=== PATIENT | male | born 1965 | race Hispanic/Latino ===

== ENCOUNTER 2018-01-26 09:55 | Observation (INO) | payer BC ==
[2018-01-26] MEDS ORDERED: NA CHLORIDE 0.9% 1,000 ML ONE ×3 (10:48→17:26)
[2018-01-26] MEDS ORDERED: ONDANSETRON 4 MG/2 ML VIAL ONE (10:48)
[2018-01-26] MEDS ORDERED: MORPHINE 4 MG/ML SYR ONE ×3 (10:48→16:27)
[2018-01-26 10:58] LABS: Absolute Lymphocytes (CBC) 1.3 K/uL (0.7-4.9); Absolute Neutrophil 11.4 K/uL (1.8-8.0); Basophils % 0.5 % (0-1.3); Eosinophils % 0.4 % (0-4.4); Lymphocytes % 9.4 % (15.3-44.8); MCH 29.9 pg (27.0-35.0); MPV 8.7 fL (7.6-11.3); Monocytes % 7.1 % (3.3-12.3); RBC Red Blood Cell Count 5.69 M/uL (4.33-5.43)
[2018-01-26 11:07] LABS: Bicarbonate 24 mEq/L (21-31); Glucose Level 218 mg/dL (65-120); Lipase 26 U/L (22-51); Sodium Level 134 mEq/L (135-145)
[2018-01-26 11:08] LABS: Glomerular Filtration Rate > 60 mL/min (>60)
[2018-01-26 11:13] LABS: ALT/SGPT 47 IU/L (10-60); AST/SGOT 25 IU/L (10-42); Albumin 4.3 g/dL (3.2-5.5); Alkaline Phosphatase 81 IU/L (42-121); Amylase Level 45 U/L (28-100); BUN Blood Urea Nitrogen 13 mg/dL (6-20); Bilirubin Direct 0.2 mg/dL (0-0.2); Bilirubin Total 1.4 mg/dL (0.3-1.2); Glomerular Filtration Rate > 90 mL/min (=/>90); Protein, Total 7.5 g/dL (6.0-8.3)
[2018-01-26 11:17] LABS: Urine Bilirubin NEGATIVE (NEG); Urine Blood 3+ (NEG); Urine Glucose 3+ (NEG); Urine Protein 3+ (NEG); Urine Specific Gravity >=1.030 (1.005-1.030); Urine Urobilinogen 0.2 mg/dL (0.2-1.0); Urine pH 6.5 (5.0-7.0)
[2018-01-26 11:31] LABS: Urine Appearance TURBID; Urine Color RED
[2018-01-26 11:34] LABS: Urine Bacteria NONE SEEN /HPF (NONE SEEN); Urine Culture Reflex Order NOT NEEDED; Urine RBC >50 /HPF (NONE SEEN)
--- NOTE | 2018-01-26 11:49 | RAD REPORT ---
EXAM DESCRIPTION: CTAbdomen Pelvis W Contrast - 01/26/2018 11:39 am CLINICAL HISTORY: Abdominal pain. Difficulty urinating. COMPARISON: 10/12/2012 TECHNIQUE: Biphasic CT imaging of the abdomen and pelvis was performed with 100 ml non-ionic IV cont rast. All CT scans are performed using dose optimization technique as appropriate and may include automated exposure control or mA/KV adjustment according to patient size. FINDINGS: Mild linear opacity is present in the lingula.No focal infiltrate is seen. Diffuse fatty liver is present. No focal mass or biliary dilatation. The spleen, pancreas, and kidney s show no acute or aggressive abnormality. No bowel obstruction, free air, free fluid or abscess. The appendix is normal. No evidence of signi ficant lymphadenopathy. Urinary bladder is decompressed with thickening of the wall. Asymmetric nodularity along the posterio r bladder wall, greater on the right measuring 6 mm noted. Prostate gland is mildly prominent. Fat co ntaining inguinal hernias are present bilaterally, greater on the right. No suspicious bony findings. IMPRESSION: Prominent thickening of the urinary bladder wall is noted with nodularity/mass along the right measuring 6 mm. Direct visualization with cystoscopy would be recommended.
[2018-01-26] MEDS ORDERED: LIDOCAINE VISCOUS 2% SOLN 15 ML UDC ONE (14:19)
[2018-01-26] MEDS ORDERED: NACL 0.9% IRR SOLN 0 ML IRR ONE (14:34)
--- NOTE | 2018-01-26 17:15 | ER ---
Nurse's Notes [facility] Name: Enmanuel Jones Age: 52 yrs Sex: Male : 1965 Arrival Date: 01/26/2018 Time: 10:01 Bed 20 Private MD: Diagnosis: Cystitis, unspecified with hematuria Presentation: 01/26 10:15 Presenting complaint: Patient states: c/o blood in urine. iw 10:15 Onset of symptoms was January 26, 2018. Care prior to arrival: None. iw 10:15 Acuity: BELLA 3 iw 10:41 Transition of care: patient was not received from another setting of care. iw 10:41 Method Of Arrival: Wheelchair iw Historical: - Allergies: 10:51 No Known Allergies; iw - Home Meds: 10:50 Amiodarone Oral [Active]; aspirin 81 mg Oral chew 1 tab once daily [Active]; iw atorvastatin 80 mg Oral tab 1 tab once daily [Active]; carvedilol 12.5 mg Oral tab 1 tab 2 times per day [Active]; Jardiance Oral [Active]; losartan 100 mg Oral tab 1 tab once daily [Active]; metformin 500 mg Oral Tb24 1 tab once daily [Active]; victoza [Active]; - PMHx: 10:50 Diabetes - NIDDM; Hyperlipidemia; Hypertension; Myocardial infarction; Pneumonia; iw - PSHx: 10:50 None; iw - Immunization history:: Adult Immunizations up to date. - Social history:: Smoking status: Patient/guardian denies using tobacco. Screenin:06 Abuse screen: Denies threats or abuse. Nutritional screening: No deficits noted. em Tuberculosis screening: No symptoms or risk factors identified. Fall Risk None identified. Assessment: 10:30 General: Appears in no apparent distress. uncomfortable, Behavior is calm, cooperative. em Pain: Complains of pain in abdomen Pain radiates to back Pain currently is 8 out of 10 on a pain scale. Pain began 0845. Neuro: Level of Consciousness is awake, alert, obeys commands, Oriented to person, place, time, situation. Cardiovascular: Capillary refill < 3 seconds Patient's skin is warm and dry. Respiratory: Airway is patent Respiratory effort is even, unlabored, Respiratory pattern is regular, symmetrical. GI: Abdomen is round non-distended, Bowel sounds present X 4 quads. Abd is soft X 4 quads Abdomen is tender to palpation in right lower quadrant and left lower quadrant Patient currently denies nausea, vomiting. : Urine is beatriz blood, Reports burning with urination, urinary frequency. EENT: No signs and/or symptoms were reported regarding the EENT system. Derm: Skin is intact, Skin is pink, warm \T\ dry. Musculoskeletal: Range of motion: intact in all extremities. 10:40 Reassessment: Patient appears in no apparent distress at this time. I agree with above iw assessment by Russ Mane LVN. 11:30 Reassessment: Patient appears in no apparent distress at this time. Patient and/or em family updated on plan of care and expected duration. Pain level reassessed. Patient is alert, oriented x 3, equal unlabored respirations, skin warm/dry/pink. gone for CT. 13:08 Reassessment: Patient appears in no apparent distress at this time. Patient and/or em family updated on plan of care and expected duration. Pain level reassessed. Patient is alert, oriented x 3, equal unlabored respirations, skin warm/dry/pink. has been using urinal to void, 300 mL beatriz flood urine, Brianna, FINANCIAL RECRUITER notified. 14:00 Reassessment: Patient appears in no apparent distress at this time. Patient and/or em family updated on plan of care and expected duration. Pain level reassessed. Patient is alert, oriented x 3, equal unlabored respirations, skin warm/dry/pink. 15:59 Reassessment: Patient appears in no apparent distress at this time. Patient and/or em family updated on plan of care and expected duration. Pain level reassessed. Patient is alert, oriented x 3, equal unlabored respirations, skin warm/dry/pink. 17:00 Reassessment: Patient appears in no apparent distress at this time. Patient and/or em family updated on plan of care and expected duration. Pain level reassessed. Patient is alert, oriented x 3, equal unlabored respirations, skin warm/dry/pink. Patient states symptoms have not improved. 17:40 Reassessment: Patient appears in no apparent distress at this time. No changes from em previously documented assessment. Patient and/or family updated on plan of care and expected duration. Pain level reassessed. Patient is alert, oriented x 3, equal unlabored respirations, skin warm/dry/pink. irrigated bladder with 1 L NS, clear tinged fluid, pt tolerated well. Vital Signs: 10:40 BP 136 / 88; Pulse 88; Resp 16 S; Temp 98.2; Pulse Ox 95% on R/A; iw 11:58 BP 119 / 76; Pulse 85; Resp 16; Pulse Ox 99% on R/A; Pain 2/10; em 14:04 BP 141 / 90; Pulse 89; Resp 18; Temp 98; Pulse Ox 99% on R/A; em 15:30 BP 133 / 86; Pulse 86; Resp 18; Pulse Ox 99% on R/A; Pain 4/10; em 16:30 BP 123 / 80; Pulse 94; Resp 16; Pulse Ox 99% on R/A; Pain 4/10; em 18:05 BP 126 / 85; Pulse 97; Resp 16; Pulse Ox 99% on R/A; Pain 5/10; em 19:14 BP 140 / 91; Pulse 95; Resp 17 S; Pulse Ox 97% on R/A; jd3 ED Course: 10:01 Patient arrived in ED. iw 10:12 Brianna Bloom NP is PHCP. rh1 10:12 Jung Moreland MD is Attending Physician. rh1 10:21 Russ Mane LVN is Primary Nurse. em 10:42 Triage completed. iw 10:45 No provider procedures requiring assistance completed. Inserted saline lock: 20 gauge em in right forearm, using aseptic technique. Blood collected. 10:45 Initial lab(s) drawn, by id, sent to lab. Urine collected: clean catch specimen, beatriz em blood. 11:06 Patient has correct armband on for positive identification. Placed in gown. Bed in low em position. Call light in reach. Side rails up X2. Adult w/ patient. 11:07 Arm band placed on. em 15:20 Coud inserted, using sterile technique, 18 Fr. Returned bloody urine. To gravity em drainage. Patient tolerated well. 15:43 Bladder irrigated via Weeks with 1 liter normal saline returned clear blood tinged em Patient tolerated well. 17:14 Shivani Muñoz MD is Hospitalizing Provider. rh1 17:40 Bladder irrigated via Weeks with 1 liter normal saline returned clear tinged fluid em Patient tolerated well. 20:26 Patient admitted, IV remains in place. jd3 Administered Medications: 10:35 Drug: NS 0.9% 1000 ml Route: IV; Rate: 1000 ml; Site: right forearm; iw 18:57 Follow up: IV Status: Completed infusion; IV Intake: 1000ml em 10:40 Drug: morphine 4 mg Route: IVP; Site: right forearm; iw 11:31 Follow up: Response: No adverse reaction; Pain is decreased em 10:40 Drug: Zofran 4 mg Route: IVP; Site: right forearm; iw 11:31 Follow up: Response: No adverse reaction em 15:00 Drug: morphine 4 mg Route: IVP; Site: right forearm; em 15:54 Follow up: Response: No adverse reaction; Pain is decreased em 15:15 Drug: Lidocaine Gel 2 % 1 application Route: Mucous Membrane; em 15:55 Follow up: Response: No adverse reaction em 16:15 Drug: morphine 4 mg Route: IVP; Site: right forearm; em 17:10 Follow up: Response: No adverse reaction; Pain is decreased em Intake: 18:57 IV: 1000ml; Total: 1000ml. em 13:07 beatriz blood urine em Output: 13:07 Urine: 300ml (Voided); Total: 300ml. em 13:07 beatriz blood urine em Outcome: 17:14 Decision to Hospitalize by Provider. [facility] 20:26 Admitted to Med/surg accompanied by alexandra, via stretcher, room 212, with chart, Report jd3 called to Lupe ASHER 20:26 Condition: stable 20:26 Instructed on the need for admit, Demonstrated understanding of instructions. 20:56 Patient left the ED. jd3 Signatures: Russ Mane LVN REFUELING RAMP ATTENDANT em Bethanie Carbajal, RN LB iw Brianna Bloom NP FINANCIAL RECRUITER 1 Juan Miguel Hinds RN RN jd3
--- NOTE | 2018-01-26 17:15 | EDPHYS ---
Physician Documentation [facility] Name: Enmanuel Jones Age: 52 yrs Sex: Male : 1965 Arrival Date: 01/26/2018 Time: 10:01 Bed 20 Private MD: ED Physician Jung Moreland HPI: 01/26 10:12 This 52 yrs old Male presents to ER via Unassigned with complaints of rh1 hematuria, flank/abdominal pain. 10:12 The patient presents with urinary symptoms, hesitancy to initiate urine stream. Onset: rh1 The symptoms/episode began/occurred today, at 08:45. Modifying factors: The symptoms are alleviated by nothing, the symptoms are aggravated by nothing. Associated signs and symptoms: Pertinent positives: abdominal pain, hematuria, Pertinent negatives: nausea, vomiting. Severity of symptoms: At their worst the symptoms were moderate, in the emergency department the symptoms are unchanged. The patient has not experienced similar symptoms in the past. The patient has not recently seen a physician. Pt. reports at 0845 this am began with beatriz hematuria, bilateral flank pain, intermittently radiating into abdomen, described as "muscle soreness.". Historical: - Allergies: 10:51 No Known Allergies; iw - Home Meds: 10:50 Amiodarone Oral [Active]; aspirin 81 mg Oral chew 1 tab once daily [Active]; iw atorvastatin 80 mg Oral tab 1 tab once daily [Active]; carvedilol 12.5 mg Oral tab 1 tab 2 times per day [Active]; Jardiance Oral [Active]; losartan 100 mg Oral tab 1 tab once daily [Active]; metformin 500 mg Oral Tb24 1 tab once daily [Active]; victoza [Active]; - PMHx: 10:50 Diabetes - NIDDM; Hyperlipidemia; Hypertension; Myocardial infarction; Pneumonia; iw - PSHx: 10:50 None; iw - Immunization history:: Adult Immunizations up to date. - Social history:: Smoking status: Patient/guardian denies using tobacco. ROS: 10:12 Constitutional: Negative for fever, chills rh1 10:12 Cardiovascular: Negative for chest pain. 10:12 Respiratory: Negative for cough, shortness of breath. 10:12 Abdomen/GI: Positive for abdominal pain, Negative for nausea and vomiting. 10:12 Back: Positive for flank pain, bilaterally. 10:12 : Positive for urinary frequency, hematuria, burning with urination. 10:12 Neuro: Negative for altered mental status, dizziness, numbness, tingling, weakness. 10:12 All other systems are negative. Exam: 10:12 Constitutional: This is a well developed, well nourished patient who is awake, alert, rh1 and in no acute distress. Head/Face: Normocephalic, atraumatic. Neck: Trachea midline, and no cervical lymphadenopathy. Supple, full range of motion without nuchal rigidity. No Meningismus. Chest/axilla: Normal chest wall appearance and motion. Nontender with no deformity. No lesions are appreciated. Cardiovascular: Regular rate and rhythm with a normal S1 and S2. No gallops, murmurs, or rubs. No JVD. No pulse deficits. Respiratory: Lungs have equal breath sounds bilaterally, clear to auscultation. No rales, rhonchi or wheezes noted. No increased work of breathing. 10:12 Skin: Warm, dry with normal turgor. Normal color with no rashes, no lesions, and no evidence of cellulitis. MS/ Extremity: Pulses equal, no cyanosis. Neurovascular intact. Full, normal range of motion. 10:12 Abdomen/GI: Inspection: abdomen appears normal, bruising, is not seen, distension, is not seen, Bowel sounds: normal, in all quadrants, active, all quadrants, Palpation: abdomen is soft and non-tender, in all quadrants, Liver: no appreciated palpable abnormalities. 10:12 Back: Exam negative for ecchymosis ROM is normal, painless, CVA tenderness, that is mild, is noted bilaterally. 10:12 Musculoskeletal/extremity: Pulses: noted to be 2+ in the right radial artery, right posterior tibial artery, right dorsalis pedis artery, left radial artery, left posterior tibial artery and left dorsalis pedis artery. 10:12 Neuro: Orientation: is normal, to person, place \\T\\ time. Mentation: is normal, lucid, able to follow commands, Motor: is normal, moves all fours, strength is 5/5 in all extremities, Sensation: is normal, no obvious gross deficits, numbness, is not appreciated, tingling, is not appreciated, Gait: is steady, at a normal pace, without difficulty. Vital Signs: 10:40 BP 136 / 88; Pulse 88; Resp 16 S; Temp 98.2; Pulse Ox 95% on R/A; iw 11:58 BP 119 / 76; Pulse 85; Resp 16; Pulse Ox 99% on R/A; Pain 2/10; em 14:04 BP 141 / 90; Pulse 89; Resp 18; Temp 98; Pulse Ox 99% on R/A; em 15:30 BP 133 / 86; Pulse 86; Resp 18; Pulse Ox 99% on R/A; Pain 4/10; em 16:30 BP 123 / 80; Pulse 94; Resp 16; Pulse Ox 99% on R/A; Pain 4/10; em 18:05 BP 126 / 85; Pulse 97; Resp 16; Pulse Ox 99% on R/A; Pain 5/10; em 19:14 BP 140 / 91; Pulse 95; Resp 17 S; Pulse Ox 97% on R/A; jd3 MDM: 10:12 Patient medically screened. rh1 11:50 Response to treatment: reports pain has improved, denies any pain at this time; reports rh1 5 - 6 episodes of blood with urination, moderate amount; he has a urinal at bedside, but has not been using it, discussed with pt. to use urinal from this point on while in ER. 11:59 Physician consultation: Pedro Maravilla MD was called at 11:59, was contacted at 11:59, [facility] regarding consult, patient's condition, left message. 16:34 Physician consultation: Pedro Maravilla MD was called at 16:35, was contacted at 16:35, [facility] regarding consult, patient's condition, and will see patient wants normal saline continuous bladder irrigation and titrate to clear, hold ASA, chem 7 and CBC in am, Pt/PTT, INR, NPO at 0000. 16:42 Physician consultation: Elias Aranda DO was called at 16:42, was contacted at 16:42, 1 regarding admission, and will see patient in ED, shortly. 17:10 Data reviewed: vital signs, nurses notes, lab test result(s), radiologic studies, CT rh1 scan, and as a result, I will admit patient. Data interpreted: Pulse oximetry: on room air is 99 %. Interpretation: normal. Counseling: I had a detailed discussion with the patient and/or guardian regarding: the historical points, exam findings, and any diagnostic results supporting the discharge/admit diagnosis, lab results, radiology results, the need for further work-up and treatment in the hospital. Physician consultation: Shivani Muñoz MD was called at 17:11, was contacted at 17:11, regarding admission, consult. 01/26 10:13 Order name: Amylase, Serum 01/26 10:13 Order name: Basic Metabolic Panel 01/26 10:13 Order name: CBC with Diff 01/26 10:13 Order name: Creatinine for Radiology 01/26 10:13 Order name: Hepatic Function 01/26 10:13 Order name: Lipase [facility] 01/26 10:13 Order name: Urine Microscopic Only 01/26 10:47 Order name: UA ok 01/26 11:07 Order name: Basic Metabolic Panel; Complete Time: 11:28 [facility]RI 01/26 11:07 Order name: Lipase; Complete Time: 11:28 [facility] 01/26 11:08 Order name: CBC with Automated Diff; Complete Time: 11:08 [facility] 01/26 11:08 Order name: Creatinine (Radiology Only); Complete Time: 11:08 [facility]RI 01/26 11:14 Order name: Liver (Hepatic) Function; Complete Time: 11:28 [facility]RI 01/26 11:14 Order name: Amylase Level; Complete Time: 11:28 [facility]RI 01/26 10:13 Order name: IV Saline Lock; Complete Time: 10:49 01/26 10:13 Order name: Labs collected and sent; Complete Time: 10:49 01/26 10:13 Order name: Urine Dipstick-Ancillary (obtain specimen); Complete Time: 10:49 01/26 10:13 Order name: CT Abd/Pelvis - W/Contrast 01/26 11:31 Order name: Urinalysis W/Microscopic; Complete Time: 11:35 [facility]RI 01/26 11:50 Order name: CT; Complete Time: 11:54 [facility]RI 01/26 16:33 Order name: PT-INR 01/26 16:33 Order name: Ptt, Activated 01/26 17:47 Order name: Protime (+INR); Complete Time: 18:10 [facility]RI 01/26 17:47 Order name: PTT, Activated Partial Thromb; Complete Time: 18:10 EDMS 01/26 11:58 Order name: Vital Signs; Complete Time: 12:00 rh1 01/26 13:57 Order name: Weeks-Three way: 1 L NS; Complete Time: 15:41 rh1 Administered Medications: 10:35 Drug: NS 0.9% 1000 ml Route: IV; Rate: 1000 ml; Site: right forearm; iw 18:57 Follow up: IV Status: Completed infusion; IV Intake: 1000ml em 10:40 Drug: morphine 4 mg Route: IVP; Site: right forearm; iw 11:31 Follow up: Response: No adverse reaction; Pain is decreased em 10:40 Drug: Zofran 4 mg Route: IVP; Site: right forearm; iw 11:31 Follow up: Response: No adverse reaction em 15:00 Drug: morphine 4 mg Route: IVP; Site: right forearm; em 15:54 Follow up: Response: No adverse reaction; Pain is decreased em 15:15 Drug: Lidocaine Gel 2 % 1 application Route: Mucous Membrane; em 15:55 Follow up: Response: No adverse reaction em 16:15 Drug: morphine 4 mg Route: IVP; Site: right forearm; em 17:10 Follow up: Response: No adverse reaction; Pain is decreased em Disposition: 20:46 Co-signature as Attending Physician, Jung Moreland MD I agree with the assessment and kdr plan of care. Disposition: 01/26/18 17:14 Hospitalization ordered by Shivani Muñoz for Observation. Preliminary diagnosis is Cystitis, unspecified with hematuria. - Bed requested for Telemetry/MedSurg (observation). - Status is Observation. jd3 - Condition is Stable. - Problem is new. - Symptoms are unchanged. UTI on Admission? Yes Signatures: Dispatcher [employer] EDRI Jung Moreland MD MD kdr Alhaji, Russ, RFID TECHNICIAN RFID TECHNICIAN em Bethanie Carbajal, LB RN iw Brianna Bloom, WEED SPRAYER WEED SPRAYER rh1 Cesia Kulkarni RN RN df Davies, Jonathon, RN RN jd3 Corrections: (The following items were deleted from the chart) 10:31 10:12 Pt. reports at 0845 this am began with beatriz hematuria, bilateral flank pain, rh1 radiating into abdomen. . rh1 17:13 16:34 Physician consultation: Pedro Maravilla MD was called at 16:35, was contacted at [facility] 16:35, regarding consult, patient's condition, and will see patient rh1
[2018-01-26 17:44] LABS: Protime INR 1.06
--- NOTE | 2018-01-26 18:05 | P.HP ---
Certification for Inpatient Patient admitted to: Inpatient With expected LOS: >2 Midnights Patient will require the following post-hospital care: None Practitioner: I am a practitioner with admitting privileges, knowledge of patient current condition, hospital course, and medical plan of care. Services: Services provided to patient in accordance with Admission requirements found in Title 42 Section 412.3 of the Code of Federal Regulations Patient History Date of Service: 01/26/18 Primary Care Provider: Dr Dowling Reason for admission: Hematuria History of Present Illness: This is a 52-year-old male with significant past medical history of hypertension , diabetes, CAD with [place] who presented to the ED having hematuria that was spontaneous and started about 845 this morning. Patient stated that he was at home went to the restroom and started having some pain with hematuria since this morning and has been going on for about 6-8 times today. Patient stated that he has never had anything like this happen to him before this is the 1st time he had the symptoms. Patient is not having increased frequency burning during urination or any other associated symptoms as well. In the ER patient was found to have hematuria for 3-4 times had over 300 mL of urine with initially as well. Abdominal CT was done which was consistent with prominent thickening of urinary bladder and right-sided possible lesion. Medicine team was consulted to admit the patient for possible surgical intervention with urology tomorrow morning. Allergies No Known Allergies Allergy (Unverified 08/12/12 16:57) Review of Systems 10-point ROS is otherwise unremarkable Physical Examination - Physical Exam General: Alert, In no apparent distress, Obese HEENT: Atraumatic Neck: Supple Respiratory: Clear to auscultation bilaterally, Normal air movement Cardiovascular: Regular rate/rhythm, Normal S1 S2 Gastrointestinal: Normal bowel sounds, No tenderness Musculoskeletal: No tenderness Integumentary: No rashes Neurological: Normal speech, Normal strength at 5/5 x4 extr, Normal tone Lymphatics: No axilla or inguinal lymphadenopathy Urinary: Weeks catheter (With Hematuria) - Studies Laboratory Data (last 24 hrs) 01/26/18 10:40: Creatinine 0.84 01/26/18 10:40: WBC 13.8 H, Hgb 17.0, Hct 50.0 H, Plt Count 183 01/26/18 10:40: Sodium 134 L, Potassium 4.0, BUN 13, Creatinine 0.86, Glucose 218 H, Total Bilirubin 1.4 H, AST 25, ALT 47, Alkaline Phosphatase 81, Amylase 45, Lipase 26 Assessment and Plan - Problems (Diagnosis) (1) Hematuria Current Visit: Yes Status: Acute Plan: Acute Hematuria -Weeks Catherter instered in the ER -H/H Stable -Continuous Bladder irrigation -Urology consulted. -OR vivi -Abd ct with Thickening and possible lesion -UA negative for UTI -IV fluids and abx. Qualifiers: Hematuria type: gross Qualified Code(s): R31.0 - Gross hematuria (2) HTN (hypertension) Current Visit: Yes Status: Chronic Plan: Will restart home medication Qualifiers: Hypertension type: essential hypertension Qualified Code(s): I10 - Essential (primary) hypertension (3) Diabetes Current Visit: Yes Status: Chronic Qualifiers: Diabetes mellitus type: type 2 Diabetes mellitus emt intermediate insulin use: without emt intermediate use Diabetes mellitus complication status: without complication Qualified Code(s): E11.9 - Type 2 diabetes mellitus without complications (4) CAD (coronary artery disease) Current Visit: Yes Status: Acute Plan: Stable now. -Hold ASA for now. Qualifiers: Coronary Disease-Associated Artery/Lesion type: [place] artery [place] vs. transplanted heart: [place] heart Associated angina: without angina Qualified Code(s): I25.10 - Atherosclerotic heart disease of [place] coronary artery without angina pectoris Discharge Plan: Home Plan to discharge in: 48 Hours - Advance Directives Does patient have a Living Will: No Does patient have a Durable POA for Healthcare: No
[2018-01-26] MEDS ORDERED: ACETAMINOPHEN 500 MG TAB PO PRN (20:01)
[2018-01-26] MEDS ORDERED: ONDANSETRON 4 MG (ODT) TAB PO PRN (20:01)
[2018-01-26] MEDS: TRAMADOL HCL 50 MG TAB PO PRN (21:39)
[2018-01-26] MEDS: NA CHLORIDE 0.9% 1,000 ML IV SCH (21:59)
[2018-01-26] MEDS: CEFTRIAXONE/SWI 1gm 1 GM/10 ML SYR IV SCH (22:03)
[2018-01-26] MEDS: INSULIN -REGULAR HUMAN 50 UNIT/0.5 ML ML SQ SCH (22:11)
[2018-01-26 23:19] VITALS: BMI 40.2
[2018-01-27] MEDS: TRAMADOL HCL 50 MG TAB PO PRN ×2 (04:55→11:12)
[2018-01-27] MEDS: NA CHLORIDE 0.9% 1,000 ML IV SCH ×3 (04:56→20:32)
[2018-01-27 05:26] LABS: Absolute Lymphocytes (CBC) 1.4 K/uL (0.7-4.9); Basophils % 0.5 % (0-1.3); Eosinophils % 0.5 % (0-4.4); Hematocrit 47.4 % (39.6-49.0); Lymphocytes % 11.4 % (15.3-44.8); MCH 29.8 pg (27.0-35.0); MCV 89.4 fL (80-100); MPV 8.7 fL (7.6-11.3); Monocytes % 7.9 % (3.3-12.3)
[2018-01-27 05:50] LABS: Albumin 3.4 g/dL (3.2-5.5); Bilirubin Total 1.1 mg/dL (0.3-1.2); Phosphorus 3.2 mg/dL (2.5-4.3); Potassium 4.1 mEq/L (3.6-5.0); Protein, Total 6.1 g/dL (6.0-8.3)
[2018-01-27] MEDS: INSULIN -REGULAR HUMAN 50 UNIT/0.5 ML ML SQ SCH ×4 (07:30→21:00)
[2018-01-27] MEDS ORDERED: MORPHINE 2 MG/ML SYR IV ONE (07:33)
[2018-01-27] MEDS: CEFTRIAXONE/SWI 1gm 1 GM/10 ML SYR IV SCH (08:48)
--- NOTE | 2018-01-27 12:36 | P.PN ---
Subjective Date of Service: 01/27/18 Primary Care Provider: Dr Dowling Chief Complaint: Hematuria Patient seen and examined at bedside with RN. Case discussed with family and patient at bedside. Appreciated recommendations from Dr. Maravilla at this time. Awaiting OR procedure. Review of Systems 10-point ROS is otherwise unremarkable Physical Examination - Vital Signs Temperature: 97.9 F Blood Pressure: 134/78 Pulse: 80 Respirations: 20 Pulse Ox (%): 96 - Physical Exam General: Alert, In no apparent distress, Oriented x3 HEENT: Atraumatic, PERRLA, EOMI Neck: Supple, JVD not distended Respiratory: Clear to auscultation bilaterally, Normal air movement Cardiovascular: Regular rate/rhythm, Normal S1 S2 Gastrointestinal: Normal bowel sounds, No tenderness Musculoskeletal: No tenderness Integumentary: No rashes Neurological: Normal speech, Normal tone, Normal affect Lymphatics: No axilla or inguinal lymphadenopathy - Studies Medications List Reviewed: Yes Assessment & Plan - Problems (Diagnosis) (1) Hematuria Current Visit: Yes Status: Acute Plan: Acute Hematuria -Weeks Catherter instered in the ER -H/H Stable -Continuous Bladder irrigation -Urology consulted. -OR today -Abd ct with Thickening and possible lesion -UA negative for UTI -IV fluids and abx. Qualifiers: Hematuria type: gross Qualified Code(s): R31.0 - Gross hematuria (2) HTN (hypertension) Current Visit: Yes Status: Chronic Plan: Will restart home medication Qualifiers: Hypertension type: essential hypertension Qualified Code(s): I10 - Essential (primary) hypertension (3) Diabetes Current Visit: Yes Status: Chronic Qualifiers: Diabetes mellitus type: type 2 Diabetes mellitus terminal system operator insulin use: without detention use Diabetes mellitus complication status: without complication Qualified Code(s): E11.9 - Type 2 diabetes mellitus without complications (4) CAD (coronary artery disease) Current Visit: Yes Status: Acute Plan: Stable now. -Hold ASA for now. Qualifiers: Coronary Disease-Associated Artery/Lesion type: [place] artery [place] vs. transplanted heart: [place] heart Associated angina: without angina Qualified Code(s): I25.10 - Atherosclerotic heart disease of [place] coronary artery without angina pectoris Discharge Plan: Home Plan to discharge in: 24 Hours - Code Status/Comfort Care Code Status Assessed: Yes Critical Care: No
--- NOTE | 2018-01-27 14:41 | CON ---
History: This is a 52-year-old gentleman who was in good state of health until yesterday, began expe riencing gross hematuria with slight dysuria. His urine study showed 3+ blood, negative nitrite and negative esterase. He was not able to be cleared in the ER with a normal catheter. We were unable t o put a 3 way Weeks catheter in. He has been using a normal catheter overnight and manual irrigation had been performed. It was still grossly bloody. His H and H are stable. We plan to do a cysto, c lot evacuation, possible TURBT. His CAT scan did show some thickening of the bladder on the right la teral side, possible clot, possible tumor. We will need to rule that out. He is going to need a cys toscopy and UA. He is already in the hospital, n.p.o. Since yesterday. Aspirin has been stopped. H e is ready to proceed. Consent was done. He is booked in the OR. We are going to do sometime this afternoon after 3 p.m. Allergies: NO KNOWN DRUG ALLERGIES. Review of Systems: A 10-point review of systems unremarkable. Home Medications: Amiodarone, aspirin, atorvastatin, carvedilol, losartan, metformin, Victoza. Past Medical History: Noh-weoybzz-ouvlqbuya diabetes mellitus, hyperlipidemia, hypertension, myocard ial fraction, pneumonia. Past Surgical History: None. Immunizations: Up to date. Social History: Smoking status; denies tobacco smoking. Physical Examination: VITAL SIGNS: Temperature 97.9, pulse 80, respiratory rate 20, blood pressure 174/78. OS 96% saturat ion on room air. His pain level is 8/10. HEENT: Atraumatic, normocephalic. Chest: Clear. Abdomen: Soft, nontender. exam: Both testicles descended. Phallus with 2-way catheter draining bloody urine. MICHAEL: Deferred for now. Extremities: Normal range of motion. Laboratory Data: UA as mentioned above. Hematology; white count 12.5, H and H 15.8 and 47, platelet count 162. Coags all normal. Chemistry; sodium 136, potassium 4.1, chloride 103, carbon dioxide 28 . BUN 11, creatinine 0.9, GFR 88, glucose 190. Assessment: Gross hematuria, filling defect in the bladder, possible clot, possible tumor. Plan: Plan is for cysto ,clot evacuation, possible TURBT, and Weeks placement. General information and alternative and risks were given. The patient wishes to proceed. JOSHUA/RAMIRO Voice ID: [id number] Report ID: [id number]
[2018-01-27] MEDS ORDERED: D50W 25 GM/50 ML SYRINGE IV PRN (16:21)
[2018-01-27] MEDS ORDERED: GLUCAGON 1 MG/VIAL IM PRN (16:21)
[2018-01-27] MEDS ORDERED: NA CHLORIDE 0.9% 1,000 ML ONE (16:27)
[2018-01-27] MEDS ORDERED: PROPOFOL 200 MG/20 ML VIAL IV ONE (17:25)
[2018-01-27] MEDS ORDERED: LIDOCAINE 2% MPF 5 ML VIAL ONE (17:26)
[2018-01-27] MEDS ORDERED: FENTANYL CITR 100 MCG/2 ML ONE ×2 (17:27→18:06)
[2018-01-27] MEDS ORDERED: GENTAMICIN 80 MG/100 ML BAG 80 MG/100 ML BAG IV ONE (17:50)
[2018-01-27] MEDS: MORPHINE 4 MG/ML SYR ONE ×5 (18:55→19:10)
[2018-01-27] MEDS ORDERED: NACL 0.9% IRR SOLN 2,000 ML IRR ONE (19:15)
[2018-01-27] MEDS ORDERED: NACL 0.9% IRR SOLN 4,000 ML IRR ONE (22:52)
[2018-01-27] MEDS ORDERED: SODIUM CHL 0.9% IRR SOLN 2000 ML IRR SCH (23:00)
[2018-01-28] MEDS: TRAMADOL HCL 50 MG TAB PO PRN ×2 (01:09→05:46)
--- NOTE | 2018-01-28 01:17 | OP ---
Date of Procedure: 01/27/2018 Surgeon: Pedro Maravilla MD Anesthesiologist: Dr. Fisher. Preoperative Diagnosis: Gross hematuria. Postoperative Diagnoses: Gross hematuria, bladder mucosal irritation, small vein bleeding from the b ladder neck area. Procedures Performed: 1.Cystoscopy, clot evacuation of tiny amount of clots. 2.Cysto biopsy of posterior bladder wall erythematous area and fulguration of those 3 areas and fulg uration of bladder neck bleeding vein area. Anesthesia: General. Estimated Blood Loss: Minimal. Replacement: See record. Path Specimen: Cold cup biopsy x3. Drains Placed: A 20-Israeli 3-way Weeks hematuria catheter. Complication: No complications. Indication: A pleasant 52-year-old gentleman admitted with gross hematuria overnight was not clearin g. It was difficult for him to get a 3-way catheter in so he was taken for OR for cystoscopy, clot e vacuation, and for evaluating the bladder because there was a mass seen in the bladder. There was po ssible clot, possible tumor. He was given all the general information, alternatives and risks, and w ishes to proceed. The patient was placed in the supine lithotomy position. After general anesthesia was administered, he was prepped and draped. We scoped the bladder first with a 21-Israeli scope. Penile and bulbar ur ethra were normal. The prostatic urethra was opened. No signs of any significant BPH. The bladder was little bit cloudy from the hematuria. Small clots were formed in the bladder. These were flushe d away. There was some erythema in the posterior bladder wall resembling a UTI versus irritation fro m a Weeks catheter versus CIS looks more like benign inflammation. Once the blood was irrigated israel red, we then did cold cup biopsy in the posterior bladder wall x3, fulgurated those areas and fulgura leigha the bleeding bladder neck area that was seen then a 20-Israeli 3-way Weeks catheter was placed and normal saline CBI was began. He went to recovery room in stable condition. PB/MODL Voice ID: [id number] Report ID: [id number]
[2018-01-28 05:31] LABS: Absolute Lymphocytes (CBC) 1.2 K/uL (0.7-4.9); Absolute Monocytes 0.7 K/uL (0.1-1.3); Absolute Neutrophil 5.8 K/uL (1.8-8.0); Basophils % 0.6 % (0-1.3); Eosinophils % 1.8 % (0-4.4); Lymphocytes % 15.1 % (15.3-44.8); MCH 29.8 pg (27.0-35.0); MCV 87.8 fL (80-100); MPV 8.3 fL (7.6-11.3); Monocytes % 8.6 % (3.3-12.3)
[2018-01-28 05:37] LABS: ALT/SGPT 27 IU/L (10-60); AST/SGOT 15 IU/L (10-42); Albumin 3.1 g/dL (3.2-5.5); Alkaline Phosphatase 66 IU/L (42-121); BUN Blood Urea Nitrogen 9 mg/dL (6-20); Bicarbonate 27 mEq/L (21-31); Bilirubin Total 0.8 mg/dL (0.3-1.2); Glomerular Filtration Rate > 90 mL/min (=/>90); Glucose Level 132 mg/dL (65-120); Phosphorus 3.1 mg/dL (2.5-4.3); Protein, Total 5.8 g/dL (6.0-8.3); Sodium Level 137 mEq/L (135-145)
[2018-01-28] MEDS: NA CHLORIDE 0.9% 1,000 ML IV SCH (05:48)
[2018-01-28] MEDS: INSULIN -REGULAR HUMAN 50 UNIT/0.5 ML ML SQ SCH ×2 (07:30→11:30)
--- NOTE | 2018-01-28 08:42 | PN ---
Subjective: The patient slept well last night. Objective: Urine is clear, very light pink. Laboratory Data: Labs are stable. No more gross hematuria. Assessment: Status post cysto bladder biopsy and 3-way catheter placement postop day 1. Plan: Discontinue Weeks catheter. The patient may void and go home. I have written him a script for Bactrim DS 1 p.o. b.i.d. #10, Ultram 50 mg 1 p.o. q.6 p.r.n. #15, Uri bel 1 p.o. q.6 p.r.n. dysuria #15. He is to follow up with me in about a week or so to go over the p athology results. JOSHUA/RAMIRO Voice ID: [id number] Report ID: [id number]
[2018-01-28] MEDS: CEFTRIAXONE/SWI 1gm 1 GM/10 ML SYR IV SCH (09:33)
[2018-01-28 10:18] VITALS: O2SAT 96
--- NOTE | 2018-01-28 11:01 | P.SSS ---
Patient History Date of Service: 01/28/18 Primary Care Provider: Dr Dowling Reason for admission: Hematuria History of Present Illness: This is a 52-year-old male with significant past medical history of hypertension , diabetes, CAD with RI who presented to the ED having hematuria that was spontaneous and started about 845 this morning. Patient stated that he was at home went to the restroom and started having some pain with hematuria since this morning and has been going on for about 6-8 times today. Patient stated that he has never had anything like this happen to him before this is the 1st time he had the symptoms. Patient is not having increased frequency burning during urination or any other associated symptoms as well. In the ER patient was found to have hematuria for 3-4 times had over 300 mL of urine with initially as well. Abdominal CT was done which was consistent with prominent thickening of urinary bladder and right-sided possible lesion. Medicine team was consulted to admit the patient for possible surgical intervention with urology tomorrow morning. Allergies No Known Allergies Allergy (Unverified 01/26/18 21:18) Home Medications: Aspirin Chewable [Aspirin Chewable*] 81 mg PO DAILY 01/26/18 Atorvastatin Calcium [Lipitor] 80 mg PO BEDTIME 01/26/18 Carvedilol [Carvedilol] 12.5 mg PO DAILY 01/26/18 Docosahexanoic AC/Epa [Fish Oil 1,000 MG*] 1,000 mg PO BID 01/26/18 Dulaglutide [Trulicity] 1.5 mg SQ EVERY 7TH DAY 01/26/18 Losartan Potassium [Cozaar] 100 mg PO DAILY 01/26/18 Multivitamin [Multivitamins] 1 tab PO DAILY 01/26/18 Smz./Tmp. [Bactrim Ds 800 MG/160 MG] 1 tab PO BID #10 tab 01/28/18 Uribel 1 tab PO Q6HP PRN #15 01/28/18 traMADol HCL [Ultram] 50 mg PO Q6H PRN #15 tab 01/28/18 - Past Medical/Surgical History Has patient received pneumonia vaccine in the past: Yes Diabetic: Yes -: DM -: hyperlipidemia -: HTN -: RI x2 -: pnuemonia -: kidney stones -: heart cath 5 yrs ago - Family History Mother -: Heart disease, Hypertension, Diabetes, Stroke Father History Unknown: Yes -: Heart disease, Hypertension - Social History Smoking Status: Never smoker Alcohol use: Yes CD- Drugs: No Caffeine use: Yes Place of Residence: Home Review of Systems 10-point ROS is otherwise unremarkable Physical Examination - Vital Signs Temperature: 98.0 F Blood Pressure: 127/74 Pulse: 79 Respirations: 16 Pulse Ox (%): 96 - Physical Exam General: Alert, In no apparent distress, Oriented x3 HEENT: Atraumatic, PERRLA, Mucous membr. moist/pink, EOMI, Sclerae nonicteric Neck: Supple, 2+ carotid pulse no bruit, No LAD, Without JVD or thyroid abnormality Respiratory: Clear to auscultation bilaterally, Normal air movement Cardiovascular: Regular rate/rhythm, Normal S1 S2 Gastrointestinal: Normal bowel sounds, No tenderness Musculoskeletal: No tenderness Integumentary: No rashes Neurological: Normal gait, Normal speech, Normal strength at 5/5 x4 extr, Normal tone, Normal affect Lymphatics: No axilla or inguinal lymphadenopathy - Diagnosis (Problem(s)) (1) Hematuria Onset Date: 01/27/18 Current Visit: Yes Status: Resolved Plan: Acute Hematuria that was spontaneous -Weeks Catherter instered in the ER with manual Bladder Irrigation -H/H Stable though out hospital stay -Status post cysto bladder biopsy and 3-way catheter placement postop day 1. -resolved after the Procedure -DC home on PO abx and f/u with Dr Maravilla Qualifiers: Hematuria type: gross Qualified Code(s): R31.0 - Gross hematuria (2) HTN (hypertension) Onset Date: 01/27/18 Current Visit: Yes Status: Chronic Qualifiers: Hypertension type: essential hypertension Qualified Code(s): I10 - Essential (primary) hypertension (3) Diabetes Onset Date: 01/27/18 Current Visit: Yes Status: Chronic Qualifiers: Diabetes mellitus type: type 2 Diabetes mellitus music agent insulin use: without mcfp use Diabetes mellitus complication status: without complication Qualified Code(s): E11.9 - Type 2 diabetes mellitus without complications (4) CAD (coronary artery disease) Onset Date: 01/27/18 Current Visit: Yes Status: Acute Plan: Qualifiers: Coronary Disease-Associated Artery/Lesion type: [place] artery [place] vs. transplanted heart: [place] heart Associated angina: without angina Qualified Code(s): I25.10 - Atherosclerotic heart disease of [place] coronary artery without angina pectoris - Disposition Disposition: ROUTINE DISCHARGE Condition: GOOD Diet: Regular Activity: Ad allie
[2018-01-28 14:40] VITALS: BP 124/75; TEMP 97.8
== END 2018-01-28 13:30 | disposition home or self-care (01) ==
LOC: ER 09:55 → ERHOLD 16:48 → OBSVTOIN 16:48 → INTOOBSV 16:48 → 2ND 19:36 → OBSVTOIN 01-28 10:35 → INTOOBSV 01-28 10:35
PROVIDERS: ADMIT Family Medicine; ATTEND Family Medicine
PROC: 0TBB8ZX Excision of Bladder, Via Natural or Artificial Opening Endoscopic, Diagnostic (ICD-10-PCS; 2018-01-27)
PROC: 0TCB8ZZ Extirpation of Matter from Bladder, Via Natural or Artificial Opening Endoscopic (ICD-10-PCS; principal; 2018-01-27 16:15)
DX: R31.0 Gross hematuria (principal); I10 Essential (primary) hypertension; E11.9 Type 2 diabetes mellitus without complications; I25.10 Atherosclerotic heart disease of native coronary artery without angina pectoris; I25.2 Old myocardial infarction; E78.5 Hyperlipidemia, unspecified
CPT/HCPCS: 36415; 51700; 74177; 80048; 80053; 80076; 81001; 82150; 82962; 83690; 83735; 84100; 85025; 85610; 85730; 86850; 86900; 86901; 88305; 94760; 96361; 96374; 96375; 99285; G0378; J0696; J1580; J2270; J2405; J3010; J7030; Q9967

== ENCOUNTER 2018-02-19 09:55 | Emergency (ER) | payer BC ==
[2018-02-19] MEDS ORDERED: MORPHINE 10 MG/ML VIAL ONE (11:36)
[2018-02-19 11:37] LABS: Absolute Monocytes 0.6 K/uL (0.1-1.3); Absolute Neutrophil 5.5 K/uL (1.8-8.0); Eosinophils % 1.3 % (0-4.4); Hematocrit 50.9 % (39.6-49.0); Lymphocytes % 24.4 % (15.3-44.8); MCH 28.7 pg (27.0-35.0); MPV 8.6 fL (7.6-11.3); Monocytes % 7.5 % (3.3-12.3); RBC Red Blood Cell Count 5.78 M/uL (4.33-5.43)
[2018-02-19] MEDS ORDERED: NA CHLORIDE 0.9% 1,000 ML ONE (11:37)
[2018-02-19] MEDS ORDERED: ONDANSETRON 4 MG/2 ML VIAL ONE (11:37)
[2018-02-19 11:55] LABS: Glomerular Filtration Rate > 60 mL/min (>60)
[2018-02-19 11:57] LABS: Potassium 4.1 mEq/L (3.6-5.0)
[2018-02-19 12:03] LABS: Albumin 4.1 g/dL (3.2-5.5); Bilirubin Direct 0.1 mg/dL (0-0.2); Bilirubin Total 0.6 mg/dL (0.3-1.2); Magnesium 1.9 mg/dL (1.8-2.5); Protein, Total 7.5 g/dL (6.0-8.3)
[2018-02-19 12:06] LABS: CKMB Creatine Kinase MB 1.3 ng/ml (0.3-4.0)
--- NOTE | 2018-02-19 12:16 | RAD REPORT ---
EXAM DESCRIPTION: CT - Stone Protocol - 02/19/2018 12:04 pm CLINICAL HISTORY: Abdominal pain radiating to the back COMPARISON: CT January 26 TECHNIQUE: Axial 5 mm thick images were obtained without oral or IV contrast. The [id number]-[id number] span s the entirety of the system partially obscuring uppermost abdomen and lung bases. All CT scans are performed using dose optimization technique as appropriate and may include automated exposure control or mA/KV adjustment according to patient size. FINDINGS: No hydronephrosis is present and no obstructing ureteral calculi. No suspicious renal mass es. Isodense masses and pyelonephritis are not excluded on a stone protocol CT scan. Trace amount of stranding or edema present along the course of each ureter. The bladder wall thickening seen on the p rior study is not appreciated on the current examination. Urinary bladder is tightly contracted which limits assessment. No prostate or seminal vesicle abnormality seen. Liver shows fatty infiltration pattern with no focal lesion on noncontrast imaging. Spleen and pancre as are unremarkable. No gallbladder or biliary tree abnormality identified. Gallstones can be occult. No adrenal abnormality. No suspicious bowel findings. No mass or bulky lymphadenopathy. Fat filled bilateral inguinal hernias are present. No free air, amado e fluid or inflammatory stranding. No significant bony abnormality. IMPRESSION: No hydronephrosis or obstructing calculus. Minimal stranding or edema along the course of each ureter. Ureteritis and pyelonephritis are not exc luded in the absence of contrast. Urinary bladder is tightly contracted. No bladder calculus. The bladder wall thickening seen January 26 is not appreciated on the current examination. Fatty infiltration of the liver.
[2018-02-19 13:29] LABS: Urine Blood 3+ (NEG); Urine Glucose 2+ (NEG); Urine Protein 2+ (NEG); Urine Specific Gravity 1.025 (1.005-1.030)
[2018-02-19 13:31] LABS: Urine Bacteria 20-50 /HPF (NONE SEEN); Urine Culture Reflex Order REFLEXED; Urine RBC >50 /HPF (NONE SEEN)
[2018-02-19] MEDS ORDERED: KETOROLAC 30 MG/ML INJ ONE (13:33)
--- NOTE | 2018-02-19 13:45 | EDPHYS ---
Physician Documentation [facility] Name: Enmanuel Jones Age: 52 yrs Sex: Male : 1965 Arrival Date: 02/19/2018 Time: 09:57 Bed 18 Private MD: ED Physician Jung Moreland HPI: 02/19 11:20 This 52 yrs old Male presents to ER via Ambulatory with complaints of cp Abdominal Pain. 11:20 The patient presents with abdominal pain in the lower abdomen, suprapubic area. cp 11:20 Onset: The symptoms/episode began/occurred 3 day(s) ago. cp 11:20 The symptoms radiate to both flanks. Associated signs and symptoms: Pertinent cp positives: nausea, vomiting, Pertinent negatives: anorexia, blood in stools, chest pain, constipation, diarrhea, fever, shortness of breath, testicular pain, active vomiting. 11:20 The symptoms are described as pressure. cp 11:20 Modifying factors: the symptoms are aggravated by movement, pressure. Severity of pain: cp in the emergency department the pain is actually worse moderately. Historical: - Allergies: 10:03 No Known Allergies; hj - Home Meds: 10:03 Amiodarone Oral [Active]; aspirin 81 mg Oral chew 1 tab once daily [Active]; hj atorvastatin 80 mg Oral tab 1 tab once daily [Active]; carvedilol 12.5 mg Oral tab 1 tab 2 times per day [Active]; Jardiance Oral [Active]; losartan 100 mg Oral tab 1 tab once daily [Active]; metformin 500 mg Oral Tb24 1 tab once daily [Active]; victoza [Active]; - PMHx: 10:03 Diabetes - NIDDM; Hyperlipidemia; Hypertension; Myocardial infarction; Pneumonia; hj - PSHx: 10:03 None; hj - Immunization history:: Adult Immunizations up to date. - Social history:: Smoking status: Patient/guardian denies using tobacco. ROS: 11:30 Eyes: Negative for injury, pain, redness, and discharge. cp 11:30 Constitutional: Positive for chills, Negative for fever, poor PO intake. cp 11:30 ENT: Negative for drainage from ear(s), ear pain, sore throat, difficulty swallowing, cp difficulty handling secretions. 11:30 Cardiovascular: Negative for chest pain, edema, palpitations. 11:30 Respiratory: Negative for cough, shortness of breath, wheezing. 11:30 Abdomen/GI: Positive for abdominal pain, nausea, vomiting, of the right lower quadrant and left lower quadrant, Negative for diarrhea, constipation. 11:30 Back: Positive for flank pain, bilaterally. 11:30 : Negative for difficulty urinating, bladder incontinence, testicular pain 11:30 Skin: Negative for cellulitis, rash. 11:30 Neuro: Negative for altered mental status, headache, weakness. 11:30 All other systems are negative. Exam: 11:33 Constitutional: The patient appears in no acute distress, alert, awake, cp non-diaphoretic, non-toxic, well developed, well nourished, obese, uncomfortable. 11:33 Head/Face: Normocephalic, atraumatic. Eyes: Pupils equal round and reactive to light, cp extra-ocular motions intact. Lids and lashes normal. Conjunctiva and sclera are non-icteric and not injected. Cornea within normal limits. Periorbital areas with no swelling, redness, or edema. ENT: Nares patent. No nasal discharge, no septal abnormalities noted. Tympanic membranes are normal and external auditory canals are clear. Oropharynx with no redness, swelling, or masses, exudates, or evidence of obstruction, uvula midline. Mucous membranes moist. Neck: Trachea midline, no thyromegaly or masses palpated, and no cervical lymphadenopathy. Supple, full range of motion without nuchal rigidity, or vertebral point tenderness. No Meningismus. Chest/axilla: Normal chest wall appearance and motion. Nontender with no deformity. No lesions are appreciated. 11:33 Cardiovascular: Rate: normal, Rhythm: regular, Pulses: Pulses are 2+ in right radial artery and left radial artery. Heart sounds: murmur, not appreciated, Edema: is not appreciated, JVD: is not appreciated. 11:33 Respiratory: the patient does not display signs of respiratory distress, Respirations: normal, no use of accessory muscles, no retractions, no splinting, no tachypnea, labored breathing, is not present, Breath sounds: are clear throughout, no decreased breath sounds, no stridor, no wheezing. 11:33 Abdomen/GI: Inspection: obese Bowel sounds: active, all quadrants, Palpation: soft, in all quadrants, moderate abdominal tenderness, in the right lower quadrant and left lower quadrant, rebound tenderness, is not appreciated. 11:33 Back: CVA tenderness, that is moderate, is noted bilaterally. 11:33 Skin: cellulitis, is not appreciated, no rash present. 11:33 Neuro: Orientation: to person, place \T\ time. Mentation: is normal, Cerebellar function: is grossly normal, Motor: moves all fours, strength is normal, Sensation: no obvious gross deficits. Vital Signs: 10:04 BP 145 / 95; Pulse 78; Resp 18; Temp 98.3(TE); Pulse Ox 100% on R/A; Weight 122.02 kg; hj Height 5 ft. 8 in. (172.72 cm); Pain 5/10; 12:20 BP 148 / 104; Pulse 86; Resp 18; Pulse Ox 99% on R/A; Pain 8/10; em 14:46 BP 126 / 74; Pulse 71; Resp 19; Temp 98.2; Pulse Ox 100% on R/A; la1 10:04 Body Mass Index 40.90 (122.02 kg, 172.72 cm) MDM: 11:09 Patient medically screened. cp 11:30 Differential diagnosis: cholecystitis, Cholelithiasis, diverticulitis, gastritis, cp pancreatitis, Prostatitis, Ureterolithiasis, urinary tract infection. 13:43 Data reviewed: vital signs, nurses notes, lab test result(s), radiologic studies, CT cp scan. Counseling: I had a detailed discussion with the patient and/or guardian regarding: the historical points, exam findings, and any diagnostic results supporting the discharge/admit diagnosis, lab results, radiology results, the need for outpatient follow up, a urologist. 13:44 Response to treatment: the patient's symptoms have markedly improved after treatment, cp and as a result, I will discharge patient. 02/19 11:15 Order name: Amylase, Serum; Complete Time: 12:29 cp 02/19 11:15 Order name: Basic Metabolic Panel; Complete Time: 12:29 cp 02/19 12:29 Interpretation: Normal except: GLUC 148; GFR 80. cp 02/19 11:15 Order name: CBC with Diff; Complete Time: 11:41 cp 02/19 11:42 Interpretation: Normal except: RBC 5.78; HCT 50.9. cp 02/19 11:15 Order name: Creatinine for Radiology; Complete Time: 12:29 cp 02/19 11:15 Order name: Hepatic Function; Complete Time: 12:29 cp 02/19 11:15 Order name: Lipase; Complete Time: 12:29 cp 02/19 11:15 Order name: Urine Microscopic Only; Complete Time: 13:37 cp 02/19 13:37 Interpretation: Normal except: UWBC >50; URBC >50; UBACT 20-50. cp 02/19 11:15 Order name: Ckmb; Complete Time: 12:29 cp 02/19 11:15 Order name: CK; Complete Time: 12:29 cp 02/19 11:15 Order name: Magnesium; Complete Time: 12:29 cp 02/19 11:46 Order name: CT Stone Protocol; Complete Time: 12:29 cp 02/19 12:59 Order name: Urine Dipstick--Ancillary (enter results) ag 02/19 12:59 Order name: Urine Dipstick-Ancillary; Complete Time: 13:37 EDMS 02/19 13:32 Order name: Urine Culture EDME 02/19 11:15 Order name: IV Saline Lock; Complete Time: 11:28 cp 02/19 11:15 Order name: Labs collected and sent; Complete Time: 11:28 cp 02/19 11:15 Order name: Urine Dipstick-Ancillary (obtain specimen); Complete Time: 11:28 cp Administered Medications: 11:41 Drug: morphine 4 mg Route: IVP; Site: right antecubital; la1 13:22 Follow up: Response: No adverse reaction em 11:41 Drug: Zofran 4 mg Route: IVP; Site: right antecubital; la1 13:22 Follow up: Response: No adverse reaction em 11:49 Drug: NS 0.9% 500 ml Route: IV; Rate: bolus; Site: right antecubital; em 13:23 Follow up: IV Status: Completed infusion; IV Intake: 500ml em 13:22 Drug: NS 0.9% 1000 ml Route: IV; Rate: 125 ml/hr; Site: right antecubital; em 14:47 Follow up: IV Status: Order to discontinue infusion la1 13:58 Drug: TORadol 30 mg Route: IVP; Site: right antecubital; ss 14:47 Follow up: Response: No adverse reaction; Pain is decreased la1 14:01 Drug: Rocephin - (cefTRIAXone) 2 grams Route: IVPB; Infused Over: 30 mins; Site: right ss antecubital; 14:47 Follow up: IV Status: Completed infusion la1 Disposition: 16:23 Co-signature as Attending Physician, Jung Moreland MD I agree with the assessment and kdr plan of care. Disposition: 02/19/18 13:44 Discharged to Home. Impression: Cystitis, unspecified. - Condition is Stable. - Discharge Instructions: Urinary Tract Infection. - Prescriptions for Tylenol- Codeine #3 300-30 mg Oral Tablet - take 2 tablet by ORAL route every 6 hours As needed; 30 tablet. Zofran 4 mg Oral Tablet - take 1 tablet by ORAL route every 12 hours As needed; 20 tablet. Cipro 500 mg Oral Tablet - take 1 tablet by ORAL route every 12 hours for 10 days; 20 tablet. - Medication Reconciliation Form, Thank You Letter, Antibiotic Education, Prescription Opioid Use form. - Follow up: Pedro Maravilla MD; When: 2 - 3 days; Reason: Recheck today's complaints. - Problem is new. - Symptoms have improved. Signatures: Dispatcher [employer] EDMS Jung Moreland MD MD kdr Russ Mane, TEST PULLER TEST PULLER em Renee Zarate RN RN ss Jeffery Kemp RN RN la1 Chris Mckeon RN RN Jamal Franco PA PA cp Corrections: (The following items were deleted from the chart) 22:26 11:30 Constitutional: Negative for body aches, fever, poor PO intake, cp cp 02/20 09:04 02/19 13:45 Response to treatment: the patient's symptoms have markedly improved after cp treatment, and as a result, I will discharge patient, cp
--- NOTE | 2018-02-19 13:45 | ER ---
Nurse's Notes [facility] Name: Enmanuel Jones Age: 52 yrs Sex: Male : 1965 Arrival Date: 02/19/2018 Time: 09:57 Bed 18 Private MD: Diagnosis: Cystitis, unspecified Presentation: 02/19 10:01 Presenting complaint: Patient states: "i have pain on my lower abdomen that moves all hj the way to the back that started 3 days ago; reports nausea and vomiting, reports chills; hx of kidney stones;. Transition of care: patient was not received from another setting of care. Onset of symptoms was February 19, 2018. Care prior to arrival: None. 10:01 Method Of Arrival: Ambulatory 10:01 Acuity: BELLA 3 hj Triage Assessment: 10:03 General: Appears in no apparent distress. uncomfortable, Behavior is calm, cooperative, hj appropriate for age. Pain: Complains of pain in suprapubic area Pain radiates to left low back and right low back. GI: Reports lower abdominal pain, nausea, vomiting. Historical: - Allergies: 10:03 No Known Allergies; hj - Home Meds: 10:03 Amiodarone Oral [Active]; aspirin 81 mg Oral chew 1 tab once daily [Active]; hj atorvastatin 80 mg Oral tab 1 tab once daily [Active]; carvedilol 12.5 mg Oral tab 1 tab 2 times per day [Active]; Jardiance Oral [Active]; losartan 100 mg Oral tab 1 tab once daily [Active]; metformin 500 mg Oral Tb24 1 tab once daily [Active]; victoza [Active]; - PMHx: 10:03 Diabetes - NIDDM; Hyperlipidemia; Hypertension; Myocardial infarction; Pneumonia; hj - PSHx: 10:03 None; hj - Immunization history:: Adult Immunizations up to date. - Social history:: Smoking status: Patient/guardian denies using tobacco. Screenin:53 Abuse screen: Denies threats or abuse. Nutritional screening: No deficits noted. em Tuberculosis screening: No symptoms or risk factors identified. Fall Risk None identified. Assessment: 10:04 GI: Bowel sounds present X 4 quads. Abd is soft Abdomen is tender to palpation. hj 11:33 General: Appears in no apparent distress. uncomfortable, Behavior is calm, cooperative. em Pain: Complains of pain in suprapubic area Pain currently is 8 out of 10 on a pain scale. Quality of pain is described as pressure. Neuro: Level of Consciousness is awake, alert, obeys commands, Oriented to person, place, time, situation. Cardiovascular: Capillary refill < 3 seconds Patient's skin is warm and dry. Respiratory: Airway is patent Respiratory effort is even, unlabored, Respiratory pattern is regular, symmetrical. GI: Abdomen is round non-distended, Bowel sounds present X 4 quads. Abd is soft X 4 quads Abdomen is tender to palpation X 4 quads. Reports nausea, vomiting. : Reports burning with urination, since 3 days. EENT: No signs and/or symptoms were reported regarding the EENT system. Derm: Skin is intact, Skin is pink, warm \\T\\ dry. Musculoskeletal: Range of motion: intact in all extremities. 11:40 General: The previous assessment is accurate, call light remains within reach. . ss 12:22 Reassessment: Patient appears in no apparent distress at this time. Patient and/or em family updated on plan of care and expected duration. Pain level reassessed. Patient is alert, oriented x 3, equal unlabored respirations, skin warm/dry/pink. Patient states feeling better. 13:48 Reassessment: Patient appears in no apparent distress at this time. Patient and/or em family updated on plan of care and expected duration. Pain level reassessed. Patient is alert, oriented x 3, equal unlabored respirations, skin warm/dry/pink. Patient states feeling better. Patient states symptoms have improved. Vital Signs: 10:04 BP 145 / 95; Pulse 78; Resp 18; Temp 98.3(TE); Pulse Ox 100% on R/A; Weight 122.02 kg; Height 5 ft. 8 in. (172.72 cm); Pain 5/10; 12:20 BP 148 / 104; Pulse 86; Resp 18; Pulse Ox 99% on R/A; Pain 8/10; em 14:46 BP 126 / 74; Pulse 71; Resp 19; Temp 98.2; Pulse Ox 100% on R/A; la1 10:04 Body Mass Index 40.90 (122.02 kg, 172.72 cm) ED Course: 09:57 Patient arrived in ED. tw3 10:02 Triage completed. hj 10:04 Arm band placed on right wrist. hj 11:00 Jamal Silver PA is PHCP. cp 11:00 Jung Moreland MD is Attending Physician. cp 11:24 Russ Mane LVN is Primary Nurse. em 11:27 Initial lab(s) drawn, by me, sent to lab. Urine collected: clean catch specimen, sriram ms colored. Inserted saline lock: 20 gauge in right antecubital area, using aseptic technique. Blood collected. 11:53 Patient has correct armband on for positive identification. Bed in low position. Call em light in reach. Side rails up X2. 11:53 No provider procedures requiring assistance completed. em 12:02 CT completed. Patient moved to CT via wheelchair. Patient moved back from CT. sw 12:03 CT Stone Protocol In Process Unspecified. EDMS 13:44 Pedro Maravilla MD is Referral Physician. cp 14:47 IV discontinued, intact, bleeding controlled, No redness/swelling at site. Pressure la1 dressing applied. Administered Medications: 11:41 Drug: morphine 4 mg Route: IVP; Site: right antecubital; la1 13:22 Follow up: Response: No adverse reaction em 11:41 Drug: Zofran 4 mg Route: IVP; Site: right antecubital; la1 13:22 Follow up: Response: No adverse reaction em 11:49 Drug: NS 0.9% 500 ml Route: IV; Rate: bolus; Site: right antecubital; em 13:23 Follow up: IV Status: Completed infusion; IV Intake: 500ml em 13:22 Drug: NS 0.9% 1000 ml Route: IV; Rate: 125 ml/hr; Site: right antecubital; em 14:47 Follow up: IV Status: Order to discontinue infusion la1 13:58 Drug: TORadol 30 mg Route: IVP; Site: right antecubital; ss 14:47 Follow up: Response: No adverse reaction; Pain is decreased la1 14:01 Drug: Rocephin - (cefTRIAXone) 2 grams Route: IVPB; Infused Over: 30 mins; Site: right ss antecubital; 14:47 Follow up: IV Status: Completed infusion la1 Intake: 13:23 IV: 500ml; Total: 500ml. em Outcome: 13:44 Discharge ordered by . cp 14:47 Discharged to home ambulatory. la1 14:47 Condition: stable 14:47 Discharge instructions given to patient, Instructed on discharge instructions, follow up and referral plans. medication usage, Demonstrated understanding of instructions, follow-up care, medications, Prescriptions given X 3. 14:48 Patient left the ED. la1 Addendum: 02/22/2018 08:16 Addendum: Culture Results: Positive urine culture. No further action required. Bacteria i w sensitive to prescribed antibiotic. Signatures: Dispatcher [employer] EDMS Russ Mane, FITNESS SPECIALIST FITNESS SPECIALIST em Bethanie Carbajal, RN RN Alvina Somers ms, Shelby, RN RN ss Attema, Lee, RN RN la1 Genny Cortes Henry RN RN Jamal Franco PA PA cp Wade, Krystal tw3 Corrections: (The following items were deleted from the chart) 02/19 10:05 10:04 Pulse 78bpm; Resp 18bpm; Pulse Ox 100% RA; Temp 98.3F Temporal; 122.02 kg; Height hj 5 ft. 8 in.; BMI: 40.9; Pain 5/10; hj
[2018-02-19] MEDS ORDERED: CEFTRIAXONE/SWI 1gm 1 GM/10 ML SYR ONE (13:58)
[2018-02-19 14:57] VITALS: O2SAT 100
[2018-02-19 14:58] VITALS: BP 126/74; TEMP 98.2
== END 2018-02-19 14:48 | disposition home or self-care (01) ==
LOC: ER 09:55
DX: N30.90 Cystitis, unspecified without hematuria (principal); I10 Essential (primary) hypertension; E11.9 Type 2 diabetes mellitus without complications; E78.5 Hyperlipidemia, unspecified; I25.2 Old myocardial infarction; Z79.82 Long term (current) use of aspirin
CPT/HCPCS: 36415; 74176; 76377; 80048; 80076; 81003; 81015; 82150; 82550; 82553; 83690; 83735; 85025; 87077; 87086; 87088; 87186; 96361; 96365; 96375; 99284; J0696; J2405; J7030

== ENCOUNTER 2018-10-19 17:07 | Emergency (ER) | payer BC ==
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
[2018-10-19] MEDS ORDERED: IBUPROFEN 400 MG TAB ONE (18:48)
[2018-10-19 18:58] VITALS: TEMP 98.2
[2018-10-19 19:00] VITALS: O2SAT 98
[2018-10-19 19:01] VITALS: BP 116/82
== END 2018-10-19 18:49 | disposition home or self-care (01) ==
LOC: ER 17:07
DX: R20.2 Paresthesia of skin (principal); V49.40XA Driver injured in collision with unspecified motor vehicles in traffic accident, initial encounter; Z79.82 Long term (current) use of aspirin; I10 Essential (primary) hypertension; I25.2 Old myocardial infarction; E11.9 Type 2 diabetes mellitus without complications; E78.5 Hyperlipidemia, unspecified
CPT/HCPCS: 72125; 99284

== ENCOUNTER 2020-10-06 22:09 | Emergency (ER) | payer BC ==
--- OUTSIDE RECORDS SUMMARY | 2020-10-06 22:11 | XMS REPORT | Continuity of Care Document ---
:1965 Author Organization [facility] t Address [address] [place] [address] Care Team Providers Name Role Phone Lab, [facility] Ju[place] I Attending Clinician Unavailable Jose Luis RODRÍGUEZ Attending Clinician Problems This patient has no known problems. Allergies, Adverse Reactions, Alerts This patient has no known allergies or adverse reactions. Medications This patient has no known medications. Procedures This patient has no known procedures. Encounters Start End Encounter Admission Attending Care Care Encounter Source Date/Time Date/Time Type Type Clinicians Facility Department ID 2020-07-21 2020-07-21 Laboratory Lab, [facility] [id number] 12:51:37 13:11:37 Only [facility] [place] I [facility] [id number] [place] [id number] Professio [phone] [address]al [address] One 2020-04-21 2020-04-21 Patient FRANCINE Amaya [id number] 00:00:00 00:00:00 Secure Msg Rebecca [place] [id number] [place] [id number] Professio [phone] [facility] 220 Building 2020-04-08 2020-04-08 Patient Jose Luis RUST [id number] 00:00:00 00:00:00 Secure Msg Rebecca Rivera [id number] [place] [id number] Professio [phone] [facility] 220 Building 2020-04-07 2020-04-07 Office FRANCINE Amaya [id number] 14:13:22 15:56:05 Visit Rebecca Rivera [id number] [place] [id number] Professannabelle [phone] nal 220 Building Results This patient has no known results.
--- OUTSIDE RECORDS SUMMARY | 2020-10-06 22:11 | XMS REPORT | Summary of Care ---
:1965 Author Organization [facility] Address [address] [place] [id number] Care Team Providers Name Role Phone Omar Puga Primary Care Provider Reason for Visit Reason Comments Exposure Encounter Details Date Type Department Care Team Description 07/21/2020 Laboratory Only [facility] Family RoseliabryannaRom, SHADOWGRAPH OPERATOR [address] [place] [id number] Suspected Covid-19 Medicine - [facility] Adc Fam Pob I Virus Infection [address] [place] [address] (Primary D x) [place] [address] Allergies No Known Allergiesdocumented as of this encounter (statuses as of 07/21/2020) Medications Medication Sig Dispensed Refills Start Date End Date Status losartan 100 mg tablet 0 08/29/2018 Active atorvastatin 80 mg 0 07/14/2018 Active tablet carvedilol 12.5 mg 0 07/14/2018 Active tablet SYNJARDY XR 12.5-1,000 0 07/13/2018 Active mg TBph liraglutide 0.6 mg/0.1 inject 1.8 mg 9 mL 5 04/07/2020 Active mL (18 mg/3 mL) under the skin injectionIndications: daily. Class 2 severe obesity with serious comorbidity and body mass index (BMI) of 39.0 to 39.9 in adult, unspecified obesity type Insulin [place], Use as directed 100 Each 3 04/07/2020 Active Disposable, (ADVOCATE PEN NEEDLE) 31 gauge x 5/16" NdleIndications: Type 2 diabetes mellitus with hyperglycemia, without long-term current use of insulin documented as of this encounter (statuses as of 07/21/2020) Active Problems Not on filedocumented as of this encounter (statuses as of 07/21/2020) Social History Tobacco Use Types Packs/Day Years Used Date Never Smoker Sex Assigned at Date Recorded Not on file COVID-19 Exposure Response Date Recorded In the last month, have you been in contact with Yes 07/21/2020 1:13 PM CDT someone who was confirmed or suspected to have Coronavirus / COVID-19? documented as of this encounter Last Filed Vital Signs Not on filedocumented in this encounter Nursing Notes Janene Dolan MA - 07/21/2020 1:00 PM CDTEnmanuel Jones is a 54 year old male here for COVID Screening with a Nasopharyngeal Swab All droplet and contact precautions taken with appropriate PPE worn while interacting with patient. ? Goggles ? N95 Mask ? Gloves ? Gown RR 14 Pulse 88 Ox 97% Patient educated on plan of care for visit, swabbing technique, risks and benefits of test and length of time to receive results. Verbal consent obtained to perform test. CDC Fact Sheet for Patients nCoV Diagnostic Panel dated 01/20/2020 and Factsheet What to Do if Sick with COVID 19 12/31/19 provided. Bilate nares swabbed during COVID19 nasopharyngeal swab. Patient swabbed per appropriate nasopharyngeal technique, and patient tolerated well. Patient was discharged from the testing clinic in stable condition. JANENE DOLAN MA 07/21/2020 1:13 PM documented in this encounter Plan of Treatment Date Type Specialty Care Team Description 08/11/2020 Office Visit Endocrinology Diabetes & [facility] Rebecca davis MD Metabolism [address] [place] [address] [phone] Name Type Priority Associated Diagnoses Order S chedule COVID-19 (PCR MOLECULAR LAB Routine Suspected Covid-1 9 Virus Expected: 07/21/2020, TESTING) Infection Expires: 2020 Health Maintenance Due Date Last Done Comments HEPATITIS C (HCV) SCREEN 1965 EYE EXAM 1974 URINE MICROALBUMIN 1974 Depression Screening 1976 DTaP,Tdap,and Td Vaccines (1 - 1983 Tdap) COLON CANCER SCREENING ANNUAL 2014 FIT/FOBT COLON CANCER SCREENING FIT DNA 2014 EVERY 3 YEARS COLON CANCER SCREENING 2014 SIGMOIDOSCOPY EVERY 5 YEARS COLONOSCOPY 2014 Colorectal Cancer Screening 2014 Zoster Recombinant Vaccine 2014 (SHINGRIX) (1 of 2) INFLUENZA VACCINE (#1) 2020 HgA1C 10/07/2020 04/07/2020 CREATININE (SERUM) 04/07/2021 04/07/2020 FOOT EXAM 04/07/2021 04/07/2020, 04/07/2020 LDL-C 04/07/2021 04/07/2020 PNEUMOCOCCAL 0-64 YEARS Aged Out No longe r eligible based COMBINED SERIES on patient's age to complete this to [facility] documented as of this encounter Results Not on filedocumented in this encounter Visit Diagnoses Diagnosis Suspected Covid-19 Virus Infection - [facility] documented in this encounter Additional Health Concerns Infection Onset Date Last Indicated Resolved Time COVID-19 Rule Out 07/21/2020 07/21/2020 documented as of this encounter Insurance Payer Benefit Plan Subscriber ID Effective Dates Phone Address Type / Group [facility] [id number] 2017-Madelyn [phone] PPO/POS [place] - OUT OF t [id number] [place] [address] documented as of this encounter
[2020-10-06] MEDS ORDERED: ACETAMINOPHEN 500 MG TAB ONE (22:56)
[2020-10-06] MEDS ORDERED: NA CHLORIDE 0.9% 1,000 ML ONE (22:56)
[2020-10-06 23:07] LABS: Absolute Lymphocytes (CBC) 0.8 K/uL (0.7-4.9); Basophils % 0.7 % (0-1.3); Lymphocytes % 12.6 % (15.3-44.8); MPV 8.8 fL (7.6-11.3); RBC Red Blood Cell Count 5.63 M/uL (4.33-5.43)
[2020-10-06 23:11] LABS: Protime INR 0.93
[2020-10-06 23:19] LABS: Urine Blood 1+ (NEG); Urine Glucose NEGATIVE (NEG); Urine Protein NEGATIVE (NEG)
[2020-10-06 23:27] LABS: ALT/SGPT 131 U/L (12-78); AST/SGOT 88 U/L (15-37); Albumin 3.6 g/dL (3.4-5.0); Alkaline Phosphatase 141 U/L (45-117); BUN Blood Urea Nitrogen 16 mg/dL (7-18); Bicarbonate 22 mmol/L (21-32); Bilirubin Direct 0.2 mg/dL (0-0.2); Bilirubin Total 0.7 mg/dL (0.2-1.0); CKMB Creatine Kinase MB < 1.0 ng/mL (0.3-3.6); Creatine Phosphokinase 118 U/L (39-308); Glucose Level 325 mg/dL (74-106); Potassium 4.1 mmol/L (3.5-5.1); Protein, Total 7.2 g/dL (6.4-8.2); Sodium Level 137 mmol/L (136-145); Troponin (Emerg Dept Use Only) < 0.02 ng/mL (0.0-0.045)
[2020-10-06 23:28] LABS: Amylase 45 U/L (25-115); Lipase 242 U/L (73-393)
[2020-10-06] MEDS ORDERED: IBUPROFEN 400 MG TAB ONE (23:29)
[2020-10-07] MEDS ORDERED: CEFTRIAXONE/SWI 1gm 1 GM/10 ML SYR ONE (00:09)
[2020-10-07] MEDS ORDERED: AZITHROMYCIN 500 MG INJ IVPB ONE (00:09)
[2020-10-07] MEDS ORDERED: dexAMETHasone 10 MG/ML VIAL ONE (00:09)
[2020-10-07] MEDS ORDERED: NA CHLORIDE 0.9% 250 ML ONE (00:09)
[2020-10-07 01:10] LABS: Urine Bacteria <20 /HPF (NONE SEEN); Urine RBC <5 /HPF (NONE SEEN)
--- NOTE | 2020-10-07 02:17 | ER ---
Nurse's Notes [facility] Name: Enmanuel Jones Age: 55 yrs Sex: Male : 1965 Arrival Date: 10/06/2020 Time: 22:13 Bed 8 Private MD: Diagnosis: Pneumonia due to other specified infectious organisms Presentation: 10/06 22:24 Chief complaint: Patient states: chills, bodyache, sore throat started today 7PM. rr5 Coronavirus screen: Client denies travel out of the [place] in the last 14 days. chills, shaking with chills, shortness of breath, sore throat, Client presents with at least one sign or symptom that may indicate coronavirus-19. Standard/surgical mask placed on the client. Provider contacted for isolation considerations. Ebola Screen: Patient negative for fever greater than or equal to 101.5 degrees Fahrenheit, and additional compatible Ebola Virus Disease symptoms Patient denies exposure to infectious person. Patient denies travel to an Ebola-affected area in the 21 days before illness onset. Initial Sepsis Screen: Does the patient meet any 2 criteria? RR > 20 per min. Temp <36.0*C (96.8*F)) or > 38.3*C (100.9*F). HR > 90 bpm. Does the patient have a suspected source of infection? Yes: Productive cough/pneumonia. Risk Assessment: Do you want to hurt yourself or someone else? Patient reports no desire to harm self or others. Onset of symptoms was October 06, 2020. 22:24 Method Of Arrival: Wheelchair rr5 22:24 Acuity: BELLA 2 rr5 Historical: - Allergies: 22:27 NKA; rr5 - PMHx: 22:27 Diabetes - NIDDM; Hyperlipidemia; Hypertension; Myocardial infarction; Pneumonia; rr5 ADD/ADHD; - Immunization history:: Adult Immunizations up to date. - Social history:: Smoking status: unknown Patient uses alcohol, occasionally. Patient/guardian denies using street drugs, Patient/guardian denies using alcohol, The patient lives with family. - Family history:: not pertinent. Screenin:27 Abuse screen: Denies threats or abuse. Denies injuries from another. Nutritional rr5 screening: No deficits noted. Tuberculosis screening: No symptoms or risk factors identified. Fall Risk IV access (20 points). Total Rosales Fall Scale indicates No Risk (0-24 pts). Assessment: 22:25 General: Appears in no apparent distress. uncomfortable, Behavior is calm, cooperative, rr5 appropriate for age, Reports chills for fever for feeling ill for fatigue for 0-12 hours. 22:25 Pain: Denies pain. Neuro: Level of Consciousness is awake, alert, obeys commands, rr5 Oriented to person, place, time, situation. Cardiovascular: Capillary refill < 3 seconds Patient's skin is warm and dry. Respiratory: Reports shortness of breath cough that is Airway is patent Respiratory effort is even, unlabored, Respiratory pattern is regular, symmetrical. GI: Abdomen is round non-distended. : No signs and/or symptoms were reported regarding the genitourinary system. EENT: No signs and/or symptoms were reported regarding the EENT system. Derm: Skin is intact, is healthy with good turgor, Skin temperature is warm. Musculoskeletal: Circulation, motion, and sensation intact. Capillary refill < 3 seconds. 23:30 Reassessment: Patient appears in no apparent distress at this time. Patient is alert, rr5 oriented x 3, equal unlabored respirations, skin warm/dry/pink. 10/07 00:20 Reassessment: Patient appears in no apparent distress at this time. snacks given with rr5 good appetite. 01:00 Reassessment: Patient appears in no apparent distress at this time. Patient is alert, rr5 oriented x 3, equal unlabored respirations, skin warm/dry/pink. Patient states feeling better. Patient states symptoms have improved. 02:30 Reassessment: Patient appears in no apparent distress at this time. Patient is alert, rr5 oriented x 3, equal unlabored respirations, skin warm/dry/pink. discharge instruction given and explained without complaints made Patient states feeling better. Patient states symptoms have improved. Vital Signs: 10/06 22:24 BP 106 / 89; Pulse 148; Resp 26; Temp 100.9; Pulse Ox 98% ; Weight 113.4 kg; Height 5 rr5 ft. 8 in. (172.72 cm); Pain 5/10; 23:30 BP 140 / 83; Pulse 110; Resp 24; Pulse Ox 98% ; rr5 10/07 00:35 BP 132 / 85; Pulse 106; Resp 20; Temp 99.8; Pulse Ox 100% ; rr5 01:30 BP 149 / 89; Pulse 95; Resp 18; Pulse Ox 98% ; rr5 02:30 BP 141 / 70; Pulse 89; Resp 16; Temp 98.9; Pulse Ox 99% ; rr5 10/06 22:24 Body Mass Index 38.01 (113.40 kg, 172.72 cm) rr5 ED Course: 10/06 22:13 Patient arrived in ED. bp1 22:19 Laura Hall MD is Attending Physician. ma2 22:23 Nhan Tomas, LB is Primary Nurse. rr5 22:25 Patient has correct armband on for positive identification. Placed in gown. Bed in low rr5 position. Call light in reach. cardiac monitor on. Pulse ox on. NIBP on. 22:26 Triage completed. rr5 22:27 Arm band placed on right wrist. rr5 22:49 Inserted saline lock: 20 gauge in right antecubital area, using aseptic technique. jb5 Blood collected. 22:50 Amylase, Serum Sent. jb5 22:50 Basic Metabolic Panel Sent. jb5 22:50 Blood Culture Adult (2) Sent. jb5 22:50 CBC with Diff Sent. jb5 22:50 Ckmb Sent. jb5 22:50 CPK Sent. jb5 22:50 Lactate Sent. jb5 22:50 LFT's Sent. jb5 22:51 Lipase Sent. jb5 22:51 Procalcitonin Sent. jb5 22:51 Protime (+inr) Sent. jb5 22:51 Ptt, Activated Sent. jb5 22:51 Troponin (emerg Dept Use Only) Sent. jb5 22:54 Chest Single View XRAY In Process Unspecified. EDMS 23:43 COVID swab sent to lab. Flu and/or RSV swab sent to lab. Strep swab sent to lab. rr5 10/07 00:59 Repeat lab(s) drawn. by ED staff, sent to lab. rr5 02:33 No provider procedures requiring assistance completed. IV discontinued, intact, rr5 bleeding controlled, No redness/swelling at site. Pressure dressing applied. Administered Medications: 10/06 22:49 Not Given (Physician Discretion): NS 0.9% (30 ml/kg) 30 ml/kg IV at bolus once; Sepsis wh Protocol 22:49 Drug: NS 0.9% 1000 ml Route: IV; Rate: 1 bolus; Site: right antecubital; 23:50 Follow up: Response: No adverse reaction; IV Status: Completed infusion; IV Intake: rr5 1000ml 23:23 Drug: Motrin 800 mg Route: PO; rr5 10/07 00:42 Follow up: Response: No adverse reaction; Temperature is decreased rr5 10/06 23:24 Not Given (Other Intervention Used): Tylenol 1000 mg PO once rr5 23:50 Drug: Decadron - Dexamethasone 10 mg Route: IVP; Site: right antecubital; rr5 10/07 00:43 Follow up: Response: No adverse reaction rr5 00:00 Drug: Rocephin 1 grams Route: IV; Rate: calculated rate; Site: right antecubital; rr5 00:30 Follow up: Response: No adverse reaction; IV Status: Completed infusion; IV Intake: 99rrxn2 00:30 Dru mg of (AZITHromycin 500 mg, NS 0.9% 250 ml) Route: IVPB; Infused Over: 1 hrs; rr5 Site: right antecubital; 01:30 Follow up: Response: No adverse reaction; IV Status: Completed infusion; IV Intake: rr5 250ml Intake: 10/06 23:50 IV: 1000ml; Total: 1000ml. rr5 12 00:30 IV: 10ml; Total: 1010ml. rr5 01:30 IV: 250ml; Total: 1260ml. rr5 Outcome: 02:16 Discharge ordered by . ma2 02:30 Discharged to home ambulatory, with family. rr5 02:30 Condition: stable 02:30 Discharge instructions given to patient, family, Instructed on discharge instructions, follow up and referral plans. medication usage, Demonstrated understanding of instructions, follow-up care, medications, Prescriptions given X 3. 02:32 Patient left the ED. rr5 Signatures: Dispatcher [employer] EDMS Aleida Padilla Winsy Laura Hall MD MD ma2 Nhan Tomas, RN RN rr5 Reshma [facility] Corrections: (The following items were deleted from the chart) 01:04 00:35 BP 132 / 85; Pulse 76bpm; Resp 20bpm; Pulse Ox 100%; Temp 99.8F; rr5 rr5
--- NOTE | 2020-10-07 02:17 | EDPHYS ---
Physician Documentation [facility] Name: Enmanuel Jones Age: 55 yrs Sex: Male : 1965 Arrival Date: 10/06/2020 Time: 22:13 Bed 8 Private MD: ED Physician Laura Hall HPI: 10/07 00:36 This 55 yrs old Male presents to ER via Wheelchair with complaints of Chills, ma2 Muscle Spasms. 00:36 Onset: The symptoms/episode began/occurred gradually, 1 day(s) ago. Severity of ma2 symptoms: At their worst the symptoms were moderate in the emergency department the symptoms are unchanged. The patient has not experienced similar symptoms in the past. Historical: - Allergies: 10/06 22:27 NKA; rr5 - PMHx: 22:27 Diabetes - NIDDM; Hyperlipidemia; Hypertension; Myocardial infarction; Pneumonia; rr5 ADD/ADHD; - Immunization history:: Adult Immunizations up to date. - Social history:: Smoking status: unknown Patient uses alcohol, occasionally. Patient/guardian denies using street drugs, Patient/guardian denies using alcohol, The patient lives with family. - Family history:: not pertinent. ROS: 10/07 00:36 Constitutional: Negative for fever, chills, and weight loss. ma2 All other systems are negative. Exam: 00:36 Constitutional: This is a well developed, well nourished patient who is awake, alert, ma2 and in no acute distress. Head/Face: Normocephalic, atraumatic. Eyes: Pupils equal round and reactive to light, extra-ocular motions intact. Lids and lashes normal. Conjunctiva and sclera are non-icteric and not injected. Cornea within normal limits. Periorbital areas with no swelling, redness, or edema. ENT: Nares patent. No nasal discharge, no septal abnormalities noted. Tympanic membranes are normal and external auditory canals are clear. Oropharynx with no redness, swelling, or masses, exudates, or evidence of obstruction, uvula midline. Mucous membranes moist. Neck: Trachea midline, no thyromegaly or masses palpated, and no cervical lymphadenopathy. Supple, full range of motion without nuchal rigidity, or vertebral point tenderness. No Meningismus. Chest/axilla: Normal chest wall appearance and motion. Nontender with no deformity. No lesions are appreciated. Cardiovascular: Regular rate and rhythm with a normal S1 and S2. No gallops, murmurs, or rubs. Normal PMI, no JVD. No pulse deficits. Respiratory: Lungs have equal breath sounds bilaterally, clear to auscultation and percussion. No rales, rhonchi or wheezes noted. No increased work of breathing, no retractions or nasal flaring. Abdomen/GI: Soft, non-tender, with normal bowel sounds. No distension or tympany. No guarding or rebound. No evidence of tenderness throughout. Back: No spinal tenderness. No costovertebral tenderness. Full range of motion. MS/ Extremity: Pulses equal, no cyanosis. Neurovascular intact. Full, normal range of motion. Neuro: Awake and alert, GCS 15, oriented to person, place, time, and situation. Cranial nerves II-XII grossly intact. Motor strength 5/5 in all extremities. Sensory grossly intact. Cerebellar exam normal. Normal gait. Psych: Awake, alert, with orientation to person, place and time. Behavior, mood, and affect are within normal limits. Vital Signs: 10/06 22:24 BP 106 / 89; Pulse 148; Resp 26; Temp 100.9; Pulse Ox 98% ; Weight 113.4 kg; Height 5 rr5 ft. 8 in. (172.72 cm); Pain 5/10; 23:30 BP 140 / 83; Pulse 110; Resp 24; Pulse Ox 98% ; rr5 10/07 00:35 BP 132 / 85; Pulse 106; Resp 20; Temp 99.8; Pulse Ox 100% ; rr5 01:30 BP 149 / 89; Pulse 95; Resp 18; Pulse Ox 98% ; rr5 02:30 BP 141 / 70; Pulse 89; Resp 16; Temp 98.9; Pulse Ox 99% ; rr5 10/06 22:24 Body Mass Index 38.01 (113.40 kg, 172.72 cm) rr5 MDM: 10/06 22:19 Patient medically screened. [facility] 10/07 00:36 Differential Diagnosis sepsis, flu, covid. [facility] 02:11 Data reviewed: vital signs, nurses notes. Counseling: I had a detailed discussion with [facility] the patient and/or guardian regarding: the historical points, exam findings, and any diagnostic results supporting the discharge/admit diagnosis, the presence of at least one elevated blood pressure reading (>120/80) during this emergency department visit, the need for outpatient follow up. Response to treatment: the patient's symptoms have markedly improved after treatment. ED course: lab unremarkable, patient had mild elevated in lactate, however it was repeated and trended down to normal level, wbc wnl, it is likely that he had an inflammatory/infectious condition, hoever all workup is wnl in er including covid, flu, strep, ruine and blood work, except mild elevation in transaminases, he does not have abd pain, chest showing possible pneumonia however it is not read by radiologist yet as it is over night, patient does not have any cough or sob, he does not have any sympotms at this time and his generalize spasm all resolved, his vs are wnl now including hr and temp.. i explained to him that this could be an early pneumonia vs other early infectious condition, he will watch out for new symptoms and see his pcp and i gave return precaution to er.. will treat pneumonia with z-pack . 10/06 22:24 Order name: Amylase, Serum; Complete Time: 23:42 rr 10/06 22:24 Order name: Basic Metabolic Panel; Complete Time: 23:42 [facility] 10/06 22:24 Order name: Blood Culture Adult (2) [facility] 10/06 22:24 Order name: CBC with Diff; Complete Time: 23:42 [facility] 10/06 22:24 Order name: Ckmb; Complete Time: 23:42 [facility] 10/06 22:24 Order name: CPK; Complete Time: 23:42 [facility] 10/06 22:24 Order name: Lactate; Complete Time: 23:42 [facility] 10/06 22:24 Order name: LFT's; Complete Time: 23:42 [facility] 10/06 22:24 Order name: Lipase; Complete Time: 23:42 [facility] 10/06 22:24 Order name: Procalcitonin; Complete Time: 00:19 [facility] 10/06 22:24 Order name: Protime (+inr); Complete Time: 23:42 [facility] 10/06 22:24 Order name: Ptt, Activated; Complete Time: 23:42 [facility] 10/06 22:24 Order name: Troponin (emerg Dept Use Only); Complete Time: 23:42 rr5 10/06 22:24 Order name: Urine Microscopic Only; Complete Time: 01:17 rr5 10/06 22:24 Order name: Chest Single View XRAY rr5 10/06 22:34 Order name: Urine Dipstick--Ancillary (enter results); Complete Time: 23:42 mw2 10/06 22:50 Order name: Glucose, Ancillary Testing; Complete Time: 23:42 EDMS 10/06 23:25 Order name: Flu; Complete Time: 01:17 rr5 10/06 23:25 Order name: Strep; Complete Time: 01:17 rr5 10/07 00:41 Order name: Throat Culture EDMS 10/07 01:28 Order name: Lactate Sepsis 2 HR Follow-up; Complete Time: 01:55 EDMS 10/07 01:44 Order name: SARS-COV-2 RT PCR; Complete Time: 01:55 EDMS 10/06 22:24 Order name: Accucheck; Complete Time: 22:38 rr5 10/06 22:24 Order name: Cardiac monitoring; Complete Time: 22:38 rr5 10/06 22:24 Order name: EKG - Nurse/Tech; Complete Time: 22:38 rr5 10/06 22:24 Order name: IV Saline Lock - Large Bore; Complete Time: 22:38 rr5 10/06 22:24 Order name: Labs collected and sent; Complete Time: 22:39 rr5 10/06 22:24 Order name: O2 Per Protocol; Complete Time: 22:39 rr5 10/06 22:24 Order name: O2 Sat Monitoring; Complete Time: 22:39 rr5 10/06 22:24 Order name: Urine Dipstick-Ancillary (obtain specimen); Complete Time: 23:24 rr5 Administered Medications: 10/06 22:49 Not Given (Physician Discretion): NS 0.9% (30 ml/kg) 30 ml/kg IV at bolus once; Sepsis Protocol 22:49 Drug: NS 0.9% 1000 ml Route: IV; Rate: 1 bolus; Site: right antecubital; 23:50 Follow up: Response: No adverse reaction; IV Status: Completed infusion; IV Intake: rr5 1000ml 23:23 Drug: Motrin 800 mg Route: PO; rr5 10/07 00:42 Follow up: Response: No adverse reaction; Temperature is decreased rr5 10/06 23:24 Not Given (Other Intervention Used): Tylenol 1000 mg PO once rr5 23:50 Drug: Decadron - Dexamethasone 10 mg Route: IVP; Site: right antecubital; rr5 10/07 00:43 Follow up: Response: No adverse reaction rr5 00:00 Drug: Rocephin 1 grams Route: IV; Rate: calculated rate; Site: right antecubital; rr5 00:30 Follow up: Response: No adverse reaction; IV Status: Completed infusion; IV Intake: 18crfr7 00:30 Dru mg of (AZITHromycin 500 mg, NS 0.9% 250 ml) Route: IVPB; Infused Over: 1 hrs; rr5 Site: right antecubital; 01:30 Follow up: Response: No adverse reaction; IV Status: Completed infusion; IV Intake: rr5 250ml Disposition: 10/07/20 02:16 Discharged to Home. Impression: Pneumonia due to other specified infectious organisms. - Condition is Stable. - Discharge Instructions: Community-Acquired Pneumonia, Adult. - Prescriptions for Zithromax Z- Sidney 250 mg Oral Tablet - take 1 tablet by ORAL route as directed for 5 days Day 1 - take two (2) tablets one time. Day 2, 3, 4 , 5 take one (1) tablet once daily.; 6 tablet. Medrol (Sidney) 4 mg Oral Tablets, Dose Pack - take 1 tablet by ORAL route as directed - follow package instructions; 1 packet. Diclofenac Sodium 75 mg Oral Tablet Sustained Release - take 1 tablet by ORAL route 2 times per day; 30 tablet. - Medication Reconciliation Form, Thank You Letter, Antibiotic Education, Prescription Opioid Use, Family Work Release form. - Follow up: Private Physician; When: Tomorrow; Reason: Continuance of care. Signatures: Dispatcher [employer] [facility] Ayden Dumont Mohammad, MD MD ma2 Nhan Tomas RN RN rr5 Corrections: (The following items were deleted from the chart) 00:34 10/06 23:26 CORONAVIRUS+[email or web address].BRZ ordered. [facility] 10/07 02:32 02:16 10/07/2020 02:16 Discharged to Home. Impression: Pneumonia due to other specified rr5 infectious organisms. Condition is Stable. Prescriptions for Zithromax Z-Sidney 250 mg Oral Tablet - take 1 tablet by ORAL route as directed for 5 days Day 1 - take two (2) tablets one time. Day 2, 3, 4 , 5 take one (1) tablet once daily.; 6 tablet, Medrol (Sidney) 4 mg Oral Tablets, Dose Pack - take 1 tablet by ORAL route as directed - follow package instructions; 1 packet, Diclofenac Sodium 75 mg Oral Tablet Sustained Release - take 1 tablet by ORAL route 2 times per day; 30 tablet. and Forms are Medication Reconciliation Form, Thank You Letter, Antibiotic Education, Prescription Opioid Use. Follow up: Private Physician; When: Tomorrow; Reason: Continuance of care. ma2
[2020-10-07 02:47] VITALS: BP 132/85; TEMP 99.8; O2SAT 100
--- NOTE | 2020-10-07 07:21 | RAD REPORT ---
EXAM DESCRIPTION: [place] Single View10/06/2020 10:54 pm CLINICAL HISTORY: Fever COMPARISON: 2015 FINDINGS: The lungs appear clear of acute infiltrate. The heart is normal size IMPRESSION: No acute abnormalities displayed
--- NOTE | 2020-10-08 06:10 | EKG ---
Test Date: 2020-10-06 Test Time: 22:32:58 [employer] Sales Exec: MEASUREMENT RESULTS: Intervals: Rate: 134 MD: 150 QRSD: 88 QT: 294 QTc: 439 [place]: P: 50 MD: 150 QRS: 235 T: 30 INTERPRETIVE STATEMENTS: Sinus tachycardia Right ventricular hypertrophy Possible Lateral infarct, age undetermined Abnormal ECG Compared to ECG 05/15/2016 09:36:40 Right ventricular hypertrophy now present Myocardial infarct finding now present Sinus rhythm no longer present Left-axis deviation no longer present Electronically Signed On 10-08-20 06:09:02 READING TUTOR by Orlin Gardner
== END 2020-10-07 02:32 | disposition home or self-care (01) ==
LOC: ER 22:09
DX: J16.8 Pneumonia due to other specified infectious organisms (principal); Z20.828 Contact with and (suspected) exposure to other viral communicable diseases; I10 Essential (primary) hypertension
CPT/HCPCS: 93005; 87040 ×2; 87070; 85025; 80048; 36415 ×2; 82150; 82550; 85610; 82947; 80076; 87081; 83605 ×2; 85730; 84484; 82553; 83690; 84145; 87804 ×2; 71045; U0003; J7030; 81003; 81015; 96361; 96365; 96367; 96375; 99284

== ENCOUNTER 2020-12-31 04:53 | Emergency (ER) | payer BC ==
--- OUTSIDE RECORDS SUMMARY | 2020-12-31 04:56 | XMS REPORT | Continuity of Care Document ---
:1965 Author Organization [facility] t Address [address] [place] [address] Care Team Providers Name Role Phone Lab, [facility] [place] I Attending Clinician Unavailable [...] Facility Department ID 2020-07-21 2020-07-21 Laboratory Lab, [facility] [id number] 12:51:37 13:11:37 Only [facility] Ju[place]ino I [facility] [id number] [place] [id number] Professio [phone] [address] 2020-04-21 2020-04-21 Patient FRANCINE Amaya [id number] 00:00:00 00:00:00 Secure Msg Rebecca [place] [id number] [place] [id number] Professio [phone] [facility] [address] 2020-04-08 2020-04-08 Patient Jose Luis [facility] [id number] 00:00:00 00:00:00 Secure Msg Rebecca Rivera [id number] [place] [id number] Professio [phone] [facility] [address] 2020-04-07 2020-04-07 Office FRANCINE Amaya [id number] 14:13:22 15:56:05 Visit Rebecca Rivera [id number] [place] [id number] Professio [phone] [address] Building Results This patient has no known results.
[2020-12-31 06:39] LABS: Absolute Lymphocytes (CBC) 1.6 K/uL (0.7-4.9); Basophils % 1.1 % (0-1.3); Hematocrit 51.1 % (39.6-49.0); Lymphocytes % 27.9 % (15.3-44.8); MPV 8.8 fL (7.6-11.3); RBC Red Blood Cell Count 5.65 M/uL (4.33-5.43)
[2020-12-31 06:53] LABS: Albumin 3.7 g/dL (3.4-5.0); Bilirubin Direct 0.2 mg/dL (0-0.2); Bilirubin Total 0.6 mg/dL (0.2-1.0); Potassium 4.2 mmol/L (3.5-5.1); Protein, Total 7.2 g/dL (6.4-8.2)
--- NOTE | 2020-12-31 07:56 | RAD REPORT ---
EXAM DESCRIPTION: CT - Abdomen Pelvis W Contrast - 12/31/2020 7:20 am CLINICAL HISTORY: Abdominal pain COMPARISON: 2018 TECHNIQUE: Computed axial tomography of the abdomen pelvis was obtained. 100 cc Isovue-300 was admin istered intravenously. Oral contrast was not requested which limits evaluation of bowel. All CT scans are performed using dose optimization technique as appropriate and may include automated exposure control or mA/KV adjustment according to patient size. FINDINGS: Fatty liver Spleen, pancreas, adrenal and kidneys appear unremarkable. There is no evidence of diverticulitis. Normal appendix. Small bilateral inguinal hernias IMPRESSION: No acute abnormality is displayed.
--- NOTE | 2020-12-31 07:58 | ER ---
Nurse's Notes [facility] Name: Enmanuel Jones Age: 55 yrs Sex: Male : 1965 Arrival Date: 12/31/2020 Time: 04:58 Bed 6 Private MD: Diagnosis: Unspecified abdominal pain Presentation: 12/31 05:06 Chief complaint: Patient states: abdominal pain that started yesterday that radiates em into back, had nausea yesterday, denies fever. Coronavirus screen: Client denies travel out of the [place] in the last 14 days. Ebola Screen: Patient negative for fever greater than or equal to 101.5 degrees Fahrenheit, and additional compatible Ebola Virus Disease symptoms Patient denies exposure to infectious person. Patient denies travel to an Ebola-affected area in the 21 days before illness onset. No symptoms or risks identified at this time. Initial Sepsis Screen: Does the patient meet any 2 criteria? No. Patient's initial sepsis screen is negative. Does the patient have a suspected source of infection? No. Patient's initial sepsis screen is negative. Risk Assessment: Do you want to hurt yourself or someone else? Patient reports no desire to harm self or others. Onset of symptoms was December 31, 2020. 05:06 Method Of Arrival: Ambulatory em 05:06 Acuity: BELLA 3 em Historical: - Allergies: 05:09 NKA; em - Home Meds: 05:09 atorvastatin 80 mg Oral tab 1 tab once daily [Active]; carvedilol 12.5 mg Oral tab 1 em tab 2 times per day [Active]; losartan 100 mg Oral tab 1 tab once daily [Active]; Synjardy 12.5-500 mg oral tab 1 tab daily [Active]; - PMHx: 05:09 Diabetes - NIDDM; Hyperlipidemia; Hypertension; ADD/ADHD; Myocardial infarction; em Pneumonia; - PSHx: 05:09 None; em - Immunization history:: Adult Immunizations up to date. - Social history:: Smoking status: Patient denies any tobacco usage or history of. Screenin:09 Abuse screen: Denies threats or abuse. Nutritional screening: No deficits noted. em Tuberculosis screening: No symptoms or risk factors identified. Fall Risk None identified. Assessment: 05:10 General: Appears in no apparent distress. comfortable, Behavior is calm, cooperative, em appropriate for age, Denies fever. Pain: Complains of pain in abdomen Pain currently is 4 out of 10 on a pain scale. Pain began 1 day ago. Neuro: Level of Consciousness is awake, alert, obeys commands, Oriented to person, place, time, situation. Cardiovascular: Capillary refill < 3 seconds Patient's skin is warm and dry. Respiratory: Airway is patent Respiratory effort is even, unlabored, Respiratory pattern is regular, symmetrical. GI: Abdomen is round non-distended, Abd is soft and non tender X 4 quads. Reports nausea, Patient currently denies diarrhea, vomiting. : Denies burning with urination. Derm: Skin is intact, is healthy with good turgor, Skin is pink, warm \T\ dry. Musculoskeletal: Capillary refill < 3 seconds. 06:27 Reassessment: Patient appears in no apparent distress at this time. Patient and/or em family updated on plan of care and expected duration. Pain level reassessed. Patient is alert, oriented x 3, equal unlabored respirations, skin warm/dry/pink. Vital Signs: 05:06 BP 132 / 90; Pulse 64; Resp 18; Temp 97.8; Pulse Ox 99% on R/A; Weight 117.93 kg; em Height 5 ft. 8 in. (172.72 cm); Pain 4/10; 05:06 Body Mass Index 39.53 (117.93 kg, 172.72 cm) em ED Course: 04:58 Patient arrived in ED. am2 05:00 Russ Mane, LB is Primary Nurse. em 05:03 Stiven Cerrato MD is Attending Physician. tw4 05:08 Triage completed. em 05:09 Arm band placed on. em 05:09 Patient has correct armband on for positive identification. Bed in low position. Call em light in reach. Pulse ox on. NIBP on. 06:27 Initial lab(s) drawn, by me, sent to lab. Inserted saline lock: 22 gauge in right em antecubital area, using aseptic technique. Blood collected. 07:17 Attending Physician role handed off by Stiven Cerrato MD rn 07:17 Beto Wing MD is Attending Physician. rn 07:19 CT Abd/Pelvis - IV Contrast Only In Process Unspecified. EDMS 08:30 No provider procedures requiring assistance completed. IV discontinued, intact, iw bleeding controlled, No redness/swelling at site. Pressure dressing applied. Administered Medications: No medications were administered Outcome: 07:58 Discharge ordered by . rn 08:30 Discharged to home ambulatory. iw 08:30 Condition: good 08:30 Discharge instructions given to patient, Instructed on discharge instructions, follow up and referral plans. Demonstrated understanding of instructions, follow-up care. 08:30 Patient left the ED. iw Signatures: Dispatcher [employer] EDRuss Carmona RN RN em Williams, Irene, RN RN iw Beto Wing MD MD rn Moreno, Amanda am2 Stiven Cerrato MD MD tw4
--- NOTE | 2020-12-31 07:58 | EDPHYS ---
Physician Documentation [facility] Name: Enmanuel Jones Age: 55 yrs Sex: Male : 1965 Arrival Date: 12/31/2020 Time: 04:58 Bed 6 Private MD: ED Physician Beto Wing HPI: 12/31 06:59 This 55 yrs old Male presents to ER via Ambulatory with complaints of tw4 Abdominal Pain. 06:59 The patient presents with abdominal pain. Onset: The symptoms/episode began/occurred tw4 today. The symptoms do not radiate. Associated signs and symptoms: none. The symptoms are described as dull. Modifying factors: The symptoms are alleviated by nothing, the symptoms are aggravated by alcohol. The patient has not experienced similar symptoms in the past. Historical: - Allergies: 05:09 NKA; em - Home Meds: 05:09 atorvastatin 80 mg Oral tab 1 tab once daily [Active]; carvedilol 12.5 mg Oral tab 1 em tab 2 times per day [Active]; losartan 100 mg Oral tab 1 tab once daily [Active]; Synjardy 12.5-500 mg oral tab 1 tab daily [Active]; - PMHx: 05:09 Diabetes - NIDDM; Hyperlipidemia; Hypertension; ADD/ADHD; Myocardial infarction; em Pneumonia; - PSHx: 05:09 None; em - Immunization history:: Adult Immunizations up to date. - Social history:: Smoking status: Patient denies any tobacco usage or history of. ROS: 06:59 Constitutional: Negative for fever, chills, and weight loss, Eyes: Negative for injury, tw4 pain, redness, and discharge, Cardiovascular: Negative for chest pain, palpitations, and edema, Respiratory: Negative for shortness of breath, cough, wheezing, and pleuritic chest pain. 06:59 Back: Negative for injury and pain, MS/Extremity: Negative for injury and deformity, Skin: Negative for injury, rash, and discoloration, Neuro: Negative for headache, weakness, numbness, tingling, and seizure. 06:59 Abdomen/GI: Positive for abdominal pain, nausea, Negative for diarrhea, constipation, abdominal cramps, abdominal distension, anorexia, dysphagia, hematemesis, black/tarry stool, rectal pain. Exam: 06:59 Constitutional: This is a well developed, well nourished patient who is awake, alert, tw4 and in no acute distress. Head/Face: Normocephalic, atraumatic. Chest/axilla: Normal chest wall appearance and motion. Nontender with no deformity. No lesions are appreciated. Cardiovascular: Regular rate and rhythm with a normal S1 and S2. No gallops, murmurs, or rubs. Normal PMI, no JVD. No pulse deficits. Respiratory: Lungs have equal breath sounds bilaterally, clear to auscultation and percussion. No rales, rhonchi or wheezes noted. No increased work of breathing, no retractions or nasal flaring. 06:59 Back: No spinal tenderness. No costovertebral tenderness. Full range of motion. Skin: Warm, dry with normal turgor. Normal color with no rashes, no lesions, and no evidence of cellulitis. MS/ Extremity: Pulses equal, no cyanosis. Neurovascular intact. Full, normal range of motion. Neuro: Awake and alert, GCS 15, oriented to person, place, time, and situation. Cranial nerves II-XII grossly intact. Motor strength 5/5 in all extremities. Sensory grossly intact. Cerebellar exam normal. Normal gait. 06:59 Abdomen/GI: Inspection: abdomen appears normal, Bowel sounds: diminished, in all quadrants, Palpation: moderate abdominal tenderness, in the epigastric area. Vital Signs: 05:06 BP 132 / 90; Pulse 64; Resp 18; Temp 97.8; Pulse Ox 99% on R/A; Weight 117.93 kg; em Height 5 ft. 8 in. (172.72 cm); Pain 4/10; 05:06 Body Mass Index 39.53 (117.93 kg, 172.72 cm) em MDM: 05:03 Patient medically screened. tw4 07:57 Differential diagnosis: appendicitis, cholecystitis, Cholelithiasis, diverticulitis, rn gastritis, gastroesophageal reflux disease, non-specific abd pain, pancreatitis, Peptic Ulcer Disease, Ureterolithiasis. Data reviewed: vital signs, nurses notes, lab test result(s), radiologic studies, CT scan, and as a result, I will discharge patient. Counseling: I had a detailed discussion with the patient and/or guardian regarding: the historical points, exam findings, and any diagnostic results supporting the discharge/admit diagnosis, lab results, radiology results, the need for outpatient follow up, to return to the emergency department if symptoms worsen or persist or if there are any questions or concerns that arise at home. Special discussion: Based on the patient's Hx, exam, and Dx evaluation, there is no indication for emergent surgery or inpatient Tx. It is understood by the patient/guardian that if the Sx's persist or worsen they need to return immediately for re-evaluation. I discussed with the patient/guardian in detail that at this point there is no indication for admission to the hospital. It is understood, however, that if the symptoms persist or worsen the patient needs to return immediately for re-evaluation. ED course: No acute findings on CT or bloodwork, stable vitals, nothing specific on exam or story, will dc home with return precautions.. 12/31 06:00 Order name: Basic Metabolic Panel; Complete Time: 07:11 4 12/31 06:00 Order name: CBC with Diff; Complete Time: 07:11 4 12/31 06:00 Order name: Hepatic Function; Complete Time: 07:11 4 12/31 06:00 Order name: Lipase; Complete Time: 07:11 4 12/31 06:00 Order name: IV Saline Lock; Complete Time: 06:30 tw4 12/31 06:49 Order name: CT Abd/Pelvis - IV Contrast Only; Complete Time: 07:57 4 12/31 06:00 Order name: Labs collected and sent; Complete Time: 06:30 tw4 Administered Medications: No medications were administered Disposition: 12/31/20 07:58 Discharged to Home. Impression: Unspecified abdominal pain. - Condition is Stable. - Discharge Instructions: Abdominal Pain, Adult, Pain Without a Known Cause. - Medication Reconciliation Form, Thank You Letter, Antibiotic Education, Prescription Opioid Use form. - Follow up: Private Physician; When: As needed; Reason: Recheck today's complaints, Re-evaluation by your physician. - Problem is new. - Symptoms have improved. Signatures: Dispatcher [employer] Russ Bach, Bethanie Smith RN, RN RN iw Nieto, Roman, MD MD rn Wadley, Terrence, MD MD tw4 Corrections: (The following items were deleted from the chart) 08:30 07:58 12/31/2020 07:58 Discharged to Home. Impression: Unspecified abdominal pain. iw Condition is Stable. Forms are Medication Reconciliation Form, Thank You Letter, Antibiotic Education, Prescription Opioid Use. Follow up: Private Physician; When: As needed; Reason: Recheck today's complaints, Re-evaluation by your physician. Problem is new. Symptoms have improved. rn
[2020-12-31 08:38] VITALS: BP 132/90; TEMP 97.8; O2SAT 99
== END 2020-12-31 08:30 | disposition home or self-care (01) ==
LOC: ER 04:53
DX: R10.9 Unspecified abdominal pain (principal); E11.9 Type 2 diabetes mellitus without complications; E78.5 Hyperlipidemia, unspecified; I10 Essential (primary) hypertension; F90.9 Attention-deficit hyperactivity disorder, unspecified type; I25.2 Old myocardial infarction
CPT/HCPCS: 85025; 80048; 36415; 80076; 83690; 74177; 99284; Q9967

== ENCOUNTER 2021-01-26 16:57 | Emergency (ER) | payer BC ==
--- OUTSIDE RECORDS SUMMARY | 2021-01-26 17:00 | XMS REPORT | Continuity of Care Document ---
:1965 Author Organization [facility] t Address [address] [place] [address] Care Team Providers Name Role Phone Guevara Mandujano DO Attending Clinician Lab, Eric Pob I Attending Clinician Unavailable Jose Luis RODRÍGUEZ Attending Clinician Problems This patient has no known problems. Allergies, Adverse Reactions, Alerts This patient has no known allergies or adverse reactions. Medications This patient has no known medications. Procedures This patient has no known procedures. Encounters Start End Encounter Admission Attending Care Care Encounter Source Date/Time Date/Time Type Type Clinicians Facility Department ID 2021-01-17 2021-01-17 Patient Delbert [facility] [id number] 00:00:00 00:00:00 Outreach Guevara PAREDES [id number] Anthony [facility] [id number] PAVILLION [id number] 2020-07-21 2020-07-21 Laboratory Lab, Adc [facility] [id number] 12:51:37 13:11:37 Only Fam Pob I Health [id number] [place] [id number] Professio [phone] [address] 2020-04-21 2020-04-21 Patient Jose Luis [facility] [id number] 00:00:00 00:00:00 Secure Msg Rebecca Rivera [id number] [place] [id number] Professio [phone] [address] 2020-04-08 2020-04-08 Patient Jose Luis [facility] [id number] 00:00:00 00:00:00 Secure Msg Rebecca [place] [id number] [place] [id number] [place] [phone] [facility] [address] [facility] 2020-04-07 2020-04-07 Office Jose Luis [facility]CM[facility] [id number] 14:13:22 15:56:05 Visit Rebecca Rivera [id number] [place] [id number] Professio [phone] [address] Results This patient has no known results.
--- NOTE | 2021-01-26 20:18 | ER ---
Nurse's Notes [facility] Name: Enmanuel Jones Age: 55 yrs Sex: Male : 1965 Arrival Date: 01/26/2021 Time: 17:03 Bed 7 Private MD: Diagnosis: Hemorrhoid Presentation: 01/26 17:06 Chief complaint: Patient states: L sided rectal pain for 1 hour. No trauma or falls. BM ll1 this morning was normal. Coronavirus screen: Client denies travel out of the [place] in the last 14 days. At this time, the client does not indicate any symptoms associated with coronavirus-19. Ebola Screen: Patient denies travel to an Ebola-affected area in the 21 days before illness onset. Initial Sepsis Screen: Does the patient meet any 2 criteria? No. Patient's initial sepsis screen is negative. Does the patient have a suspected source of infection? Yes: Other: rectal pain. Risk Assessment: Do you want to hurt yourself or someone else? Patient reports no desire to harm self or others. Onset of symptoms was January 26, 2021. 17:06 Method Of Arrival: Ambulatory ll1 17:06 Acuity: BELLA 3 ll1 Historical: - Allergies: 17:09 NKA; ll1 - PMHx: 17:09 ADD/ADHD; Myocardial infarction; Hypertension; Hyperlipidemia; Diabetes - NIDDM; ll1 Pneumonia; - Immunization history:: Flu vaccine is up to date. - Social history:: Smoking status: Patient denies any tobacco usage or history of. Screenin:13 Abuse screen: Denies threats or abuse. Denies injuries from another. Nutritional mg2 screening: No deficits noted. Tuberculosis screening: No symptoms or risk factors identified. Fall Risk None identified. Assessment: 20:07 General: Appears in no apparent distress. comfortable, Behavior is calm, cooperative. mg2 Pain: Complains of pain in rectum. Neuro: Level of Consciousness is awake, alert, obeys commands, Oriented to person, place, time, situation. Cardiovascular: Capillary refill < 3 seconds Patient's skin is warm and dry. Respiratory: Airway is patent Respiratory effort is even, unlabored, Respiratory pattern is regular, symmetrical. GI: Reports rectal pain. GI: Rectal exam: Hemorrhoids noted. : No signs and/or symptoms were reported regarding the genitourinary system. EENT: No signs and/or symptoms were reported regarding the EENT system. Derm: Skin is intact, Skin is pink, warm \T\ dry. normal. Musculoskeletal: Circulation, motion, and sensation intact. Capillary refill < 3 seconds. Vital Signs: 17:06 BP 140 / 92; Pulse 77; Resp 17; Temp 98.0; Pulse Ox 95% ; Weight 117.93 kg; Height 5 ll1 ft. 8 in. (172.72 cm); Pain 9/10; 20:00 BP 135 / 88; Pulse 78; Resp 18; Pulse Ox 99% on R/A; wh 17:06 Body Mass Index 39.53 (117.93 kg, 172.72 cm) 1 ED Course: 17:03 Patient arrived in ED. ds1 17:08 Triage completed. 1 17:08 Arm band placed on. 1 19:52 Yassine Mackenzie NP is PHCP. pm1 19:52 Laura Hall MD is Attending Physician. pm1 20:07 César Toscano, LB is Primary Nurse. [facility] 20:13 Patient has correct armband on for positive identification. Pulse ox on. NIBP on. Door mg2 closed. Warm blanket given. 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 Patient did not have IV access during this [facility] emergency room visit. Administered Medications: 20:19 Drug: [place] 10 mg-325 mg 1 tabs Route: PO; 20:20 Follow up: Response: No adverse reaction; RASS: Alert and Calm (0) Outcome: 20:17 Discharge ordered by . pm1 20:21 Discharged to home ambulatory. 20:21 Condition: stable 20:21 Discharge instructions given to patient, Instructed on discharge instructions, follow up and referral plans. no drinking with medication, no driving heavy equipment, medication usage, POC Demonstrated understanding of instructions, follow-up care, medications, POC Prescriptions given X 3. 20:21 Patient left the ED. Signatures: Radha Gaspar 1 Yassine Mackenzie NP CONSULTING SYSTEMS ENGINEER pm1 Ayden Dumont RN RN César Toscano RN RN [facility] Kip Miller RN RN [facility]
--- NOTE | 2021-01-26 20:18 | EDPHYS ---
Physician Documentation [facility] Name: Enmanuel Jones Age: 55 yrs Sex: Male : 1965 Arrival Date: 01/26/2021 Time: 17:03 Bed 7 Private MD: ED Physician Laura Hall HPI: 01/26 20:16 This 55 yrs old Male presents to ER via Ambulatory with complaints of Rectal pm1 Pain. 20:16 The patient presents to the emergency department with pain in the rectal area. Onset: pm1 The symptoms/episode began/occurred today, at 16:00. Context: the patient has a known history of hemorrhoids. Modifying factors: The symptoms are alleviated by nothing, The symptoms are aggravated by sitting position. Associate signs and symptoms: Pertinent negatives: abdominal pain, constipation, fever, bleeding. The patient has experienced a previous episode, many years ago. The patient has not recently seen a physician. Historical: - Allergies: 17:09 NKA; ll1 - PMHx: 17:09 ADD/ADHD; Myocardial infarction; Hypertension; Hyperlipidemia; Diabetes - NIDDM; ll1 Pneumonia; - Immunization history:: Flu vaccine is up to date. - Social history:: Smoking status: Patient denies any tobacco usage or history of. ROS: 20:16 Constitutional: Negative for fever, chills, and weight loss, Cardiovascular: Negative pm1 for chest pain, palpitations, and edema, Respiratory: Negative for shortness of breath, cough, wheezing, and pleuritic chest pain. 20:16 Back: Negative for injury and pain, MS/Extremity: Negative for injury and deformity, Skin: Negative for injury, rash, and discoloration, Neuro: Negative for headache, weakness, numbness, tingling, and seizure. 20:16 Abdomen/GI: Positive for rectal pain, Negative for abdominal pain, nausea, vomiting, and diarrhea, rectal bleeding. Exam: 20:16 Constitutional: This is a well developed, well nourished patient who is awake, alert, pm1 and in no acute distress. Head/Face: Normocephalic, atraumatic. 20:16 Cardiovascular: Exam negative for acute changes, Rate: normal, Rhythm: regular, Pulses: no pulse deficits are appreciated. 20:16 Respiratory: Exam negative for acute changes, respiratory distress, shortness of breath. 20:16 Abdomen/GI: Inspection: obese Palpation: abdomen is soft and non-tender, in all quadrants, Rectal exam: is unremarkable, hemorrhoid(s), external, with inflammation, with pain, without bleeding, without thrombosis, small 0.5 cm at 12 o'clock. 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 Vital Signs: 17:06 BP 140 / 92; Pulse 77; Resp 17; Temp 98.0; Pulse Ox 95% ; Weight 117.93 kg; Height 5 ll1 ft. 8 in. (172.72 cm); Pain 9/10; 20:00 BP 135 / 88; Pulse 78; Resp 18; Pulse Ox 99% on R/A; wh 17:06 Body Mass Index 39.53 (117.93 kg, 172.72 cm) ll1 MDM: 19:52 Patient medically screened. pm1 20:16 Data reviewed: vital signs. Data interpreted: Pulse oximetry: on room air is 95 %. pm1 Interpretation: normal. Counseling: I had a detailed discussion with the patient and/or guardian regarding: the historical points, exam findings, and any diagnostic results supporting the discharge/admit diagnosis, the need for outpatient follow up, general surgery or colorectal surgery, to return to the emergency department if symptoms worsen or persist or if there are any questions or concerns that arise at home. 20:21 ED course: [place] reviewed. pm1 Administered Medications: 20:19 Drug: [place] 10 mg-325 mg 1 tabs Route: PO; wh 20:20 Follow up: Response: No adverse reaction; RASS: Alert and Calm (0) Disposition: 01/26/21 20:17 Discharged to Home. Impression: Hemorrhoid. - Condition is Stable. - Discharge Instructions: Hemorrhoids. - Prescriptions for Anusol- HC 2.5 % Rectal Cream - Apply to affected area 1 application by TOPICAL route every 8 hours As needed; 30 gram. Colace 100 mg Oral Tablet - take 1 tablet by ORAL route every 12 hours; 14 tablet. Tylenol- Codeine #3 300-30 mg Oral Tablet - take 2 tablets by ORAL route every 4-6 hours As needed; 20 tablet. - Medication Reconciliation Form, Thank You Letter, Antibiotic Education, Prescription Opioid Use form. - Follow up: Emergency Department; When: As needed; Reason: Worsening of condition. Follow up: Private Physician; When: 2 - 3 days; Reason: Recheck today's complaints, Continuance of care, Re-evaluation by your physician. - Problem is new. - Symptoms have improved. Addendum: 01/29/2021 19:31 Co-signature as Attending Physician, Laura Hall MD. m a2 Signatures: Yassine Mackenzie, SUPERVISOR PAINTING SUPERVISOR PAINTING pm1 Ayden Dumont, RN RN Laura Hall MD MD ma2 Kip Miller RN RN ll1 Corrections: (The following items were deleted from the chart) 01/26 20:21 20:17 01/26/2021 20:17 Discharged to Home. Impression: Hemorrhoid. Condition is Stable. wh Forms are Medication Reconciliation Form, Thank You Letter, Antibiotic Education, Prescription Opioid Use. Follow up: Emergency Department; When: As needed; Reason: Worsening of condition. Follow up: Private Physician; When: 2 - 3 days; Reason: Recheck today's complaints, Continuance of care, Re-evaluation by your physician. Problem is new. Symptoms have improved. pm1
[2021-01-26] MEDS ORDERED: HYDROCODONE/APAP 10/325 TAB ONE (20:35)
== END 2021-01-26 20:21 | disposition home or self-care (01) ==
LOC: ER 16:57
DX: K64.4 Residual hemorrhoidal skin tags (principal)
CPT/HCPCS: 99284

== ENCOUNTER 2022-04-10 19:27 | Emergency (ER) | payer BC, SELFPAY ==
--- OUTSIDE RECORDS SUMMARY | 2022-04-10 19:31 | XMS REPORT | Continuity of Care Document ---
:1965 Author Organization [facility] t Address [address] [place] [address] Care Team Providers Name Role Phone Ronan RODRÍGUEZ, Brittney Gilmore Primary Care Physician [phone] Carmen METZGER Attending Clinician Unavailable DUSTY Attending Clinician Unavailable Only, Db Test Attending Clinician Unavailable Dusty RODRÍGUEZ Attending Clinician Doctor Unassigned, Name Attending Clinician Unavailable LAB90 Attending Clinician Unavailable Ro Ferraro MD Attending Clinician Hao Thomson DO Attending Clinician Carmen CELAYA Attending Clinician Unavailable NISA Attending Clinician Unavailable RO FERRARO Attending Clinician Unavailable Carmen WRIGHT Attending Clinician Unavailable Jose FRENCH Attending Clinician Unavailable Anthony Mandujano DO Attending Clinician LEIGH ANN Attending Clinician Unavailable Lab, Fam Pob I Attending Clinician Unavailable Leigh Ann RODRÍGUEZ Attending Clinician Payers Payer Name Policy Type Policy Number Effective Date Expiration Date S [facility] BCBS 2 [id number] 2020 00:00:00 [employer] [place] - [id number] 2017 00:00:00 OUT OF STATE Problems Condition Condition Condition Status Onset Resolution Last Treating Co mments Source Name Details Category Date Date Treatment Clinician Date Essential Essential Disease Active Cj sey hypertensi hypertensi 9-03 Se ybold on on 00:00: 00 Uncontroll Uncontroll Disease Active K elsey ed type 2 ed type 2 5-04 Seyb old diabetes diabetes 00:00: mellitus mellitus 00 with with hyperglyce hyperglyce aaron aaron DM type 2 DM type 2 Disease Active Cj sey with with -04 Seybold diabetic diabetic 00:00: dyslipidem dyslipidem 00 ia ia Allergies, Adverse Reactions, Alerts Allergy Allergy Status Severity Reaction(s) Onset Inactive Treating Comm ents Source Name Type Date Date Clinician NO KNOWN Drug Active Univers ALLERGIE Class ity of S [facility] Social History Social Habit Start Date Stop Date Quantity Comments Source Exposure to Yes [facility]-CoV-2 [facility] (event) [place] Tobacco use and 2021-02-27 2021-02-27 Smokeless tobacco Ke lsey Seybold exposure 00:00:00 00:00:00 non-user Sex Ass[birth year] At [birth year] Universit y of 00:00:00 00:00:00 [facility] Smoking Status Start Date Stop Date Source Never smoked tobacco Baylee Seyb old Medications Ordered Filled Start Stop Current Ordering Indication Dosage Frequency Signature Comments Components Source Medication Medication Date Date Medication? Clinician (SIG) Name Name Losartan 2020-11 Yes 100mg Take 100 Amanda ey Potassium 1-24 mg by Seybold 100 MG oral 10:04: mouth Tablet 30 daily Amoxicillin 2020-11 Yes [id number] 1{tbl} Take 1 Baylee -Pot 1-24 tablet by Seybold Clavulanate 00:00: mouth 2 875-125 MG 00 times oral Tablet daily Ofloxacin 2020-11- No [id number] 5[drp] Place 5 Baylee 0.3 % otic -10-08 61899 drops into S eybold Solution 00:00: 05:59 the right 00 :00 ear 2 times daily for 7 days Empaglifloz 2020-11 Yes [id number] 1 tablet Baylee in 0-25 po Q daily Seybold (Jardiance) 00:00: 10 MG oral 00 Tablet Losartan Yes 100mg Take 100 Amanda ey Potassium 9-23 mg by Seybold 100 MG oral 11:36: mouth Tablet 40 daily GlipiZIDE Yes [id number] 20mg Take 2 K elsey 10 MG oral 9-03 tablets Seybol d TABLET SR 00:00: (20 mg 24 HR 00 total) by mouth daily (with breakfast) Carvedilol Yes [id number] 12.5mg Take 1 Baylee 12.5 MG 9-03 tablet Seybold oral Tablet 00:00: (12.5 mg 00 total) by mouth 2 times daily (with meals) Atorvastati Yes [id number] 80mg Take 1 Baylee n Calcium 9-03 tablet (80 Seyb old 80 MG oral 00:00: mg total) Tablet 00 by mouth daily Injection Yes [id number] Uses 10 Baylee Device for 9-03 units SQ Seybo ld Insulin 00:00: before (CeQur 00 lunch and Simplicity supper 2U) does meal not apply Device Insulin Yes [id number] 10 units K elsey Aspart 9-03 SQ before Seybold (NovoLOG) 00:00: lunch and 100 UNIT/ML 00 supper subcutaneou meals s Solution GlipiZIDE Yes [id number] 20mg Take 2 K elsey 10 MG oral 9-03 tablets Seybol d TABLET SR 00:00: (20 mg 24 HR 00 total) by mouth daily (with breakfast) Carvedilol Yes [id number] 12.5mg Take 1 Baylee 12.5 MG 9-03 tablet Seybold oral Tablet 00:00: (12.5 mg 00 total) by mouth 2 times daily (with meals) Atorvastati Yes [id number] 80mg Take 1 Baylee n Calcium 9-03 tablet (80 Seyb old 80 MG oral 00:00: mg total) Tablet 00 by mouth daily Injection Yes [id number] Uses 10 Baylee Device for 9-03 units SQ Seybo ld Insulin 00:00: before (CeQur 00 lunch and Simplicity supper 2U) does meal not apply Device Insulin Yes [id number] 10 units K elsey Aspart 9-03 SQ before Seybold (NovoLOG) 00:00: lunch and 100 UNIT/ML 00 supper subcutaneou meals s Solution NovoLOG Yes INJECT 10 Kelse y FlexPen 100 9-03 UNITS Seybold UNIT/ML 00:00: SUBCUTANEO subcutaneou 00 USLY s Solution BEFORE Pen-injecto LUNCH AND r SUPPER MEALS Insulin Yes [id number] Takes up K elsey Glargine 6-02 to 70 Seybold (Basaglar 00:00: units SQ KwikPen) 00 once 100 UNIT/ML nightly subcutaneou -at s Solution bedtime Pen-injecto r Insulin Yes [id number] Takes up K elsey Glargine 6-02 to 70 Seybold (Basaglar 00:00: units SQ KwikPen) 00 once 100 UNIT/ML nightly subcutaneou -at s Solution bedtime Pen-injecto r Insulin Pen Yes [id number] Takes Baylee Needle (B-D 5-04 insulin Seybo ld UF III MINI 00:00: once daily PEN 00 NEEDLES) 31G X 5 MM does not apply Misc Insulin Pen Yes [id number] Takes Baylee Needle (B-D 5-04 insulin Seybo ld UF III MINI 00:00: once daily PEN 00 NEEDLES) 31G X 5 MM does not apply Misc Docusate Yes 1{capsu Take 1 Amanda ey Sodium 100 3-23 le} capsule by Sey bold MG oral 00:00: mouth Capsule 00 every 12 hours Docusate Yes 1{capsu Take 1 Amanda ey Sodium 100 3-23 le} capsule by Sey bold MG oral 00:00: mouth Capsule 00 every 12 hours liraglutide 2019-0 Yes [id number] 1.8mg inject 1.8 Univers 0.6 mg/0.1 6-01 104 mg under ity o f mL (18 mg/3 00:00: [place] mL) 00 daily. Medical injection Branch Insulin 2019-0 Yes [id number] Use as Univ ers [place], 04-07 directed ity of Disposable, 00:00: [place] (ADVOCATE 00 Medical PEN NEEDLE) Branch 31 gauge x 5/16" Ndle liraglutide 2019-0 Yes [id number] 1.8mg inject 1.8 Univers 0.6 mg/0.1 6-01 104 mg under ity o f mL (18 mg/3 00:00: the skin [place] mL) 00 daily. Medical injection Branch Insulin 2019-0 Yes [id number] Use as Univ ers [place], 04-07 directed ity of Disposable, 00:00: [place] (ADVOCATE 00 Medical PEN NEEDLE) Branch 31 gauge x 5/16" Ndle losartan 2017- Yes Univers 100 mg 0-23 ity of tablet 00:00: [place] 00 [facility] losartan 2017-1 Yes Univers 100 mg 0-23 ity of tablet 00:00: [place] [facility] Branch atorvastati 0 Yes Univer s n 80 mg 9-07 ity of tablet 00:00: [facility] Branch carvedilol 0 Yes Univers 12.5 mg 9-07 ity of tablet 00:00: [facility] Branch atorvastati 0 Yes Univer s n 80 mg 9-07 ity of tablet 00:00: [facility] carvedilol 0 Yes Univers 12.5 mg 9-07 ity of tablet 00:00: [place] [facility] SYNJARDY XR 0 Yes Univer s 12.5-1,000 9-06 ity of mg TBph 00:00: [place] [facility] SYNJARDY XR 2017-0 Yes Univer s 12.5-1,000 9-06 ity of mg TBph 00:00: [address] Immunizations Ordered Immunization Filled Immunization Date Status Commen ts Source Name Name Influenza Virus 2021-09-09 Completed Baylee lu Vaccine, Unspecified 00:00:00 Formulation SARS-COV-2 COVID-19 2021-03-28 Completed Unive rsity of PFIZER VACCINE 00:00:00 [facility] SARS-COV-2 COVID-19 2021-03-28 Completed Unive rsity of PFIZER VACCINE 00:00:00 [facility] Covid-19 Vaccine 2021-03-28 Completed Baylee mendoza ([employer]), Mrna-lnp, 00:00:00 Herbert Protein, Pf, 30mcg/0.3ml,IM SARS-COV-2 COVID-19 2021-02-28 Completed Unive rsity of PFIZER VACCINE 00:00:00 [facility] SARS-COV-2 COVID-19 2021-02-28 Completed Unive rsity of PFIZER VACCINE 00:00:00 [facility] Covid-19 Vaccine 2021-02-28 Completed Baylee mendoza ([employer]), Mrna-lnp, 00:00:00 Herbert Protein, Pf, 30mcg/0.3ml,IM Tdap- (Boostrix, 2017-01-27 Completed Baylee fengbojazlyn Adacel) 00:00:00 Pneumococcal Vaccine, 2017-01-27 Completed Cj sey Seybold Polysaccharide 00:00:00 Tdap- (Boostrix, 2017-01-27 Completed Baylee santizold Adacel) 00:00:00 Pneumococcal Vaccine, 2017-01-27 Completed Cj sey Seybold Polysaccharide 00:00:00 Shingles SQ 2015-06-25 Completed Baylee Seybol d (Zostavax) 00:00:00 Shingles SQ 2015-06-25 Completed Baylee Seybol d (Zostavax) 00:00:00 Vital Signs Vital Name Observation Time Observation Value Comments Source Systolic blood pressure 2021-09-30 16:00:00 126 mm[Hg] Balyee Seybold Diastolic blood 2021-09-30 16:00:00 82 mm[Hg] Cjse y Seybold pressure Heart rate 2021-09-30 16:00:00 76 /min Baylee Belén reji Body temperature 2021-09-30 16:00:00 36.56 Ariane Amanda jung Seybold Respiratory rate 2021-09-30 16:00:00 14 /min Amanda Mejia Body height 2021-09-30 16:00:00 172.7 cm Baylee Belén fengjose Body weight 2021-09-30 16:00:00 126.1 kg Baylee Belén reji BMI 2021-09-30 16:00:00 42.27 kg/m2 Baylee mendoza Procedures Procedure Date / Time Performed Performing Clinician [facility] e ASSIGNMENT OF BENEFITS 2021-11-09 19:04:36 Doctor Unassigned, No [facility] Encounters Start End Encounter Admission Attending Care Care Encounter Source Date/Time Date/Time Type Type Clinicians Facility Department ID 2022-01-04 2022-01-04 Outpatient ANGELICA METZGER [id number] Baylee 00:00:00 00:00:00 Seybol d 2021-11-27 2021-11-27 Outpatient ANGELICA METZGER [id number] Baylee 12:15:00 12:15:00 Seybol d 2021-11-09 2021-11-09 Outpatient R DUSTY [facility] [id number] Univers 13:00:00 13:29:01 MAIRA [facility] 2021-11-09 2021-11-09 Laboratory Only, Ang Db Test [facility] 1.2.8 40.114 [id number] Univers 13:00:00 13:15:00 Only DustyMaira [facility] [id number] ity [facility] [id number] Yuval as MEG?BLEA [id number] Ma dical [address] MEDICAL OFFICE BUILDING 2021-11-09 2021-11-09 Outpatient R [facility] [id number] Univers 13:00:00 13:00:00 [id number] [facility] 2021-11-09 2021-11-09 Orders Doctor GARO 1.2.840.114 [id number] Univers 00:00:00 00:00:00 Only Unassigned, CECE [id number] [facility] [id number] Yuval as [id number] [address] 2021-09-30 2021-09-30 Outpatient LAB90 BAYLEE DOW [id number] Baylee 10:45:00 10:45:00 Seybol d 2021-09-30 2021-09-30 Office Manish Ferraro 1.2.840.114 [id number] Baylee 10:00:00 10:30:00 Visit Brittney Mcdaniels [id number] Se aly Gilmore 1.2.7.2.686 [id number] 2021-08-31 2021-08-31 Outpatient ANGELICA METZGER [id number] Baylee 00:00:00 00:00:00 Seybol d 2021-08-31 2021-08-31 Outpatient ANGELICA METZGER [id number] Baylee 00:00:00 00:00:00 Seybol d 2021-08-20 2021-08-20 Outpatient ANGELICA METZGER [id number] Baylee 00:00:00 00:00:00 Seybol d 2021-07-30 2021-07-30 Office YASMANY Thomson 1.2.840.114 [id number] Baylee 11:02:52 11:32:52 Visit Mark Hao [id number] Seybold [id number] [id number] 2021-07-28 2021-07-28 Outpatient YASSINEANGELICA BAYLEE DOW [id number] Baylee 00:00:00 00:00:00 Seybol d 2021-07-20 2021-07-20 Outpatient STU CELAYA [id number] [facility]lee 14:00:00 14:00:00 Seybol d 2021-07-15 2021-07-15 Outpatient YASSINEANGELICA BAYLEE DOW [id number] [place]lee 00:00:00 00:00:00 Seybol d 2021-07-10 2021-07-10 Outpatient YASSINE ANGELICA DOW [id number] [facility]lee 16:00:00 16:00:00 Seybol d 2021-06-30 2021-06-30 Outpatient LAB90 BAYLEE DOW [id number] [place]lee 08:00:00 08:00:00 Seybol d 2021-06-29 2021-06-29 Outpatient JUSTINE DOW [id number] [facility]lee 00:00:00 00:00:00 MD ROB Seybol d 2021-06-23 2021-06-23 Outpatient BAYLEE DOW [id number] [facility]lee 07:30:00 07:30:00 Seybol d 2021-06-18 2021-06-18 Outpatient STU CELAYA [id number] [facility]lee 15:30:00 15:30:00 Seybol d 2021-06-16 2021-06-16 Outpatient BAYLEE FERRARO [id number] [facility]lee 00:00:00 00:00:00 BRITTNEY Seybol d 2021-06-15 2021-06-15 Outpatient JUSTINE DOW [id number] Baylee 00:00:00 00:00:00 MD ROB Seybol d 2021-06-10 2021-06-10 Outpatient BAYLEE FERRARO [id number] Baylee 08:30:00 08:30:00 BRITTNEY greenwood 2021-06-10 2021-06-10 Outpatient RONANBAYLEE [id number] [place]lee 00:00:00 00:00:00 BRITTNEY greenwood 2021-03-28 2021-03-28 Outpatient [facility] [id number] Univers 08:45:00 08:45:00 [id number] y [facility] 2021-03-28 2021-03-28 Outpatient R [facility] [id number] Univers 08:45:00 08:45:00 y [facility] 2021-03-21 2021-03-21 Outpatient [facility] [id number] Univers 08:45:00 08:45:00 [id number] [facility] 2021-02-28 2021-02-28 [facility] [id number] Univers 08:45:00 08:45:00 LUIS E [id number] [facility] 2021-02-28 2021-02-28 [facility] [id number] Univers 08:45:00 08:45:00 LUIS E [facility] 2021-01-28 2021-01-28 Outpatient R [facility] [id number] Univers 10:20:00 10:20:00 [id number] [facility] 2021-01-28 2021-01-28 [facility] [id number] Univers 10:20:00 10:20:00 CHELLY [facility] 2021-01-17 2021-01-[address] [facility] 1.2.840.114 [id number] 00:00:00 00:00:00 Outreach [facility] [id number] [facility] [id number] JEMAL [id number] 2020-08-11 2020-08-11 [facility] [id number] Univers 15:30:00 15:30:00 ASHLEE [id number] [facility] 2020-08-11 2020-08-11 [facility] [id number] Univers 15:30:00 15:30:00 ASHLEE [facility] 2020-07-21 2020-07-21 Laboratory Lab, [facility] 1.2.840.114 [id number] 12:51:37 13:11:37 Only Fam Pob I Health [id number] [place] [id number] Professio [id number] nal [address] 2020-07-21 2020-07-21 Outpatient R [facility] [id number] [facility] 13:00:00 13:00:00 [id number] [facility] 2020-07-21 2020-07-21 Outpatient R [facility] [id number] Univers 13:00:00 13:00:00 [facility] 2020-04-21 2020-04-21 Patient Leigh Ann [facility] 1.2.840.114 [id number] 00:00:00 00:00:00 Secure Msg Ashlee Cisne [id number] [place] [id number] Professio [id number] [facility] 220 [facility] 2020-04-08 2020-04-08 Patient Leigh nAn [facility] 1.2.840.114 [id number] 00:00:00 00:00:00 Secure Msg Ashlee Cis[place] [id number] [place] [id number] Professio [id number] [address] 2020-04-07 2020-04-07 Office Leigh Ann [facility] 1.2.840.114 [id number] 14:13:22 15:56:05 Visit Ashlee Cisne [id number] [place] [id number] Professio [id number] [address] 2020-04-07 2020-04-07 [facility] [id number] Univers 15:30:00 15:30:00 ASHLEE [facility] 2020-04-07 2020-04-07 [facility] [id number] Univers 15:30:00 15:30:00 [facility] 2020-02-04 2020-02-04 Outpatient Hao BELTRÁN [facility] [id number] [facility] 14:30:00 14:30:00 [facility] Results This patient has no known results.
--- NOTE | 2022-04-10 19:57 | ER ---
Nurse's Notes [facility] Name: Enmanuel Jones Age: 56 yrs Sex: Male : 1965 Arrival Date: 04/10/2022 Time: 19:29 Bed Waiting Private MD: Diagnosis: Allergic contact dermatitis due to plants, except food Presentation: 04/10 19:50 Chief complaint: Patient states: I don't know if I got into some poison oak or poison kd3 raya but I've had a rash for about 3 weeks on my left lower belly and my forehead that I cant get rid of. it hurts and keeps me awake at night. Coronavirus screen: Vaccine status: Patient reports receiving the 2nd dose of the covid vaccine. Ebola Screen: No symptoms or risks identified at this time. Initial Sepsis Screen: Does the patient meet any 2 criteria? No. Patient's initial sepsis screen is negative. Does the patient have a suspected source of infection? No. Patient's initial sepsis screen is negative. Risk Assessment: Do you want to hurt yourself or someone else? Patient reports no desire to harm self or others. Onset of symptoms was March 27, 2022. 19:50 Method Of Arrival: Ambulatory kd3 19:50 Acuity: BELLA 3 kd3 Triage Assessment: 19:53 General: Appears in no apparent distress. Behavior is calm, cooperative. Pain: kd3 Complains of pain in left lower abdomen. Neuro: Level of Consciousness is awake, alert, obeys commands, Oriented to person, place, time, situation. Cardiovascular: Patient's skin is warm and dry. Respiratory: Airway is patent Trachea midline Respiratory effort is even, unlabored, Respiratory pattern is regular. Historical: - Allergies: 19:53 NKA; kd3 - Home Meds: 19:53 Amiodarone Oral [Active]; aspirin 81 mg Oral chew 1 tab once daily [Active]; kd3 atorvastatin 80 mg Oral tab 1 tab once daily [Active]; carvedilol 12.5 mg Oral tab 1 tab 2 times per day [Active]; Fish Oil Oral [Active]; Jardiance Oral [Active]; losartan 100 mg Oral tab 1 tab once daily [Active]; metformin 500 mg Oral Tb24 1 tab once daily [Active]; multivitamin Oral tab daily [Active]; Synjardy 12.5-500 mg Oral tab 1 tab daily [Active]; Trulicity 1.5 mg/0.5 mL subcutaneous pnij 0.5 mL once wkly [Active]; Trulicity 1.5 mg BID [Active]; victoza [Active]; - PMHx: 19:53 ADD/ADHD; Diabetes - NIDDM; Hyperlipidemia; Myocardial infarction; Hypertension; kd3 Pneumonia; - Immunization history:: Adult Immunizations up to date, Client reports receiving the 2nd dose of the Covid vaccine. - Social history:: Smoking status: unknown. Screenin:56 Abuse screen: Denies threats or abuse. Denies injuries from another. Nutritional kd3 screening: No deficits noted. Tuberculosis screening: No symptoms or risk factors identified. Fall Risk None identified. Assessment: 20:20 Reassessment: pt seen in triage and discharged from [facility]. kd3 Vital Signs: 19:50 BP 152 / 99; Pulse 81; Resp 17; Temp 99.0; Pulse Ox 99% on R/A; Weight 120.2 kg; Height kd3 5 ft. 8 in. (172.72 cm); Pain 4/10; 19:50 Body Mass Index 40.29 (120.20 kg, 172.72 cm) kd3 ED Course: 19:29 Patient arrived in ED. jj6 19:41 Enoc Beltre DO is Attending Physician. ms3 19:53 Triage completed. kd3 19:53 Arm band placed on right wrist. kd3 19:56 Rigo Muñoz DO is Referral Physician. ms3 19:56 Patient has correct armband on for positive identification. kd3 19:56 No provider procedures requiring assistance completed. Patient did not have IV access kd3 during this emergency room visit. 19:57 Sunshine Jett, RN is Primary Nurse. kd3 Administered Medications: 20:20 Drug: predniSONE 60 mg Route: PO; kd3 20:21 Follow up: Response: No adverse reaction kd3 Medication: 19:56 VIS not applicable for this client. kd3 Outcome: 19:56 Discharged to home ambulatory. kd3 19:56 Condition: stable 19:56 Discharge ordered by . ms3 20:20 Discharge instructions given to patient, Instructed on discharge instructions, follow kd3 up and referral plans. medication usage, Demonstrated understanding of instructions, follow-up care, medications, Prescriptions given X 1. 20:21 Patient left the ED. kd3 Signatures: Enoc Beltre DO DO ms3 Aleida Wolff jj6 Sunshine Jett, RN RN kd3
--- NOTE | 2022-04-10 19:57 | EDPHYS ---
Physician Documentation [facility] Name: Enmanuel Jones Age: 56 yrs Sex: Male : 1965 Arrival Date: 04/10/2022 Time: 19:29 Bed Waiting Private MD: ED Physician Enoc Beltre HPI: 04/10 19:56 This 56 yrs old Male presents to ER via Ambulatory with complaints of Rash, ms3 Eye Swelling. 19:56 The patient's rash thought to be caused by Dermatitis. The rash is located on the face ms3 and abdomen. The rash can be described as vesicular. Onset: The symptoms/episode began/occurred acutely, 3 week(s) ago. Associated signs and symptoms: Pertinent positives: itching, Pertinent negatives: Pain swelling of lips, swelling of throat, swelling of tongue, wheezing. Severity of symptoms: At their worst the symptoms were moderate in the emergency department the symptoms are unchanged Pain is currently a 4 / 10. Historical: - Allergies: 19:53 NKA; kd3 - Home Meds: 19:53 Amiodarone Oral [Active]; aspirin 81 mg Oral chew 1 tab once daily [Active]; kd3 atorvastatin 80 mg Oral tab 1 tab once daily [Active]; carvedilol 12.5 mg Oral tab 1 tab 2 times per day [Active]; Fish Oil Oral [Active]; Jardiance Oral [Active]; losartan 100 mg Oral tab 1 tab once daily [Active]; metformin 500 mg Oral Tb24 1 tab once daily [Active]; multivitamin Oral tab daily [Active]; Synjardy 12.5-500 mg Oral tab 1 tab daily [Active]; Trulicity 1.5 mg/0.5 mL subcutaneous pnij 0.5 mL once wkly [Active]; Trulicity 1.5 mg BID [Active]; victoza [Active]; - PMHx: 19:53 ADD/ADHD; Diabetes - NIDDM; Hyperlipidemia; Myocardial infarction; Hypertension; kd3 Pneumonia; - Immunization history:: Adult Immunizations up to date, Client reports receiving the 2nd dose of the Covid vaccine. - Social history:: Smoking status: unknown. ROS: 19:56 Constitutional: Negative for fever, and chills. Eyes: Negative for injury, pain, ms3 redness, and discharge, Neck: Negative for injury, pain, and swelling, Cardiovascular: Negative for chest pain, and palpitations. Respiratory: Negative for shortness of breath, cough, wheezing, and pleuritic chest pain, Abdomen/GI: Negative for abdominal pain, nausea, vomiting, diarrhea, and constipation, MS/Extremity: Negative for injury and deformity. 19:56 Skin: Positive for rash. 19:56 All other systems are negative. Exam: 19:56 Constitutional: This is a well developed, well nourished patient who is awake, alert, ms3 and in no acute distress. Head/Face: Normocephalic, atraumatic. Neck: Trachea midline, no cervical lymphadenopathy. Supple, full range of motion without nuchal rigidity, or vertebral point tenderness. No Meningismus. Chest/axilla: Normal chest wall appearance and motion. Nontender with no deformity. Cardiovascular: Regular rate and rhythm with a normal S1 and S2. No gallops, murmurs, or rubs. Normal PMI, no JVD. No pulse deficits. Respiratory: Lungs have equal breath sounds bilaterally, clear to auscultation and percussion. No rales, rhonchi or wheezes noted. No increased work of breathing, no retractions or nasal flaring. Abdomen/GI: Soft, non-tender, with normal bowel sounds. No distension or tympany. No guarding or rebound. No evidence of tenderness throughout. 19:56 Skin: rash can be described as erythematous, raised, urticarial, vesicular, on the abdomen and face. Vital Signs: 19:50 BP 152 / 99; Pulse 81; Resp 17; Temp 99.0; Pulse Ox 99% on R/A; Weight 120.2 kg; Height kd3 5 ft. 8 in. (172.72 cm); Pain 4/10; 19:50 Body Mass Index 40.29 (120.20 kg, 172.72 cm) kd3 MDM: 19:56 Patient medically screened. ms3 19:56 Differential diagnosis: Contact Dermatitis. Data reviewed: vital signs, nurses notes. ms3 Data interpreted: Pulse oximetry: on room air is 99 %. Interpretation: normal. Counseling: I had a detailed discussion with the patient and/or guardian regarding: the historical points, exam findings, and any diagnostic results supporting the discharge/admit diagnosis, the need for outpatient follow up, to return to the emergency department if symptoms worsen or persist or if there are any questions or concerns that arise at home. ED course: Discussed physical exam findings with patient. Patient to follow-up with primary care physician in 2 to 3 days. Patient understands and agrees with plan. All questions were answered. Return precautions discussed include worsening symptoms, or any other concerns.. Administered Medications: 20:20 Drug: predniSONE 60 mg Route: PO; kd3 20:21 Follow up: Response: No adverse reaction kd3 Disposition Summary: 04/10/22 19:56 Discharge Ordered Location: Home ms3 Condition: Stable ms3 Diagnosis - Allergic contact dermatitis due to plants, except food ms3 Followup: ms3 - With: Rigo Muñoz, - When: 2 - 3 days - Reason: Recheck today's complaints Discharge Instructions: - Discharge Summary Sheet ms3 - Poison Jeanne Dermatitis ms3 - Poison [place] Dermatitis ms3 - Rash, Adult ms3 Forms: - Medication Reconciliation Form ms3 - Thank You Letter ms3 - Antibiotic Education ms3 - Prescription Opioid Use ms3 Prescriptions: - Prednisone 20 mg Oral Tablet - take 3 tablets by ORAL route once daily for 5 days; 15 tablet; Refills: 0, ms3 Product Selection Permitted Signatures: Enoc Beltre DO DO ms3 Sunshine Jett, RN RN kd3
[2022-04-10] MEDS ORDERED: predniSONE 20 MG TAB ONE (20:22)
[2022-04-10 20:45] VITALS: BP 152/99; TEMP 99; O2SAT 99
== END 2022-04-10 20:21 | disposition home or self-care (01) ==
LOC: ER 19:27
DX: L23.7 Allergic contact dermatitis due to plants, except food (principal); E11.9 Type 2 diabetes mellitus without complications; I10 Essential (primary) hypertension; I25.2 Old myocardial infarction; Z79.82 Long term (current) use of aspirin; Z79.4 Long term (current) use of insulin
CPT/HCPCS: 99283; J7512

== ENCOUNTER 2023-01-20 10:23 | Emergency (ER) | payer SELFPAY ==
--- OUTSIDE RECORDS SUMMARY | 2023-01-20 10:34 | XMS REPORT | Continuity of Care Document ---
:1965 Author Organization [facility] t Address [address] [place] [address] [place] [id number] Care Team Providers Name Role Phone Zaid RODRÍGUEZ, Brittney Gilmore Primary Care Physician [phone] Rigo Muñoz Attending Clinician Unavailable ANGELICA METZGER Attending Clinician Unavailable MAIRA MONTANO Attending Clinician Unavailable Only, Ang Db Test Attending Clinician Unavailable Maira Montano MD Attending Clinician Doctor Unassigned, [address] Attending Clinician Unavailable LAB90 Attending Clinician Unavailable Brittney Ferraro MD Attending Clinician [phone] Mark Thomson DO Attending Clinician STU CELAYA Attending Clinician Unavailable MD NISA Attending Clinician Unavailable BRITTNEY FERRARO Attending Clinician Unavailable LUIS E WRIGHT Attending Clinician Unavailable CHELLY FRENCH Attending Clinician Unavailable Guevara Mandujano DO Attending Clinician ASHLEE BELTRÁN Attending Clinician Unavailable Lab, Adc Fam Pob I Attending Clinician Unavailable Ashlee Beltrán MD Attending Clinician Payers Payer Name Policy Type Policy Number Effective Date Expiration Date Belén aleman [facility] 2 [id number] 2020 00:00:00 BCBS [facility] - [id number] 2017 00:00:00 OUT OF STATE Problems Condition [...] 2 Disease Active Cj sey with with 5-04 Seybold diabetic diabetic 00:00: dyslipidem dyslipidem 00 ia ia Allergies, Adverse Reactions, Alerts Allergy Allergy Status Severity Reaction(s) Onset Inactive Treating Comm ents Source Name Type Date Date Clinician NO KNOWN Drug Active Univers ALLERGIE Class ity of S [facility] Social History Social Habit Start Date Stop Date Quantity Comments Source Exposure to Yes [facility]-CoV-2 [facility] (event) [place] Tobacco use and 2021-02-27 2021-02-27 Smokeless tobacco Ke lsey Seybold exposure 00:00:00 00:00:00 non-user Sex Ass[birth year] At [birth year] Universit y of 00:00:00 00:00:00 [facility] Smoking Status Start Date Stop Date Source Never smoked tobacco Baylee Seyb old Medications Ordered Filled Start Stop Current Ordering Indication Dosage Frequency Signature Comments Components Source Medication Medication Date Date Medication? Clinician (SIG) Name Name Losartan 2020-11 Yes 100mg Take 100 Amanda ey Potassium 1-24 mg by Seybold 100 MG oral 10:04: mouth Tablet 30 daily Amoxicillin 2020-11 Yes [id number] 1{tbl} Take 1 Baylee -Pot 1-24 tablet by Seybold Clavulanate 00:00: mouth 2 875-125 MG 00 times oral Tablet daily Ofloxacin 2020-11- No [id number] 5[drp] Place 5 Baylee 0.3 % otic 1-24 10-08 89969 drops into S eybold Solution 00:00: 05:59 the right 00 :00 ear 2 times daily for 7 days Empaglifloz 2020-11 Yes [id number] 1 tablet Baylee in 0-25 po Q daily Seybold (Jardiance) 00:00: 10 MG oral 00 Tablet Losartan Yes 100mg Take 100 Amanda ey Potassium 9-23 mg by Seybold 100 MG oral 11:36: mouth Tablet 40 daily GlipiZIDE Yes [id number] 20mg Take 2 K elsey 10 MG oral 9-03 tablets Seybol d TABLET SR 00:00: (20 mg 24 HR 00 total) by mouth daily (with breakfast) Carvedilol Yes [id number] 12.5mg Take 1 Baylee 12.5 MG 9-03 tablet Seybold oral Tablet 00:00: (12.5 mg 00 total) by mouth 2 times daily (with meals) Atorvastati Yes [id number] 80mg Take 1 Baylee n Calcium 9-03 tablet (80 Seyb old 80 MG oral 00:00: mg total) Tablet 00 by mouth daily Injection Yes [id number] Uses 10 Baylee Device for 9-03 units SQ Seybo ld Insulin 00:00: before (CeQur 00 lunch and Simplicity supper 2U) does meal not apply Device Insulin Yes [id number] 10 units K elsey Aspart 9-03 SQ before Seybold (NovoLOG) 00:00: lunch and 100 UNIT/ML 00 supper subcutaneou meals s Solution GlipiZIDE Yes [id number] 20mg Take 2 K elsey 10 MG oral 9-03 tablets Seybol d TABLET SR 00:00: (20 mg 24 HR 00 total) by mouth daily (with breakfast) Carvedilol Yes [id number] 12.5mg Take 1 Baylee 12.5 MG 9-03 tablet Seybold oral Tablet 00:00: (12.5 mg 00 total) by mouth 2 times daily (with meals) Atorvastati Yes [id number] 80mg Take 1 Baylee n Calcium 9-03 tablet (80 Seyb old 80 MG oral 00:00: mg total) Tablet 00 by mouth daily Injection Yes [id number] Uses 10 Baylee Device for 9-03 units SQ Seybo ld Insulin 00:00: before (CeQur 00 lunch and Simplicity supper 2U) does meal not apply Device Insulin Yes [id number] 10 units K elsey Aspart 9-03 SQ before Seybold (NovoLOG) 00:00: lunch and 100 UNIT/ML 00 supper subcutaneou meals s Solution NovoLOG Yes INJECT 10 Kelse y FlexPen 100 9-03 UNITS Seybold UNIT/ML 00:00: SUBCUTANEO subcutaneou 00 USLY s Solution BEFORE Pen-injecto LUNCH AND r SUPPER MEALS Insulin Yes [id number] Takes up K elsey Glargine 6-02 to 70 Seybold (Basaglar 00:00: units SQ KwikPen) 00 once 100 UNIT/ML nightly subcutaneou -at s Solution bedtime Pen-injecto r Insulin Yes [id number] Takes up K elsey Glargine 6-02 to 70 Seybold (Basaglar 00:00: units SQ KwikPen) 00 once 100 UNIT/ML nightly subcutaneou -at s Solution bedtime Pen-injecto r Insulin Pen Yes [id number] Takes Baylee Needle (B-D 5-04 insulin Seybo ld UF III MINI 00:00: once daily PEN 00 NEEDLES) 31G X 5 MM does not apply Misc Insulin Pen Yes [id number] Takes Baylee Needle (B-D 5-04 insulin Seybo [...] mouth Capsule 00 every 12 hours liraglutide Yes [id number] 1.8mg inject 1.8 Univers 0.6 mg/0.1 6-01 104 mg under ity o f mL (18 mg/3 00:00: [place] mL) 00 daily. Medical injection Branch Insulin Yes [id number] Use as Univ ers Procious, 04-07 directed ity of Disposable, 00:00: [place] (ADVOCATE 00 Medical PEN NEEDLE) Branch 31 gauge x 5/16" Ndle liraglutide Yes [id number] 1.8mg inject 1.8 Univers 0.6 mg/0.1 6-01 104 mg under ity o f mL (18 mg/3 00:00: [place] mL) 00 daily. Medical injection Branch Insulin Yes [id number] Use as Univ ers Procious, 6 directed ity of Disposable, 00:00: [place] ([place] [address] Medical PEN NEEDLE) Branch 31 gauge x 5/16" Ndle losartan 2017-11 Yes Univers 100 mg 0-23 ity of tablet 00:00: [place] 00 Medical Branch losartan 2017-11 Yes Univers 100 mg 0-23 ity of tablet 00:00: [place] [address] Medical Branch atorvastati Yes Univer s n 80 mg 9-07 ity of tablet 00:00: [place] Medical Branch carvedilol Yes Univers 12.5 mg 9-07 ity of tablet 00:00: [place] [address] Medical Branch atorvastati Yes Univer s n 80 mg 9-07 ity of tablet 00:00: [place] [address] Medical Branch carvedilol Yes Univers 12.5 mg 9-07 ity of tablet 00:00: [address] Branch SYNJARDY XR Yes Univer s 12.5-1,000 9-06 ity of mg TBph 00:00: [address] Branch SYNJARDY XR Yes Univer s 12.5-1,000 9-06 ity of mg TBph 00:00: [address] Branch Immunizations Ordered Immunization Filled Immunization Date Status Commen ts Source Name Name Influenza Virus 2021-09-09 Completed Baylee lu Vaccine, Unspecified 00:00:00 Formulation Covid-19 Vaccine 2021-03-28 Completed Baylee mendoza (Phytel), Mrna-lnp, 00:00:00 Herbert Protein, Pf, 30mcg/0.3ml,IM SARS-COV-2 COVID-19 2021-03-28 Completed Unive rsity of PFIZER VACCINE 00:00:00 [facility] SARS-COV-2 COVID-19 2021-03-28 Completed Unive rsity of PFIZER VACCINE 00:00:00 [facility] Covid-19 Vaccine 2021-02-28 Completed Baylee mendoza (Phytel), Mrna-lnp, 00:00:00 Herbert Protein, Pf, 30mcg/0.3ml,IM SARS-COV-2 COVID-19 2021-02-28 Completed Unive rsity of PFIZER VACCINE 00:00:00 [facility] SARS-COV-2 COVID-19 2021-02-28 Completed Unive rsity of PFIZER VACCINE 00:00:00 [facility] Tdap- (Boostrix, 2017-01-27 Completed Baylee S eybold Adacel) 00:00:00 Pneumococcal Vaccine, 2017-01-27 Completed Cj sey Seybold Polysaccharide 00:00:00 Tdap- (Boostrix, 2017-01-27 Completed Baylee S eybold Adacel) 00:00:00 Pneumococcal Vaccine, 2017-01-27 Completed Cj sey Seybold Polysaccharide 00:00:00 Shingles SQ 2015-06-25 Completed Baylee Seybol d (Zostavax) 00:00:00 Shingles SQ 2015-06-25 Completed Baylee Seybol d (Zostavax) 00:00:00 Vital Signs Vital Name Observation Time Observation Value Comments Source Systolic blood pressure 2021-09-30 16:00:00 126 mm[Hg] Baylee Seybold Diastolic blood 2021-09-30 16:00:00 82 mm[Hg] Kelse y Seybold pressure Heart rate 2021-09-30 16:00:00 76 /min Baylee fengbojazlyn Body temperature 2021-09-30 16:00:00 36.56 Ariane Amanda jung Weinbergybold Respiratory rate 2021-09-30 16:00:00 14 /min Amanda feng Seybold Body height 2021-09-30 16:00:00 172.7 cm Baylee fengbojazlyn Body weight 2021-09-30 16:00:00 126.1 kg Baylee fengbojazlyn BMI 2021-09-30 16:00:00 42.27 kg/m2 Baylee fengbojazlyn Procedures Procedure Date / Time Performed Performing Clinician [facility] e ASSIGNMENT OF BENEFITS 2021-11-09 19:04:36 Doctor Unassigned, No [facility] Branch Encounters Start End Encounter Admission Attending Care Care Encounter Source Date/Time Date/Time Type Type Clinicians Facility Department ID 2022-10-27 Outpatient Muñoz, [facility] [id number] Common 07:59:00 Formerly [facility] [id number] [place] [address] 2022-09-22 Outpatient MuñozGIANNI eddy [facility] [id number] Common 09:46:00 Rigo [id number] [facility] 2022-08-17 Outpatient [facility]ANNI eddy [facility] [id number] Common 09:03:00 Rigo [id number] [facility] 2022-07-13 Outpatient STTASH [facility] [id number] Common 09:01:00 [id number] [facility] 2022-01-04 2022-01-04 Outpatient ANGELICA METZGER [id number] Baylee 00:00:00 00:00:00 Seybol d 2021-11-27 2021-11-27 Outpatient ANGELICA METZGER [id number] Baylee 12:15:00 12:15:00 Seybol d 2021-11-09 2021-11-09 Outpatient Hao MONTANO [facility] [id number] Univers 13:00:00 13:29:01 MAIRA [facility] 2021-11-09 2021-11-09 Laboratory Only, Ang Db Test [facility] 1.2.8 40.114 [id number] Univers 13:00:00 13:15:00 Only Dusty [facility] [id number] ity of [place] [id number] Yuval as MEG?BLEA [phone] [address] MEDICAL OFFICE BUILDING 2021-11-09 2021-11-09 Orders Doctor WYMAN [id number] Univers 00:00:00 00:00:00 Only JadynssCECE zaragoza [id number] ity [facility] [facility] [id number] Yuavl as [phone] [address] 2021-09-30 2021-09-30 Outpatient LAB90 BAYLEE DOW [id number] Baylee 10:45:00 10:45:00 Seybol d 2021-09-30 2021-09-30 Office Manish Ferraro [id number] Baylee 10:00:00 10:30:00 Visit Brittney Mcdaniels [id number] Se aly Gilmore [id number] 2021-08-31 2021-08-31 Outpatient ANGELICA METZGER BAYLEE BAYLEE [id number] Baylee 00:00:00 00:00:00 Seybol d 2021-08-31 2021-08-31 Outpatient ANGELICA METZGER BAYLEE DOW [id number] Baylee 00:00:00 00:00:00 Seybol d 2021-08-20 2021-08-20 Outpatient ANGELICA METZGER BAYLEE BAYLEE [id number] Baylee 00:00:00 00:00:00 Seybol d 2021-07-30 2021-07-30 Office YASMANY Thomson [id number] Baylee 11:02:52 11:32:52 Visit Mark Sullivan.[id number] Seybold [id number] 2021-07-28 2021-07-28 Outpatient ANGELICA METZGER BAYLEE DOW [id number] Baylee 00:00:00 00:00:00 Seybol d 2021-07-20 2021-07-20 Outpatient STU CELAYA BAYLEE DOW [id number] Baylee 14:00:00 14:00:00 Seybol d 2021-07-15 2021-07-15 Outpatient ANGELICA METZGER BAYLEE DOW [id number] Baylee 00:00:00 00:00:00 Seybol d 2021-07-10 2021-07-10 Outpatient ANGELICA METZGER BAYLEE DOW [id number] Baylee 16:00:00 16:00:00 Seybol d 2021-06-30 2021-06-30 Outpatient LAB90 BAYLEE DOW [id number] Baylee 08:00:00 08:00:00 Seybol d 2021-06-29 2021-06-29 Outpatient JUSTINE DOW [id number] [place]lee 00:00:00 00:00:00 MD ROB Seybol d 2021-06-23 2021-06-23 Outpatient BAYLEE DOW [id number] Baylee 07:30:00 07:30:00 Seybol d 2021-06-18 2021-06-18 Outpatient STU CELAYA BAYLEE DOW [id number] Baylee 15:30:00 15:30:00 Seybol d 2021-06-16 2021-06-16 Outpatient BAYLEE FERRARO [id number] Baylee 00:00:00 00:00:00 BRITTNEY Seybol d 2021-06-15 2021-06-15 Outpatient JUSTINE BAYLEE DOW [id number] Baylee 00:00:00 00:00:00 MD ROB Seybol d 2021-06-10 2021-06-10 Outpatient BAYLEE FERRARO [id number] Baylee 08:30:00 08:30:00 BRITTNEY Seybol d 2021-06-10 2021-06-10 Outpatient BAYLEE FERRARO [id number] [place]lee 00:00:00 00:00:00 BRITTNEY Seybol d 2021-03-28 2021-03-28 Outpatient R [facility] [id number] Univers 08:45:00 08:45:00 [facility] 2021-02-28 2021-02-28 Outpatient R ADRIANA, [facility] [id number] Univers 08:45:00 08:45:00 LUIS E [facility] 2021-01-28 2021-01-28 Outpatient R GILLIAN, [facility] [id number] Univers 10:20:00 10:20:00 CHELLY [facility] 2021-01-17 2021-01-17 Patient Delbert [facility] [id number] 00:00:00 00:00:00 [facility] [id number] [facility] [id number] PAVFELISA [id number] 2020-08-11 2020-08-11 Outpatient R LEIGH ANN [facility] [id number] Univers 15:30:00 15:30:00 ASHLEE [facility] 2020-07-21 2020-07-21 Laboratory Lab, [facility] [id number] 12:51:37 13:11:37 Only Fam [facility] [id number] [place] [id number] Professio [id number] [facility] [address] 2020-07-21 2020-07-21 Outpatient R [facility] [id number] Univers 13:00:00 13:00:00 [facility] 2020-04-21 2020-04-21 Patient Leigh Ann [facility] [id number] 00:00:00 00:00:00 Secure Msg Ashlee [place] [id number] [place] [id number] Professio [id number] [facility] 220 [facility] 2020-04-08 2020-04-08 Patient Leigh Ann [facility] [id number] 00:00:00 00:00:00 Secure Msg Ashlee [place] [id number] [place] [id number] Professio [id number] [address] 2020-04-07 2020-04-07 [facility] [id number] 14:13:22 15:56:05 Visit Ashlee [place] [id number] [place] [id number] Professio [id number] [address] 2020-04-07 2020-04-07 [id number] Univers 15:30:00 15:30:00 [facility] 2020-02-04 2020-02-04 Outpatient R [facility] [id number] Univers 14:30:00 14:30:00 [facility] Results This patient has no known results.
[2023-01-20] MEDS ORDERED: KETOROLAC 30 MG/ML INJ ONE (10:54)
[2023-01-20 10:59] LABS: Absolute Lymphocytes (CBC) 1.3 K/uL (0.7-4.9); Hematocrit 48.6 % (39.6-49.0); Lymphocytes % 22.7 % (15.3-44.8); MCV 89.2 fL (80-100); MPV 7.8 fL (7.6-11.3); RBC Red Blood Cell Count 5.45 M/uL (4.33-5.43)
[2023-01-20 11:10] LABS: Potassium 4.3 mmol/L (3.5-5.1)
[2023-01-20] MEDS ORDERED: NA CHLORIDE 0.9% 1,000 ML ONE (11:32)
--- NOTE | 2023-01-20 11:43 | RAD REPORT ---
EXAM DESCRIPTION: US - UPPER EXTREMITY VENOUS UNILATE - 01/20/2023 11:29 am CLINICAL HISTORY: left arm pain and numbness COMPARISON: None. FINDINGS: Left internal jugular vein, left subclavian vein, left axillary vein, left brachial vein, left cephalic, left basilic, left ulnar and left radial veins demonstrate phasic signal. The veins are compressible. Doppler demonstrates good flow. IMPRESSION: No sonographic evidence of thrombus involving the left upper extremity veins.
--- NOTE | 2023-01-20 12:00 | EDPHYS ---
Physician Documentation [facility] Name: Enmanuel Jones Age: 57 yrs Sex: Male : 1965 Arrival Date: 01/20/2023 Time: 10:27 Bed 4 Private MD: ED Physician Jung Moreland Historical: - Allergies: 01/20 10:30 NKA; aa5 - PMHx: 10:30 ADD/ADHD; Diabetes - NIDDM; Hyperlipidemia; Hypertension; Myocardial infarction; aa5 Pneumonia; - Immunization history:: Adult Immunizations unknown. - Social history:: Smoking status: Patient denies any tobacco usage or history of. Vital Signs: 10:30 BP 145 / 89; Pulse 78; Resp 16 S; Temp 98.4(O); Pulse Ox 96% on R/A; Weight 113.4 kg aa5 (R); Height 5 ft. 8 in. (R); 11:00 BP 134 / 92 RA Sitting (auto/lg); Pulse 72; Resp 16; Pulse Ox 99% on R/A; ko1 10:30 Body Mass Index 38.01 (113.40 kg, 172.72 cm) aa5 MDM: 10:29 Patient medically screened. 01/20 10:37 Order name: IV Start; Complete Time: 10:48 kb 01/20 10:37 Order name: CBC with Diff; Complete Time: 11:06 kb 01/20 10:37 Order name: Basic Metabolic Panel; Complete Time: 11:19 kb 01/20 10:43 Order name: UPPER EXTREMITY VENOUS UNILATE; Complete Time: 11:55 EDMS Administered Medications: 10:51 Drug: Ketorolac IVP 15 mg Route: IVP; Site: right forearm; ko1 11:28 Drug: NS 0.9% IV 1000 ml Route: IV; Rate: 1000 ml; Site: right forearm; ko1 Disposition Summary: 01/20/23 11:59 Discharge Ordered Location: Home kb Condition: Stable kb Diagnosis - Hyperglycemia, unspecified kb - Left hand swelling kb Followup: kb - With: Emergency Department - When: As needed - Reason: Worsening of condition Followup: kb - With: Private Physician - When: 2 - 3 days - Reason: Recheck today's complaints, Continuance of care, Re-evaluation by your physician Forms: - Medication Reconciliation Form kb - Thank You Letter kb - Antibiotic Education kb - Prescription Opioid Use kb Signatures: Dispatcher [employer] EDMS Sunita Mcdaniels, ISAURA-C SHAKER REPAIRER-Guadalupe Dorsey, RN RN aa5 Yeni Murphy, RN RN ko1 Corrections: (The following items were deleted from the chart) 10:43 10:38 Extremity Venous [employer]+[id number].RAD.[email or web address] ordered. EDMS EDMS
--- NOTE | 2023-01-20 12:00 | ER ---
Nurse's Notes [facility] Name: Enmanuel Jones Age: 57 yrs Sex: Male : 1965 Arrival Date: 01/20/2023 Time: 10:27 Bed 4 Private MD: Diagnosis: Hyperglycemia, unspecified;Left hand swelling Presentation: 01/20 10:30 Chief complaint: Patient states: "today my left hand felt tight but I didn't think aa5 anything of it and at work I noticed my left hand is swollen and then just now I noticed my right hand is swollen too". Coronavirus screen: At this time, the client does not indicate any symptoms associated with coronavirus-19. Ebola Screen: Patient denies travel to an Ebola-affected area in the 21 days before illness onset. Initial Sepsis Screen: Does the patient meet any 2 criteria? No. Patient's initial sepsis screen is negative. Does the patient have a suspected source of infection? No. Patient's initial sepsis screen is negative. Risk Assessment: Do you want to hurt yourself or someone else? Patient reports no desire to harm self or others. Onset of symptoms was January 20, 2023. 10:30 Method Of Arrival: Ambulatory aa5 10:30 Acuity: BELLA 3 aa5 Historical: - Allergies: 10:30 NKA; aa5 - PMHx: 10:30 ADD/ADHD; Diabetes - NIDDM; Hyperlipidemia; Hypertension; Myocardial infarction; aa5 Pneumonia; - Immunization history:: Adult Immunizations unknown. - Social history:: Smoking status: Patient denies any tobacco usage or history of. Screenin:30 [facility] ED Fall Risk Assessment (Adult) History of falling in the last 3 months, ko1 including since admission No falls in past 3 months (0 pts) Confusion or Disorientation No (0 pts) Intoxicated or Sedated No (0 pts) Impaired Gait No (0 pts) Mobility Assist Device Used No (0 pt) Altered Elimination No (0 pt) Score/Fall Risk Level 0 - 2 = Low Risk Oriented to surroundings, Maintained a safe environment, Educated pt \\T\\ family on fall prevention, incl call for assistance when getting out of bed, Assessed \\T\\ reinforced patient's understanding of fall precautions, Provided non-skid footwear, Hourly rounding (assess needs \\T\\ fall precautionary measures) done, Used ambulatory aids as needed (educated on \\T\\ assisted with), Used gait belt as appropriate. Abuse screen: Denies threats or abuse. Denies injuries from another. Nutritional screening: No deficits noted. Tuberculosis screening: No symptoms or risk factors identified. Assessment: 10:30 General: Appears in no apparent distress. comfortable, Behavior is calm, cooperative, ko1 appropriate for age. Pain: Complains of pain in right hand and left hand. Neuro: No deficits noted. Cardiovascular: No deficits noted. Respiratory: No deficits noted. GI: No deficits noted. : No deficits noted. EENT: No deficits noted. Derm: Skin is pink, warm \\T\\ dry. Musculoskeletal: Swelling present in right hand and left hand. Vital Signs: 10:30 BP 145 / 89; Pulse 78; Resp 16 S; Temp 98.4(O); Pulse Ox 96% on R/A; Weight 113.4 kg aa5 (R); Height 5 ft. 8 in. (R); 11:00 BP 134 / 92 RA Sitting (auto/lg); Pulse 72; Resp 16; Pulse Ox 99% on R/A; ko1 10:30 Body Mass Index 38.01 (113.40 kg, 172.72 cm) aa5 ED Course: 10:27 Patient arrived in ED. rg4 10:29 [facility]cd[facility]C [facility] kb 10:29 Jung Moreland MD is Attending Physician. kb 10:30 Arm band placed on. aa5 10:30 Patient has correct armband on for positive identification. Bed in low position. Call ko1 light in reach. Pulse ox on. NIBP on. Door closed. Lights dimmed. 10:30 Inserted saline lock: 20 gauge in right forearm, using aseptic technique. Blood ko1 collected. 10:31 Triage completed. aa5 10:34 Yeni Murphy, LB is Primary Nurse. ko1 10:48 Basic Metabolic Panel Sent. ko1 10:48 CBC with Diff Sent. ko1 11:31 UPPER EXTREMITY VENOUS UNILATE In Process Unspecified. EDMS Administered Medications: 10:51 Drug: Ketorolac IVP 15 mg Route: IVP; Site: right forearm; ko1 11:28 Drug: NS 0.9% IV 1000 ml Route: IV; Rate: 1000 ml; Site: right forearm; ko1 Outcome: 11:59 Discharge ordered by MD. baker Signatures: Dispatcher [employer] Sunita Guan, JOSAFAT GOLF INSTRUCTOR-Guadalupe Dorsey RN RN aa5 Mona Francis rg4 Yeni Murphy RN RN ko1 Corrections: (The following items were deleted from the chart) 10:32 10:30 Acuity: BELLA 4 aa5 aa5
[2023-01-20 16:06] VITALS: TEMP 98.4
[2023-01-20 16:07] VITALS: BP 134/92; O2SAT 99
== END 2023-01-20 12:27 | disposition home or self-care (01) ==
LOC: ER 10:23
DX: E11.65 Type 2 diabetes mellitus with hyperglycemia (principal); M79.89 Other specified soft tissue disorders
CPT/HCPCS: 36415; 80048; 85025; 93971; 96361; 96374; 99284; J7030

== ENCOUNTER 2023-01-21 04:28 | Emergency (ER) | payer OTHER, SELFPAY ==
--- OUTSIDE RECORDS SUMMARY | 2023-01-21 04:31 | XMS REPORT | Continuity of Care Document ---
:1965 Author Organization [facility] t Address [address] [place] [address] Care Team Providers Name Role Phone Zaid RODRÍGUEZ, Brittney Gilmore Primary Care Physician [phone] Rigo Muñoz Attending Clinician Unavailable ANGELICA METZGER Attending Clinician Unavailable MAIRA MONTNAO Attending Clinician Unavailable Only, Ang Db Test Attending Clinician Unavailable Maira Montano MD Attending Clinician Doctor Unassigned, [place] Attending Clinician Unavailable LAB90 Attending Clinician Unavailable Brittney Ferraro MD Attending Clinician [phone] Mark Thomson DO Attending Clinician STU CELAYA [...] Number Effective Date Expiration Date Belén aleman [facility] 2 [id number] 2020 00:00:00 [employer] [facility] - [id number] 2017 00:00:00 OUT OF STATE Problems Condition [...] ALLERGIE Class ity of S [facility] Social History Social Habit Start Date Stop Date Quantity Comments Source Exposure to Yes [facility]-CoV-2 [facility] (event) [place] Tobacco use and 2021-02-27 2021-02-27 Smokeless tobacco Ke lsey Seybold exposure 00:00:00 00:00:00 non-user Sex Assigned At [birth year] [facility] of 00:00:00 00:00:00 [facility] Smoking Status Start Date Stop Date Source Never smoked tobacco Baylee Seyb old Medications Ordered Filled Start Stop Current Ordering Indication Dosage Frequency Signature Comments Components Source Medication Medication Date Date Medication? Clinician (SIG) Name Name Losartan 2020-11 Yes 100mg Take 100 Amanda ey Potassium 1-24 mg by Seybold 100 MG oral 10:04: mouth Tablet 30 daily Amoxicillin 2020-11 Yes [id number] 1{tbl} Take 1 Baylee -Pot 1-24 tablet by Seybold Clavulanate 00:00: mouth 2 875-125 MG 00 times oral Tablet daily Ofloxacin 2020-11- No [id number] 5[drp] Place 5 Baylee 0.3 % otic 1-24 10-08 [id number] drops into S eybold Solution 00:00: 05:59 the right 00 :00 ear 2 times daily for 7 days Empaglifloz 2020-11 Yes [id number] 1 tablet Baylee in 0-25 po Q daily Seybold (Jardiance) 00:00: 10 MG oral 00 Tablet Losartan Yes 100mg Take 100 Amanda ey Potassium 9-23 mg by Seybold 100 MG oral 11:36: mouth Tablet 40 daily GlipiZIDE Yes [id number] 20mg Take 2 K elsey 10 MG oral 9-03 tablets Seybol d TABLET SR 00:00: (20 mg 24 HR 00 total) by mouth daily (with breakfast) Carvedilol Yes [id number] 12.5mg Take 1 Baylee 12.5 MG 9-03 tablet Seybold oral Tablet 00:00: (12.5 mg 00 total) by mouth 2 times daily (with meals) Atorvastati Yes [id number] 80mg Take 1 Baylee n Calcium 9-03 tablet (80 Seyb old 80 MG oral 00:00: mg total) Tablet 00 by mouth daily Injection Yes [id number] Uses 10 Baylee Device for 9-03 units SQ Seybo ld Insulin 00:00: before (CeQur 00 lunch and Simplicity supper 2U) does meal not apply Device Insulin Yes [id number] 10 units K elsey Aspart 9-03 SQ before Seybold (NovoLOG) 00:00: lunch and 100 UNIT/ML 00 supper subcutaneou meals s Solution GlipiZIDE Yes [id number] 20mg Take 2 K elsey 10 MG oral 9-03 tablets Seybol d TABLET SR 00:00: (20 mg 24 HR 00 total) by mouth daily (with breakfast) Carvedilol Yes [id number] 12.5mg Take 1 Baylee 12.5 MG 9-03 tablet Seybold oral Tablet 00:00: (12.5 mg 00 total) by mouth 2 times daily (with meals) Atorvastati Yes [id number] 80mg Take 1 Baylee n Calcium 9-03 tablet (80 Seyb old 80 MG oral 00:00: mg total) Tablet 00 by mouth daily Injection Yes [id number] Uses 10 Baylee Device for 9-03 units SQ Seybo ld Insulin 00:00: before (CeQur 00 lunch and Simplicity supper 2U) does meal not apply Device Insulin Yes [id number] 10 units K elsey Aspart 9-03 SQ before Seybold (NovoLOG) 00:00: lunch and 100 UNIT/ML 00 supper subcutaneou meals s Solution NovoLOG Yes INJECT 10 Kelse y FlexPen 100 9-03 UNITS Seybold UNIT/ML 00:00: SUBCUTANEO subcutaneou 00 USLY s Solution BEFORE Pen-injecto LUNCH AND r SUPPER MEALS Insulin Yes [id number] Takes up K elsey Glargine 6-02 to 70 Seybold (Basaglar 00:00: units SQ KwikPen) 00 once 100 UNIT/ML nightly subcutaneou -at s Solution bedtime Pen-injecto r Insulin Yes [id number] Takes up K elsey Glargine 6-02 to 70 Seybold (Basaglar 00:00: units SQ KwikPen) 00 once 100 UNIT/ML nightly subcutaneou -at s Solution bedtime Pen-injecto r Insulin Pen Yes [id number] Takes Baylee Needle (B-D 5-04 insulin Seybo ld UF III MINI 00:00: once daily PEN 00 NEEDLES) 31G X 5 MM does not apply Misc Insulin Pen Yes [id number] Takes Baylee Needle (B-D 5-04 insulin Seybo [...] Capsule 00 every 12 hours liraglutide Yes [id number] 1.8mg inject 1.8 Univers 0.6 mg/0.1 6-01 104 mg under ity o f mL (18 mg/3 00:00: [place] mL) 00 daily. Medical injection Branch Insulin Yes [id number] Use as Univ ers Ione, 04-07 directed ity of Disposable, 00:00: [place] (ADVOCATE 00 Medical PEN NEEDLE) Branch 31 gauge x 5/16" Ndle liraglutide Yes [id number] 1.8mg inject 1.8 Univers 0.6 mg/0.1 6-01 104 mg under ity o f mL (18 mg/3 00:00: [place] mL) 00 daily. Medical injection Branch Insulin Yes [id number] Use as Univ ers Ione, 6 directed ity of Disposable, 00:00: [place] ([place] [address] Medical PEN NEEDLE) Branch 31 gauge x 5/16" Ndle losartan 2017-11 Yes Univers 100 mg 0-23 ity of tablet 00:00: [place] 00 Medical Branch losartan 2017-11 Yes Univers 100 mg 0-23 ity of tablet 00:00: [place] [address] Medical Branch atorvastati Yes Univer s n 80 mg 9-07 ity of tablet 00:00: [place] Medical Branch carvedilol Yes Univers 12.5 mg 9-07 ity of tablet 00:00: [place] [address] Medical Branch atorvastati Yes Univer s n 80 mg 9-07 ity of tablet 00:00: [place] [address] Medical Branch carvedilol Yes Univers 12.5 mg 9-07 ity of tablet 00:00: [address] Branch SYNJARDY XR Yes Univer s 12.5-1,000 9-06 ity of mg TBph 00:00: [address] Branch SYNJARDY XR Yes Univer s 12.5-1,000 9-06 ity of mg TBph 00:00: [address] Branch Immunizations Ordered Immunization Filled Immunization Date Status Commen ts Source Name Name Influenza Virus 2021-09-09 Completed Baylee lu Vaccine, Unspecified 00:00:00 Formulation Covid-19 Vaccine 2021-03-28 Completed Baylee mendoza ([employer]), Mrna-lnp, 00:00:00 Herbert Protein, Pf, 30mcg/0.3ml,IM SARS-COV-2 COVID-19 2021-03-28 Completed Unive rsity of PFIZER VACCINE 00:00:00 [facility] SARS-COV-2 COVID-19 2021-03-28 Completed Unive rsity of PFIZER VACCINE 00:00:00 [facility] Covid-19 Vaccine 2021-02-28 Completed Baylee mendoza ([employer]), Mrna-lnp, 00:00:00 Herbert Protein, Pf, 30mcg/0.3ml,IM SARS-COV-2 COVID-19 2021-02-28 Completed Unive rsity of PFIZER VACCINE 00:00:00 [facility] SARS-COV-2 COVID-19 2021-02-28 Completed Unive rsity of PFIZER VACCINE 00:00:00 [facility] Tdap- (Boost[employer], 2017-01-27 Completed Baylee S eybold [...] Name Observation Time Observation Value Comments Source Diastolic blood 2021-09-30 16:00:00 82 mm[Hg] Kelse y Seybold pressure Heart rate 2021-09-30 16:00:00 76 /min Baylee fengbold Body temperature 2021-09-30 16:00:00 36.56 Ariane Amanda ey Seybold Respiratory rate 2021-09-30 16:00:00 14 /min Amanda ey Seybold Body height 2021-09-30 16:00:00 172.7 cm Baylee fengbold Body weight 2021-09-30 16:00:00 126.1 kg Baylee S jungbold BMI 2021-09-30 16:00:00 42.27 kg/m2 Baylee S eybold Systolic blood pressure 2021-09-30 16:00:00 126 mm[Hg] Baylee Seybold Procedures Procedure Date / Time Performed Performing Clinician [facility] e ASSIGNMENT OF BENEFITS 2021-11-09 19:04:36 Doctor Unassigned, No [facility] Branch Encounters Start End Encounter Admission Attending Care Care Encounter Source Date/Time Date/Time Type Type Clinicians Facility Department ID 2022-10-27 Outpatient Muñoz, [facility] [id number] Common 07:59:00 Formerly [facility] [id number] [place] [address] 2022-09-22 Outpatient Muñ[address]ANNI eddy [facility] [id number] Common 09:46:00 Rigo [address] [facility] 2022-08-17 Outpatient [facility] [id number] Common 09:03:00 Rigo [id number] [facility] 2022-07-[address] [facility] [id number] Common 09:01:00 [id number] [facility] 2022-01-04 2022-01-04 Outpatient ANGELICA METZGER [id number] Baylee 00:00:00 00:00:00 Seybol d 2021-11-27 2021-11-27 Outpatient ANGELICA METZGER [id number] Baylee 12:15:00 12:15:00 Seybol d 2021-11-09 2021-11-09 Outpatient Hao MONTANO [facility] [id number] Univers 13:00:00 13:29:[address] [facility] 2021-11-09 2021-11-09 Laboratory Only, Ang Db Test [facility] 1.2.8 40.114 [id number] Univers 13:00:00 13:15:00 Only [facility] [id number] ity of [place] [id number] Yuval as MEG?BLEA [id number] [address] MEDICAL OFFICE BUILDING 2021-11-09 2021-11-09 Orders Doctor WYMAN 1.2.840.114 [id number] Univers 00:00:00 00:00:00 Only JadynssCECE zaragoza [id number] [facility] [id number] Yuval as [id number] [address] 2021-09-30 2021-09-30 Outpatient LAB90 BAYLEE DOW [id number] Baylee 10:45:00 10:45:00 Seybol d 2021-09-30 2021-09-30 Office Manish Ferraro [id number] Baylee 10:00:00 10:30:00 Visit Brittney Mcdaniels [id number] Se aly Gilmore 1.2.7.2.686 [id number] 2021-08-31 2021-08-31 Outpatient ANGELICA METZGER BAYLEE BAYLEE [id number] Baylee 00:00:00 00:00:00 Seybol d 2021-08-31 2021-08-31 Outpatient ANGELICA METZGER BAYLEE DOW [id number] Baylee 00:00:00 00:00:00 Seybol d 2021-08-20 2021-08-20 Outpatient ANGELICA METZGER BAYLEE BAYLEE [id number] Baylee 00:00:00 00:00:00 Seybol d 2021-07-30 2021-07-30 Office YASMANY Thomson 1.2.840.114 [id number] Baylee 11:02:52 11:32:52 Visit Mark Sullivan.1.13.13 Seybold 1.2.7.2.686 [id number] 2021-07-28 2021-07-28 Outpatient ANGELICA METZGER BAYLEE DOW [id number] Baylee 00:00:00 00:00:00 Seybol d 2021-07-20 2021-07-20 Outpatient STU CELAYA BAYLEE DOW [id number] Baylee 14:00:00 14:00:00 Seybol d 2021-07-15 2021-07-15 Outpatient ANGELICA METZGER BAYLEE DOW [id number] Baylee 00:00:00 00:00:00 Seybol d 2021-07-10 2021-07-10 Outpatient ANGELICA METZGER BAYLEE DOW [id number] Baylee 16:00:00 16:00:00 Seybol d 2021-06-30 2021-06-30 Outpatient LAB90 BAYLEE DOW [id number] Baylee 08:00:00 08:00:00 Seybol d 2021-06-29 2021-06-29 Outpatient JUSTINE DOW [id number] Baylee 00:00:00 00:00:00 MD ROB Seybol d 2021-06-23 2021-06-23 Outpatient BAYLEE DOW [id number] Baylee 07:30:00 07:30:00 Seybol d 2021-06-18 2021-06-18 Outpatient STU CELAYA BAYLEE DOW [id number] Baylee 15:30:00 15:30:00 Seybol d 2021-06-16 2021-06-16 Outpatient BAYLEE FERRARO [id number] Baylee 00:00:00 00:00:00 BRITTNEY Seybol d 2021-06-15 2021-06-15 Outpatient JUSTINE BAYLEE DOW [id number] Baylee 00:00:00 00:00:00 MD ROB Seybol d 2021-06-10 2021-06-10 Outpatient BAYLEE FERRARO [id number] Baylee 08:30:00 08:30:00 BRITTNEY Seybol d 2021-06-10 2021-06-10 Outpatient BAYLEE FERRARO [id number] Baylee 00:00:00 00:00:00 BRITTNEY Seybol d 2021-03-28 2021-03-28 Outpatient R [facility] [id number] Univers 08:45:00 08:45:[address] [facility] 2021-02-28 2021-02-28 Outpatient R ADRIANA, [facility] [id number] Univers 08:45:00 08:45:[address] [facility] 2021-01-28 2021-01-28 Outpatient R GILLIAN, [facility] [id number] Univers 10:20:00 10:20:[address] [facility] 2021-01-17 2021-01-17 Patient Delbert [facility] 1.2.840.114 [id number] 00:00:00 00:00:00 Outreach [facility] [id number] [facility] 4.2.7.2.686 PAVFELISA [id number] 2020-08-11 2020-08-11 Outpatient R LEIGH ANN [facility] [id number] Univers 15:30:00 15:30:[address] [facility] 2020-07-21 2020-07-21 Laboratory Lab, [facility] 1.2.840.114 [id number] 12:51:37 13:11:37 Only Fam [facility] [id number] [place] 4.2.7.2.686 Professio [id number] [facility] [address] 2020-07-21 2020-07-21 Outpatient R [facility] [id number] Univers 13:00:00 13:00:[address] [facility] 2020-04-21 2020-04-21 Patient Leigh Ann [facility] 1.2.840.114 [id number] 00:00:00 00:00:00 Secure Msg Ashlee [place] [id number] [place] [id number] Professio [id number] [facility] 2020-04-08 2020-04-08 Patient Leigh Ann [facility] 1.2.840.114 [id number] 00:00:00 00:00:00 Secure Msg Ashlee [place] [id number] [place] 4.2.7.2.686 Professio [id number] [address] 2020-04-07 2020-04-07 [facility] 1.2.840.114 [id number] 14:13:22 15:56:05 Visit Ashlee [place] 350.1.13.10 [place] 4.2.7.2.686 Professio [id number] [address] 2020-04-07 2020-04-07 [id number] Univers 15:30:00 15:30:00 [facility] 2020-02-04 2020-02-04 Outpatient R [facility] [id number] Univers 14:30:00 14:30:00 [facility] Results This patient has no known results.
[2023-01-21] MEDS ORDERED: VANCOMYCIN 1 GM/VIAL ONE (05:31)
[2023-01-21] MEDS ORDERED: DIPHENHYDRAMINE 50 MG/ML VIAL ONE (05:31)
[2023-01-21] MEDS ORDERED: MORPHINE 4 MG/ML SYR ONE (05:31)
[2023-01-21] MEDS ORDERED: PIPERACIL/TAZO 3.375 GM VIAL IV ONE (05:32)
[2023-01-21] MEDS ORDERED: NA CHLORIDE 0.9% 100 ML ONE (05:32)
[2023-01-21] MEDS ORDERED: KETOROLAC 30 MG/ML INJ ONE (05:32)
[2023-01-21] MEDS ORDERED: FAMOTIDINE 20 MG/2 ML VIAL IV ONE (05:32)
[2023-01-21] MEDS ORDERED: NA CHLORIDE 0.9% 250 ML ONE (05:32)
[2023-01-21] MEDS ORDERED: ONDANSETRON 4 MG/2 ML VIAL ONE (05:32)
[2023-01-21] MEDS ORDERED: METHYLPREDNISOLONE 125 MG INJ ONE (05:34)
[2023-01-21 05:43] LABS: Absolute Lymphocytes (CBC) 1.3 K/uL (0.7-4.9); Hematocrit 48.7 % (39.6-49.0); Lymphocytes % 17.6 % (15.3-44.8); MCV 89.4 fL (80-100); MPV 7.6 fL (7.6-11.3); RBC Red Blood Cell Count 5.45 M/uL (4.33-5.43)
[2023-01-21 05:59] LABS: Albumin 3.6 g/dL (3.4-5.0); Bilirubin Direct 0.1 mg/dL (0-0.2); Bilirubin Total 0.8 mg/dL (0.2-1.0); C-Reactive Protein 61.2 mg/L (<3.00); Potassium 4.1 mEq/L (3.5-5.1); Protein, Total 7.3 g/dL (6.4-8.2); Troponin High Sensitivity 3.5 pg/mL (<58.9)
--- NOTE | 2023-01-21 07:41 | EDPHYS ---
Physician Documentation [facility] Name: Enmanuel Jones Age: 57 yrs Sex: Male : 1965 Arrival Date: 01/21/2023 Time: 04:33 Bed 17 Private MD: ED Physician Valdo Buck HPI: 01/21 04:40 This 57 yrs old Male presents to ER via Unassigned with complaints of Hand sp4 Swelling. 07:27 Patient presents with worsening bilateral hand swelling and pain worsening over the sp4 course of past 2 days associated with forehead lesions after he accidentally came into contact with poison raya. Patient was here yesterday and was discharged home with p.oEnedina Sosa for possible cellulitis of the hand. He returns today with bilateral hand swelling that is tense and painful. Historical: - Allergies: 04:50 NKA; kl - Home Meds: 04:50 Amiodarone Oral [Active]; aspirin 81 mg Oral chew 1 tab once daily [Active]; kl atorvastatin 80 mg Oral tab 1 tab once daily [Active]; carvedilol 12.5 mg Oral tab 1 tab 2 times per day [Active]; Jardiance Oral [Active]; Fish Oil Oral [Active]; losartan 100 mg Oral tab 1 tab once daily [Active]; metformin 500 mg Oral Tb24 1 tab once daily [Active]; Trulicity 1.5 mg/0.5 mL subcutaneous pnij 0.5 mL once wkly [Active]; victoza [Active]; Synjardy 12.5-500 mg Oral tab 1 tab daily [Active]; multivitamin Oral tab daily [Active]; - PMHx: 04:50 ADD/ADHD; Diabetes - NIDDM; Hyperlipidemia; Hypertension; Myocardial infarction; kl Pneumonia; - Immunization history:: Adult Immunizations up to date. - Social history:: Smoking status: Patient denies any tobacco usage or history of. - Family history:: not pertinent. ROS: 07:31 Constitutional: Negative for fever, chills, and weight loss, Eyes: Negative for injury, sp4 pain, redness, and discharge, Skin: Negative for injury, positive for bilateral hand swelling , bilateral hand pain bilateral hand tenderness, forehead redness and rash 07:31 All other systems are negative. Exam: 07:31 Constitutional: This is a well developed, well nourished patient who is awake, alert, sp4 uncomfortable appearing Head/Face: Normocephalic, atraumatic. There is red forehead maculopapular rash consistent with acute contact dermatitis Eyes: Pupils equal round and reactive to light, extra-ocular motions intact. Lids and lashes normal. Conjunctiva and sclera are not injected. Cornea within normal limits. Periorbital areas with no swelling, redness, or edema. ENT: Nares patent. No nasal discharge, no septal abnormalities noted. Tympanic membranes are normal and external auditory canals are clear. Oropharynx with no redness, swelling, or masses, exudates, or evidence of obstruction, uvula midline. Mucous membranes moist. Neck: Trachea midline, no thyromegaly or masses palpated, and no cervical lymphadenopathy. Supple, full range of motion without nuchal rigidity, or vertebral point tenderness. No Meningismus. Chest/axilla: Normal chest wall appearance and motion. Nontender with no deformity. No lesions are appreciated. Cardiovascular: Regular rate and rhythm with a normal S1 and S2. No gallops, murmurs, or rubs. Normal PMI, no JVD. No pulse deficits. Respiratory: Lungs have equal breath sounds bilaterally, clear to auscultation and percussion. No rales, rhonchi or wheezes noted. No increased work of breathing, no retractions or nasal flaring. Abdomen/GI: Soft, non-tender, with normal bowel sounds. No distension or tympany. No guarding or rebound. No evidence of tenderness throughout. Back: No spinal tenderness. No costovertebral tenderness. Skin: Warm, dry with normal turgor. Bilateral hand swelling tracking up to mid forearms, bilateral hand and wrist tenderness, there appears to be intense allergic or inflammatory reaction, movement is preserved, capillary refill is preserved. Patient has no sign of compartment syndrome. MS/ Extremity: Pulses equal, no cyanosis. Neurovascular intact. Bilateral hand swelling and tenderness bilateral wrist swelling and tenderness with swelling tracking up bilateral forearms. Neuro: Awake and alert, GCS 15, oriented to person, place, time, and situation. Cranial nerves II-XII grossly intact. Motor strength 5/5 in all extremities. Sensory grossly intact. Psych: Awake, alert, with orientation to person, place and time. Behavior, mood, and affect are within normal limits Vital Signs: 04:47 BP 152 / 99; Pulse 80; Resp 18; Temp 98.9(O); Pulse Ox 95% on R/A; Weight 116.12 kg; kl Height 5 ft. 8 in. ; Pain 6/10; 05:40 BP 137 / 106; Pulse 81; Resp 16; Pulse Ox 97% ; Pain 0/10; pf1 06:30 BP 129 / 89; Pulse 64; Resp 16; Pulse Ox 96% on R/A; Pain 0/10; pf1 04:47 Body Mass Index 38.92 (116.12 kg, 172.72 cm) kl 04:47 Pain Scale: Adult kl 05:40 Pain Scale: Adult pf1 06:30 Pain Scale: Adult pf1 MDM: 04:56 Patient medically screened. sp4 07:31 Differential diagnosis: contusion, tendonitis, Cellulitis, acute myositis, sp4 dermatomyositis, polymyositis, cellulitis. Data reviewed: vital signs, nurses notes, lab test result(s), CBC, electrolytes, hepatic panel. ED course: Patient responded to IV Benadryl, IV Solu-Medrol, and IV morphine for pain, tense swelling has improved on repeat examination, bilateral pulses are preserved and there is no sign of compartment syndrome. There is no sign of envenomation site such as snakebite. Patient has hyperglycemia on his labs. There appears to be intense allergic reaction secondary to exposure to poison raya to bilateral hands and forehead. Patient was advised to take prednisone once a day for 5 days and we will prescribe medications for pain and also anti-inflammatory ibuprofen 3 times a day plus Benadryl 50 mg 3 times a day for the next 5 days. 01/21 04:57 Order name: O2 Per Protocol; Complete Time: 05:02 4 01/21 04:57 Order name: O2 Sat Monitoring; Complete Time: 05:02 4 01/21 04:57 Order name: IV Saline Lock; Complete Time: 05:22 4 01/21 04:57 Order name: Labs collected and sent; Complete Time: 05:22 4 01/21 04:57 Order name: Blood Culture Adult (2) 4 01/21 04:57 Order name: CBC with Diff; Complete Time: 05:57 4 01/21 04:57 Order name: Basic Metabolic Panel; Complete Time: 07:20 01/21 04:57 Order name: LFT's; Complete Time: 07:20 01/21 04:57 Order name: CRP; Complete Time: 07:20 01/21 04:57 Order name: Procalcitonin; Complete Time: 07:20 01/21 05:01 Order name: COVID-19 SARS RT PCR; Complete Time: 07:20 01/21 04:57 Order name: Troponin HS; Complete Time: 07:20 01/21 04:57 Order name: Lactate w/ 2H reflex if indic.; Complete Time: 07:20 01/21 07:21 Order name: Myoglobin [facility] 01/21 07:21 Order name: CK sp4 Administered Medications: 06:02 Drug: Piperacillin-Tazobactam IVPB 3.375 grams Route: IVPB; Infused Over: 60 mins; pf1 Site: right antecubital; 07:00 Follow up: Response: No adverse reaction; Adverse reaction, Physician notified; IV pf1 Status: Completed infusion; IV Intake: 100ml 06:03 Drug: Famotidine IVP 20 mg Route: IVP; Site: right antecubital; pf1 07:00 Follow up: Response: No adverse reaction; Marked relief of symptoms pf1 06:03 Drug: Ketorolac IVP 30 mg Route: IVP; Site: right antecubital; pf1 07:00 Follow up: Response: No adverse reaction; Marked relief of symptoms; Pain is decreased pf1 06:03 Drug: Ondansetron IVP 4 mg Route: IVP; Site: right antecubital; pf1 07:00 Follow up: Response: No adverse reaction; Marked relief of symptoms pf1 06:03 Drug: morphine IVP or IV 4 mg Route: IVP; Infused Over: 4 mins; Site: right antecubital;pf1 07:00 Follow up: Response: No adverse reaction; Marked relief of symptoms; Pain is decreased; pf1 RASS: Alert and Calm (0) 06:04 Drug: diphenhydrAMINE IVP 50 mg Route: IVP; Site: right antecubital; pf1 07:34 Follow up: Response: No adverse reaction; Marked relief of symptoms; Pain is decreased; pf1 RASS: Alert and Calm (0) 07:34 Drug: vancoMYCIN IVPB 1 grams Route: IVPB; Infused Over: 2 hrs; Site: right antecubital;pf1 07:35 Follow up: Response: No adverse reaction; Marked relief of symptoms pf1 07:35 Drug: MethylPREDNISolone Sodium Succinate IM 125 mg Route: IM; Site: Ventrogluteal pf1 RIGHT; 07:35 Follow up: Response: No adverse reaction; Marked relief of symptoms pf1 Disposition Summary: 01/21/23 07:40 Discharge Ordered Location: Home sp4 Problem: new sp4 Symptoms: have improved sp4 Condition: Stable sp4 Diagnosis - Allergic contact dermatitis due to other agents sp4 - Acute allergic reaction secondary to poison raya, bilateral hand swelling, bilateral sp4 hand pain, contact dermatitis of the forehead, acute COVID-19, diabetes mellitus [id number] with hyperglycemia Followup: sp4 - With: Private Physician - When: 2 - 3 days - Reason: Re-evaluation by your physician Discharge Instructions: - Discharge Summary Sheet pf1 Forms: - SBAR form pf1 - Medication Reconciliation Form sp4 - Thank You Letter sp4 - Antibiotic Education sp4 - Prescription Opioid Use sp4 Signatures: Dispatcher [employer] Sherrell Kent RN RN Raquel robbins RN RN pf1 Valdo Buck MD MD sp4
--- NOTE | 2023-01-21 07:41 | ER ---
Nurse's Notes [facility] Name: Enmanuel Jones Age: 57 yrs Sex: Male : 1965 Arrival Date: 01/21/2023 Time: 04:33 Bed 17 Private MD: Diagnosis: Allergic contact dermatitis due to other agents;Acute allergic reaction secondary to poison raya, bilateral hand swelling, bilateral hand pain, contact dermatitis of the forehead, acute COVID-19, diabetes mellitus [id number] with hyperglycemia Presentation: 01/21 04:47 Chief complaint: Patient states: was seen here earlier for left hand swelling reports kl swelling increased and now has swelling to right hand. Coronavirus screen: Vaccine status: Patient reports receiving the 2nd dose of the covid vaccine. Ebola Screen: Patient negative for fever greater than or equal to 101.5 degrees Fahrenheit, and additional compatible Ebola Virus Disease symptoms. Initial Sepsis Screen: Does the patient meet any 2 criteria? No. Patient's initial sepsis screen is negative. Does the patient have a suspected source of infection? Yes: Skin breakdown/wound. Risk Assessment: Do you want to hurt yourself or someone else? Patient reports no desire to harm self or others. 04:47 Method Of Arrival: Ambulatory kl 04:47 Acuity: BELLA 3 kl Triage Assessment: 04:52 General: Appears comfortable, well groomed, well developed, Behavior is calm, kl cooperative. Pain: Complains of pain in right hand Pain currently is 6 out of 10 on a pain scale. Musculoskeletal: Circulation, motion, and sensation intact. Capillary refill < 3 seconds, Swelling present in right hand, left hand and palmar aspect of left forearm. Historical: - Allergies: 04:50 NKA; kl - Home Meds: 04:50 Amiodarone Oral [Active]; aspirin 81 mg Oral chew 1 tab once daily [Active]; kl atorvastatin 80 mg Oral tab 1 tab once daily [Active]; carvedilol 12.5 mg Oral tab 1 tab 2 times per day [Active]; Jardiance Oral [Active]; Fish Oil Oral [Active]; losartan 100 mg Oral tab 1 tab once daily [Active]; metformin 500 mg Oral Tb24 1 tab once daily [Active]; Trulicity 1.5 mg/0.5 mL subcutaneous pnij 0.5 mL once wkly [Active]; victoza [Active]; Synjardy 12.5-500 mg Oral tab 1 tab daily [Active]; multivitamin Oral tab daily [Active]; - PMHx: 04:50 ADD/ADHD; Diabetes - NIDDM; Hyperlipidemia; Hypertension; Myocardial infarction; kl Pneumonia; - Immunization history:: Adult Immunizations up to date. - Social history:: Smoking status: Patient denies any tobacco usage or history of. - Family history:: not pertinent. Screenin:01 [facility] ED Fall Risk Assessment (Adult) History of falling in the last 3 months, pf1 including since admission No falls in past 3 months (0 pts) Confusion or Disorientation No (0 pts) Intoxicated or Sedated No (0 pts) Impaired Gait No (0 pts) Mobility Assist Device Used No (0 pt) Altered Elimination No (0 pt) Score/Fall Risk Level 0 - 2 = Low Risk Oriented to surroundings, Maintained a safe environment, Educated pt \T\ family on fall prevention, incl call for assistance when getting out of bed, Assessed \T\ reinforced patient's understanding of fall precautions, Provided non-skid footwear, Hourly rounding (assess needs \T\ fall precautionary measures) done, Used ambulatory aids as needed (educated on \T\ assisted with). Abuse screen: Denies threats or abuse. Nutritional screening: No deficits noted. Tuberculosis screening: No symptoms or risk factors identified. Assessment: 04:55 General: Appears in no apparent distress. uncomfortable, obese, well groomed, well pf1 developed, Behavior is calm, cooperative, appropriate for age, quiet. 04:55 Pain: Complains of pain in left hand and right hand Pain currently is 6 out of 10 on a pf1 pain scale. Neuro: No deficits noted. Level of Consciousness is awake, alert, obeys commands, Oriented to person, place, time, situation. Cardiovascular: No deficits noted. Capillary refill < 3 seconds Patient's skin is warm and dry. Respiratory: No deficits noted. Airway is patent Trachea midline Respiratory effort is even, unlabored, Respiratory pattern is regular, symmetrical. GI: No deficits noted. Abdomen is round non-distended, Bowel sounds present X 4 quads. : No deficits noted. No signs and/or symptoms were reported regarding the genitourinary system. EENT: No deficits noted. No signs and/or symptoms were reported regarding the EENT system. Derm: No deficits noted. No signs and/or symptoms reported regarding the dermatologic system. Musculoskeletal: Reports pain in left hand and right arm with swelling to left hand,onset yesterday with right hand swelling that started 6 hours ago with now left forearm swelling. 06:05 Reassessment: Patient appears in no apparent distress at this time. No changes from pf1 previously documented assessment. Patient and/or family updated on plan of care and expected duration. Pain level reassessed. Patient is alert, oriented x 3, equal unlabored respirations, skin warm/dry/pink. Patient states symptoms have not improved. 07:00 Reassessment: Patient appears in no apparent distress at this time. No changes from pf1 previously documented assessment. Patient is alert, oriented x 3, equal unlabored respirations, skin warm/dry/pink. Patient states feeling better. Patient states symptoms have improved. Vital Signs: 04:47 BP 152 / 99; Pulse 80; Resp 18; Temp 98.9(O); Pulse Ox 95% on R/A; Weight 116.12 kg; kl Height 5 ft. 8 in. ; Pain 6/10; 05:40 BP 137 / 106; Pulse 81; Resp 16; Pulse Ox 97% ; Pain 0/10; pf1 06:30 BP 129 / 89; Pulse 64; Resp 16; Pulse Ox 96% on R/A; Pain 0/10; pf1 04:47 Body Mass Index 38.92 (116.12 kg, 172.72 cm) kl 04:47 Pain Scale: Adult kl 05:40 Pain Scale: Adult pf1 06:30 Pain Scale: Adult pf1 ED Course: 04:33 Patient arrived in ED. ja2 04:40 Valdo Buck MD is Attending Physician. sp4 04:50 Triage completed. kl 04:55 Raquel doan RN is Primary Nurse. pf1 05:02 Patient has correct armband on for positive identification. Bed in low position. Call pf1 light in reach. 05:15 No provider procedures requiring assistance completed. Inserted saline lock: 22 gauge pf1 in right antecubital area, using aseptic technique. Blood collected. 05:22 Procalcitonin Sent. pf1 05:22 Lactate w/ 2H reflex if indic. Sent. pf1 05:22 CRP Sent. pf1 05:22 Basic Metabolic Panel Sent. pf1 05:22 CBC with Diff Sent. pf1 05:22 LFT's Sent. pf1 05:22 Troponin HS Sent. pf1 05:40 Procalcitonin Sent. ah1 05:40 Lactate w/ 2H reflex if indic. Sent. ah1 05:40 Blood Culture Adult (2) Sent. ah1 05:40 CRP Sent. ah1 05:40 Basic Metabolic Panel Sent. ah1 05:40 CBC with Diff Sent. ah1 05:40 LFT's Sent. ah1 05:40 Troponin HS Sent. ah1 Administered Medications: 06:02 Drug: Piperacillin-Tazobactam IVPB 3.375 grams Route: IVPB; Infused Over: 60 mins; pf1 Site: right antecubital; 07:00 Follow up: Response: No adverse reaction; Adverse reaction, Physician notified; IV pf1 Status: Completed infusion; IV Intake: 100ml 06:03 Drug: Famotidine IVP 20 mg Route: IVP; Site: right antecubital; pf1 07:00 Follow up: Response: No adverse reaction; Marked relief of symptoms pf1 06:03 Drug: Ketorolac IVP 30 mg Route: IVP; Site: right antecubital; pf1 07:00 Follow up: Response: No adverse reaction; Marked relief of symptoms; Pain is decreased pf1 06:03 Drug: Ondansetron IVP 4 mg Route: IVP; Site: right antecubital; pf1 07:00 Follow up: Response: No adverse reaction; Marked relief of symptoms pf1 06:03 Drug: morphine IVP or IV 4 mg Route: IVP; Infused Over: 4 mins; Site: right antecubital;pf1 07:00 Follow up: Response: No adverse reaction; Marked relief of symptoms; Pain is decreased; pf1 RASS: Alert and Calm (0) 06:04 Drug: diphenhydrAMINE IVP 50 mg Route: IVP; Site: right antecubital; pf1 07:34 Follow up: Response: No adverse reaction; Marked relief of symptoms; Pain is decreased; pf1 RASS: Alert and Calm (0) 07:34 Drug: vancoMYCIN IVPB 1 grams Route: IVPB; Infused Over: 2 hrs; Site: right antecubital;pf1 07:35 Follow up: Response: No adverse reaction; Marked relief of symptoms pf1 07:35 Drug: MethylPREDNISolone Sodium Succinate IM 125 mg Route: IM; Site: Ventrogluteal pf1 RIGHT; 07:35 Follow up: Response: No adverse reaction; Marked relief of symptoms pf1 Intake: 07:00 IV: 100ml; Total: 100ml. pf1 Outcome: 07:40 Discharge ordered by . sp4 Signatures: Sherrell Miller RN RN kl Alexander, Jessica ja2 finley, Pamala, RN RN pf1 Valdo Buck MD MD sp4 Iliana Thornton Arlene
[2023-01-21] MEDS ORDERED: INSULIN -REGULAR HUMAN 50 UNIT/0.5 ML ML ONE (07:52)
[2023-01-21 09:19] VITALS: TEMP 98.9
[2023-01-21 09:22] VITALS: BP 129/89; O2SAT 96
== END 2023-01-21 08:48 | disposition home or self-care (01) ==
LOC: ER 04:28
DX: L23.89 Allergic contact dermatitis due to other agents (principal); U07.1 COVID-19; E11.65 Type 2 diabetes mellitus with hyperglycemia
CPT/HCPCS: 36415; 80048; 80076; 82550; 83605; 84145; 84484; 85025; 86140; 87040; 96365; 96367; 96372; 96375; 99284; J1200; J1815; J2405; J2543; J2930; J7050; U0003

== ENCOUNTER 2023-10-03 00:33 | Emergency (ER) | payer OTHER, SELFPAY ==
--- OUTSIDE RECORDS SUMMARY | 2023-10-03 00:37 | XMS REPORT | Continuity of Care Document ---
:1965 Author Organization [facility] t Address [address] [facility] [address] [place] [address] Care Team Providers Name Role Phone GAURANGCARLIN JENI Chung Primary Care Physician Unavailable Rigo Muñoz Attending Clinician Unavailable ANGELICA METZGER Attending Clinician Unavailable MAIRA MONTANO Attending Clinician Unavailable Only, Ang Db Test Attending Clinician Unavailable Maira Montano MD Attending Clinician Doctor Unassigned, [place] Attending Clinician Unavailable LAB90 Attending Clinician Unavailable Brittney Ferraro MD Attending Clinician [phone] Mark Thomson DO Attending Clinician STU CELAYA [...] Policy Number Effective Date Expiration Date S love BC 2 [id number] 2020 00:00:00 [facility] - [id number] 2017 00:00:00 OUT OF STATE Problems Condition Condition Condition Status Onset Resolution Last Treating Co mments Source Name Details Category Date Date Treatment Clinician Date Essential Essential Disease Active Cj hurtado hypertensi hypertensi 9-03 Se ybold on on 00:00: 00 Uncontroll Uncontroll Disease Active K elsekevon ed type 2 ed type 2 5-04 Seyb old diabetes diabetes 00:00: mellitus mellitus 00 with with hyperglyce hyperglyce aaron aaron DM type 2 DM type 2 Disease Active Cj hurtado with with 5-04 Seybold diabetic diabetic 00:00: dyslipidem dyslipidem 00 ia ia Allergies, Adverse Reactions, Alerts Allergy Allergy Status Severity Reaction(s) Onset Inactive Treating Comm ents Source Name Type Date Date Clinician NO KNOWN Drug Active Univers ALLERGIE Class ity of [facility] Social History Social Habit Start Date Stop Date Quantity Comments Source Exposure to Yes University SARS-CoV-2 [facility] (event) Branch Exposure to Not sure Baylee Urbanool d SARS-CoV-2 (event) Tobacco use and 2021-02-27 2021-02-27 Smokeless tobacco Ke lsey Seybold exposure 00:00:00 00:00:00 non-user Sex Ass[birth year] At [birth year] Universit y of 00:00:00 00:00:00 [facility] Smoking Status Start Date Stop Date Source Never smoked tobacco Baylee Urbano old Never smoker [facility] Medications Ordered Filled Start Stop Current Ordering Indication Dosage Frequency Signature Comments Components Source Medication Medication Date Date Medication? Clinician (SIG) Name Name Losartan 2020-11 Yes 100mg Take 100 Amanda ey Potassium 1-24 mg by Seybold 100 MG oral 10:04: mouth Tablet 30 daily Amoxicillin 2020-11 Yes [id number] 1{tbl} Take 1 Baylee -Pot 1-24 tablet by Seybold Clavulanate 00:00: mouth 2 875-125 MG 00 times oral Tablet daily Ofloxacin 2020-11- No [id number] 5[drp] Place 5 Baylee 0.3 % otic -24 10-08 [id number] drops into S eybold Solution 00:00: 05:59 the right 00 :00 ear 2 times daily for 7 days Empaglifloz 2020-11 Yes [id number] 1 tablet Baylee in 0-25 po Q daily Seybold (Jardiance) 00:00: 10 MG oral 00 Tablet Losartan Yes 100mg Take 100 Amanda ey Potassium 9-23 mg by Seybold 100 MG oral 11:36: mouth Tablet 40 daily GlipiZIDE Yes [id number] 20mg Take 2 K elsey 10 MG oral 9-03 tablets Seybol d TABLET SR 00:00: (20 mg 24 HR 00 total) by mouth daily (with breakfast) Carvedilol Yes [id number] 12.5mg Take 1 Baylee 12.5 MG 9-03 tablet Seybold oral Tablet 00:00: (12.5 mg 00 total) by mouth 2 times daily (with meals) Atorvastati Yes [id number] 80mg Take 1 Baylee n Calcium 9-03 tablet (80 Seyb old 80 MG oral 00:00: mg total) Tablet 00 by mouth daily Injection Yes [id number] Uses 10 Baylee Device for 9-03 units SQ Seybo ld Insulin 00:00: before (CeQur 00 lunch and Simplicity supper 2U) does meal not apply Device Insulin Yes [id number] 10 units K elsey Aspart 9-03 SQ before Seybold (NovoLOG) 00:00: lunch and 100 UNIT/ML 00 supper subcutaneou meals s Solution GlipiZIDE Yes [id number] 20mg Take 2 K elsey 10 MG oral 9-03 tablets Seybol d TABLET SR 00:00: (20 mg 24 HR 00 total) by mouth daily (with breakfast) Carvedilol Yes [id number] 12.5mg Take 1 Baylee 12.5 MG 9-03 tablet Seybold oral Tablet 00:00: (12.5 mg 00 total) by mouth 2 times daily (with meals) Atorvastati Yes [id number] 80mg Take 1 Baylee n Calcium 9-03 tablet (80 Seyb old 80 MG oral 00:00: mg total) Tablet 00 by mouth daily Injection Yes [id number] Uses 10 Baylee Device for 9-03 units SQ Seybo ld Insulin 00:00: before (CeQur 00 lunch and Simplicity supper 2U) does meal not apply Device Insulin Yes [id number] 10 units K elsey Aspart 9-03 SQ before Seybold (NovoLOG) 00:00: lunch and 100 UNIT/ML 00 supper subcutaneou meals s Solution NovoLOG Yes INJECT 10 Kelse y FlexPen 100 9-03 UNITS Seybold UNIT/ML 00:00: SUBCUTANEO subcutaneou 00 USLY s Solution BEFORE Pen-injecto LUNCH AND r SUPPER MEALS Insulin Yes [id number] Takes up K elsey Glargine 6-02 to 70 Seybold (Basaglar 00:00: units SQ KwikPen) 00 once 100 UNIT/ML nightly subcutaneou -at s Solution bedtime Pen-injecto r Insulin Yes [id number] Takes up K elsey Glargine 6-02 to 70 Seybold (Basaglar 00:00: units SQ KwikPen) 00 once 100 UNIT/ML nightly subcutaneou -at s Solution bedtime Pen-injecto r Insulin Pen Yes [id number] Takes Baylee Needle (B-D 5-04 insulin Seybo ld UF III MINI 00:00: once daily PEN 00 NEEDLES) 31G X 5 MM does not apply Misc Insulin Pen Yes [id number] Takes Baylee Needle (B-D 5-04 insulin Seybo [...] Capsule 00 every 12 hours liraglutide Yes [id number] 1.8mg inject 1.8 Univers 0.6 mg/0.1 04-07 104 mg under ity o f mL (18 mg/3 00:00: [place] mL) 00 daily. Medical injection Branch Insulin Yes [id number] Use as Univ ers [place], 04-07 directed ity of Disposable, 00:00: [place] (ADVOCATE 00 Medical PEN NEEDLE) Branch 31 gauge x 5/16" Ndle liraglutide Yes [id number] 1.8mg inject 1.8 Univers 0.6 mg/0.1 04-07 104 mg under ity o f mL (18 mg/3 00:00: the [place] mL) 00 daily. Medical injection Branch Insulin Yes [id number] Use as Univ ers [place], 04-07 directed ity of Disposable, 00:00: [place] ([place] [address] Medical PEN NEEDLE) Branch 31 gauge x 5/16" Ndle losartan 2017-11 Yes Univers 100 mg 0-23 ity of tablet 00:00: [place] [address] Medical Branch losartan 2017-11 Yes Univers 100 mg 0-23 ity of tablet 00:00: [place] [address] Medical Branch atorvastati Yes Univer s n 80 mg 9-07 ity of tablet 00:00: [place] [address] Medical Branch carvedilol Yes Univers 12.5 mg 9-07 ity of tablet 00:00: [place] [address] Medical Branch atorvastati Yes Univer s n 80 mg 9-07 ity of tablet 00:00: [place] [address] Medical Branch carvedilol Yes Univers 12.5 mg 9-07 ity of tablet 00:00: [place] [address] Medical Branch SYNJARDY XR Yes Univer s 12.5-1,000 9-06 ity of mg TBph 00:00: [address] Branch SYNJARDY XR Yes Univer s 12.5-1,000 9-06 ity of mg TBph 00:00: [place] [address] Medical [place] Vital Signs Vital Name Observation Time Observation Value Comments Source Systolic blood pressure 2021-09-30 16:00:00 126 mm[Hg] Baylee Roberto Diastolic blood 2021-09-30 16:00:00 82 mm[Hg] Janes Mejia pressure Heart rate 2021-09-30 16:00:00 76 /min Baylee mendoza Body temperature 2021-09-30 16:00:00 36.56 Ariane Amanda jung Weinbergybold Respiratory rate 2021-09-30 16:00:00 14 /min Amanda Mejia Body height 2021-09-30 16:00:00 172.7 cm Baylee mendoza Body weight 2021-09-30 16:00:00 126.1 kg Baylee mendoza BMI 2021-09-30 16:00:00 42.27 kg/m2 Baylee Melissa reji Procedures Procedure Date / Time Performed Performing Clinician [facility] Gladwin dario ASSIGNMENT OF BENEFITS 2021-11-09 19:04:36 Doctor Unassigned, No [facility] Encounters Start End Encounter Admission Attending Care Care Encounter Source Date/Time Date/Time Type Type Clinicians Facility Department ID 2023-05-19 Outpatient Muñoz, STLMLC STLMLC [id number] Common 14:14:00 Rigo 28799 [facility] 2023-04-29 Outpatient Muñoz, STLMLC STLMLC [id number] Common 09:23:00 Rigo 40477 [facility] 2023-02-17 Outpatient Muñoz, STLMLC STLMLC [id number] Common 10:21:00 Rigo 86819 [facility] 2023-02-15 Outpatient Muñoz, STLMLC STLMLC [id number] Common 16:54:00 Rigo 22969 [facility] 2022-10-27 Outpatient Muñoz, STLMLC STLMLC [id number] Common 07:59:00 Rigo 83748 [facility] 2022-09-22 Outpatient Muñoz, STLMLC STLMLC [id number] Common 09:46:00 Rigo 42919 [facility] 2022-08-17 Outpatient Muñoz, STLMLC STLMLC [id number] Common 09:03:00 Rigo 48288 [facility] 2022-07-13 Outpatient STLMLC STLMLC [id number] Common 09:01:00 25226 [facility] 2022-01-04 2022-01-04 Outpatient ANGELICA METZGER [id number] Baylee 00:00:00 00:00:00 Seybol d 2021-11-27 2021-11-27 Outpatient ANGELICA METZGER [id number] [place] 12:15:00 12:15:00 Seybol d 2021-11-09 2021-11-09 Outpatient Hao MONTANO [facility] [id number] Univers 13:00:00 13:29:01 MAIRA ity of [facility] 2021-11-09 2021-11-09 Laboratory Only, Ang Db Test [facility] 1.2.8 40.114 [id number] Univers 13:00:00 13:15:00 Only Maira Montano [id number] ity of [place] [id number] Yuval as MEG?BLEA [phone] Co dical [address] MEDICAL OFFICE BUILDING 2021-11-09 2021-11-09 Orders Doctor GARO [id number] Univers 00:00:00 00:00:00 Only Unassigned, CECE [id number] ity of [place] [facility] [id number] Yuval as [phone] [address] 2021-09-30 2021-09-30 Outpatient LAB90 BAYLEE DOW [id number] [place]lee 10:45:00 10:45:00 Seybol d 2021-09-30 2021-09-30 Office Manish Ferraro [id number] [place]lee 10:00:00 10:30:00 Visit Brittney Mcdaniels [id number] Se aly Gilmore 1.2.7.2.686 [id number] 2021-08-31 2021-08-31 Outpatient ANGELICA METZGER [id number] [place] 00:00:00 00:00:00 Seybol d 2021-08-31 2021-08-31 Outpatient ANGELICA METZGER [id number] [place] 00:00:00 00:00:00 Seybol d 2021-08-20 2021-08-20 Outpatient ANGELICA METZGER [id number] [place] 00:00:00 00:00:00 Seybol d 2021-07-30 2021-07-30 Office YASMANY Thomson [id number] [place] 11:02:52 11:32:52 Visit Mark Bui [id number] Seybtyler 1.2.7.2.686 [id number] 2021-07-28 2021-07-28 Outpatient ANGELICA METZGER BAYLEE DOW [id number] [place] 00:00:00 00:00:00 Seybol d 2021-07-20 2021-07-20 Outpatient STU CELAYA BAYLEE DOW [id number] [place] 14:00:00 14:00:00 Seybol d 2021-07-15 2021-07-15 Outpatient ANGELICA METZGER BAYLEE DOW [id number] [place] 00:00:00 00:00:00 Seybol d 2021-07-10 2021-07-10 Outpatient ANGELICA METZGER BAYLEE DOW [id number] [place] 16:00:00 16:00:00 Seybol d 2021-06-30 2021-06-30 Outpatient LAB90 BAYLEE DOW [id number] [place] 08:00:00 08:00:00 Seybol d 2021-06-29 2021-06-29 Outpatient JUSTINE DOW [id number] [place] 00:00:00 00:00:00 MD ROB Seybol d 2021-06-23 2021-06-23 Outpatient BAYLEE DOW [id number] [place] 07:30:00 07:30:00 Seybol d 2021-06-18 2021-06-18 Outpatient YOMISTU BAYLEE DOW [id number] [place] 15:30:00 15:30:00 Seybol d 2021-06-16 2021-06-16 Outpatient BAYLEE FERRARO [id number] [place] 00:00:00 00:00:00 BRITTNEY Seybol d 2021-06-15 2021-06-15 Outpatient JUSTINE DOW [id number] [place] 00:00:00 00:00:00 MD ROB Seybol d 2021-06-10 2021-06-10 Outpatient BAYLEE FERRARO [id number] [place]lee 08:30:00 08:30:00 BRITTNEY Seybol d 2021-06-10 2021-06-10 Outpatient BAYLEE FERRARO [id number] [place] 00:00:00 00:00:00 BRITTNEY Seybol d 2021-03-28 2021-03-28 Outpatient R [facility] [id number] Univers 08:45:00 08:45:00 [facility] 2021-02-28 2021-02-28 Outpatient R ADRIANA, [facility] [id number] Univers 08:45:00 08:45:00 LUIS E [facility] 2021-01-28 2021-01-28 [facility] [id number] Univers 10:20:00 10:20:00 CHELLY [facility] 2021-01-17 2021-01-17 [facility] [id number] 00:00:00 00:00:00 Outreach Guevara [facility] [id number] [facility] [id number] PAVFELISA [id number] [facility] 2020-08-11 2020-08-11 Outpatient [facility] [id number] Univers 15:30:00 15:30:00 [facility] 2020-07-21 2020-07-21 Laboratory Lab, [facility] 1.2.840.114 [id number] 12:51:37 13:11:37 Only Fam [facility] [id number] [place] [id number] Professio [phone] nal [address] 2020-07-21 2020-07-21 Outpatient R [facility] [id number] Univers 13:00:00 13:00:00 [facility] 2020-04-21 2020-04-21 Patient [facility] 1.2.840.114 [id number] 00:00:00 00:00:00 Secure Msg Ashlee [place] [id number] [place] [id number] Professio [phone] [facility] [address] Building 2020-04-08 2020-04-08 Patient [facility] 12.840.114 [id number] 00:00:00 00:00:00 Secure Msg Ashlee [place] [id number] [place] [id number] Professio [id number] [address] 2020-04-07 2020-04-07 Office Leigh Ann [facility] 1.2.840.114 [id number] 14:13:22 15:56:05 Visit Ashlee Rivera [id number] Mir[place] 4.2.7.2.686 Harvey [id number] [address] 2020-04-07 2020-04-07 [facility] [id number] [facility] 15:30:00 15:30:00 [facility] 2020-02-04 2020-02-04 Outpatient R LEIGH ANN [facility] [id number] Univers 14:30:00 14:30:00 [facility] Results This patient has no known results.
[2023-10-03] MEDS ORDERED: dexAMETHasone 10 MG/ML VIAL ONE (01:29)
[2023-10-03] MEDS ORDERED: KETOROLAC 30 MG/ML INJ ONE (01:29)
[2023-10-03 01:55] LABS: Urine Bacteria None Seen /HPF (<20); Urine Bilirubin NEGATIVE (Negative); Urine Blood Negative (Negative); Urine Clarity Clear (Clear); Urine Color Colorless (Yellow); Urine Glucose 3+ (Negative); Urine Mucus Slight /HPF (None Seen); Urine Protein NEGATIVE (Negative); Urine RBC <5 /HPF (None Seen); Urine Urobilinogen Normal (Normal)
--- NOTE | 2023-10-03 02:02 | ER ---
Nurse's Notes [facility] Name: Enmanuel Jones Age: 58 yrs Sex: Male : 1965 Arrival Date: 10/03/2023 Time: 00:33 Bed 7 Private MD: Diagnosis: Dorsalgia, unspecified Presentation: 10/03 00:40 Chief complaint: Patient states: bilateral flank and lower back pain of 7 with urinary pf1 frequency onset on Tuesday. Patient denies any N/V/D or injury. Patient stated has cough that started on Tuesday. 00:40 Coronavirus screen: Vaccine status: Patient reports receiving the 2nd dose of the covid pf1 vaccine. 3 doses Client denies travel out of the [place] in the last 14 days. At this time, the client does not indicate any symptoms associated with coronavirus-19. Ebola Screen: Patient negative for fever greater than or equal to 101.5 degrees Fahrenheit, and additional compatible Ebola Virus Disease symptoms. Initial Sepsis Screen: Does the patient meet any 2 criteria? HR > 90 bpm. Does the patient have a suspected source of infection? No. Patient's initial sepsis screen is negative. Risk Assessment: Do you want to hurt yourself or someone else? Patient reports no desire to harm self or others. 00:40 Method Of Arrival: Ambulatory pf1 00:40 Acuity: BELLA 3 pf1 Triage Assessment: 01:00 General: Appears in no apparent distress. uncomfortable, Behavior is calm, cooperative, bp appropriate for age. Pain: Complains of pain in low back area. Historical: - Allergies: 01:01 NKA; pf1 - PMHx: 01:01 ADD/ADHD; Diabetes - NIDDM; Hyperlipidemia; Hypertension; Myocardial infarction; pf1 Pneumonia; 01:04 urolithiasis; hemorrhoids; pf1 - PSHx: 01:04 Hemorrhoidectomy; pf1 - Immunization history:: Adult Immunizations up to date, Last tetanus immunization: > 10 years ago Flu vaccine is up to date. - Social history:: Smoking status: Patient denies any tobacco usage or history of. Patient/guardian denies using alcohol, street drugs. Screenin:00 [facility] ED Fall Risk Assessment (Adult) History of falling in the last 3 months, bp including since admission No falls in past 3 months (0 pts). Abuse screen: Denies threats or abuse. Denies injuries from another. Nutritional screening: No deficits noted. Tuberculosis screening: No symptoms or risk factors identified. Assessment: 01:00 General: SEE TRIAGE NOTE. bp Vital Signs: 00:40 BP 144 / 101; Pulse 93; Resp 16; Temp 99; Pulse Ox 99% on R/A; Weight 115.67 kg; Height pf1 5 ft. 8 in. ; Pain 7/10; 00:40 Body Mass Index 38.77 (115.67 kg, 172.72 cm) pf1 00:40 Pain Scale: Adult pf1 ED Course: 00:38 Patient arrived in ED. ag3 00:40 Omar Tijerina, RN is Primary Nurse. bp 00:48 Jamal Silver PA is PHCP. cp 00:48 Valdo Buck MD is Attending Physician. cp 01:00 No provider procedures requiring assistance completed. bp 01:00 Arm band placed on. bp 01:00 Patient has correct armband on for positive identification. Bed in low position. Call bp light in reach. Adult w/ patient. 01:01 Triage completed. pf1 01:23 Urinalysis W/Microscopic Sent. bp 02:18 Patient did not have IV access during this emergency room visit. bp Administered Medications: 01:20 Drug: Ketorolac IM 30 mg IM once Route: IM; Site: right gluteus; bp 02:18 Follow up: Response: No adverse reaction bp 01:20 Drug: Dexamethasone IM 10 mg IM once Route: IM; Site: right gluteus; bp 02:18 Follow up: Response: No adverse reaction bp Medication: 01:00 VIS not applicable for this client. bp Outcome: 02:02 Discharge ordered by MD. cp 02:18 Discharged to home ambulatory, with family, bp 02:18 Condition: stable 02:18 Discharge instructions given to patient, Instructed on discharge instructions, follow up and referral plans. medication usage, Demonstrated understanding of instructions, follow-up care, medications, Prescriptions given X 2, 02:18 Patient left the ED. bp Signatures: Jamal Silver PA PA cp Peltier, Brian, RN RN bp Yanira Marin ag3 Raquel Marvin RN RN pf1 Corrections: (The following items were deleted from the chart) 01:06 01:01 PMHx: kidney stones (Pneumonia); pf1 pf1
--- NOTE | 2023-10-03 02:03 | EDPHYS ---
Physician Documentation [facility] Name: Enmanuel Jones Age: 58 yrs Sex: Male : 1965 Arrival Date: 10/03/2023 Time: 00:33 Bed 7 Private MD: ED Physician Valdo Buck HPI: 10/03 01:04 This 58 yrs old Male presents to ER via Ambulatory with complaints of Low Back cp Pain. 01:04 The patient presents with pain that is acute, with no known mechanism of injury. The cp symptoms are located in the low back area and mid back area. The pain does not radiate. The problem was sustained from unknown cause. Onset: The symptoms/episode began/occurred yesterday, about 1300 while sitting and watching TV. Associated signs and symptoms: Pertinent positives: urinary frequency, Pertinent negatives: abdominal pain, chest pain, constipation, fever, numbness, urinary retention, weakness. Historical: - Allergies: 01:01 NKA; pf1 - PMHx: 01:01 ADD/ADHD; Diabetes - NIDDM; Hyperlipidemia; Hypertension; Myocardial infarction; pf1 Pneumonia; 01:04 urolithiasis; hemorrhoids; pf1 - PSHx: 01:04 Hemorrhoidectomy; pf1 - Immunization history:: Adult Immunizations up to date, Last tetanus immunization: > 10 years ago Flu vaccine is up to date. - Social history:: Smoking status: Patient denies any tobacco usage or history of. Patient/guardian denies using alcohol, street drugs. ROS: 01:10 Constitutional: Negative for body aches, chills, fever, poor PO intake, cp 01:10 Cardiovascular: Negative for chest pain, edema, palpitations, cp 01:10 Respiratory: Negative for cough, shortness of breath, wheezing, 01:10 Abdomen/GI: Negative for abdominal pain, vomiting, diarrhea, constipation, bowel incontinence, 01:10 Back: Positive for pain at rest, pain with movement, of the low back area and mid back area, Negative for injury or acute deformity, decreased range of motion, 01:10 : Positive for urinary frequency, Negative for hematuria, burning with urination, difficulty urinating, testicular pain 01:10 Skin: Negative for rash, 01:10 Neuro: Negative for altered mental status, dizziness, headache, numbness, syncope, weakness, 01:10 All other systems are negative, Exam: 01:15 Constitutional: The patient appears in no acute distress, alert, awake, non-toxic, well cp developed, well nourished, uncomfortable, 01:15 Head/Face: Normocephalic, atraumatic. cp 01:15 Eyes: Periorbital structures: appear normal, Conjunctiva: normal, no exudate, no cp injection, Sclera: no appreciated abnormality, Lids and lashes: appear normal, bilaterally, 01:15 ENT: External ear(s): are unremarkable, Nose: is normal, Mouth: Lips: moist, Oral cp mucosa: pink and intact, moist, Posterior pharynx: is normal, airway is patent, no erythema, no exudate, 01:15 Neck: ROM/movement: is normal, is supple, without pain, no range of motions limitations, 01:15 Chest/axilla: Inspection: normal, 01:15 Cardiovascular: Rate: normal, 01:15 Respiratory: the patient does not display signs of respiratory distress, Respirations: normal, no use of accessory muscles, no retractions, labored breathing, is not present, Breath sounds: are clear throughout, no decreased breath sounds, no stridor, no wheezing, 01:15 Abdomen/GI: Inspection: abdomen appears normal, Palpation: abdomen is soft and non-tender, in all quadrants, 01:15 Back: pain, that is moderate, of the low back area and mid back area, ROM is painful, with all movement, 01:15 Skin: cellulitis, is not appreciated, no rash present. 01:15 Neuro: Orientation: to person, place \T\ time. Mentation: is normal, Motor: moves all fours, strength is normal, Sensation: is normal, Gait: is steady, Vital Signs: 00:40 BP 144 / 101; Pulse 93; Resp 16; Temp 99; Pulse Ox 99% on R/A; Weight 115.67 kg; Height pf1 5 ft. 8 in. ; Pain 7/10; 00:40 Body Mass Index 38.77 (115.67 kg, 172.72 cm) pf1 00:40 Pain Scale: Adult pf1 MDM: 00:48 Patient medically screened. cp 01:30 Differential diagnosis: sciatica, Herniated disc UTI. cp 02:00 Data reviewed: vital signs, nurses notes, lab test result(s), urinalysis. I considered cp the following discharge prescriptions or medication management in the emergency department Medications were administered in the Emergency Department. See MAR. Care significantly affected by the following chronic conditions: Diabetes, Hypertension, Obesity. Counseling: I had a detailed discussion with the patient and/or guardian regarding the historical points, exam findings, and any diagnostic results supporting the discharge/admit diagnosis, lab results, the need for outpatient follow up, a family practitioner, to return to the emergency department if symptoms worsen or persist or if there are any questions or concerns that arise at home. Response to treatment: the patient's symptoms have markedly improved after treatment, and as a result, I will discharge patient. 10/03 01:06 Order name: Urinalysis W/Microscopic; Complete Time: 01:58 cp 10/03 01:58 Interpretation: Normal except: UGLUC 3+. cp Administered Medications: 01:20 Drug: Ketorolac IM 30 mg IM once Route: IM; Site: right gluteus; bp 02:18 Follow up: Response: No adverse reaction bp 01:20 Drug: Dexamethasone IM 10 mg IM once Route: IM; Site: right gluteus; bp 02:18 Follow up: Response: No adverse reaction bp Disposition Summary: 10/03/23 02:02 Discharge Ordered Notes: Location: Home cp Problem: new cp Symptoms: have improved cp Condition: Stable cp Diagnosis - Dorsalgia, unspecified cp Followup: cp - With: Private Physician - When: 2 - 3 days - Reason: Recheck today's complaints Discharge Instructions: - Discharge Summary Sheet cp - Acute Back Pain, Adult cp - Back Exercises cp Forms: - Medication Reconciliation Form cp - Thank You Letter cp - Antibiotic Education cp - Prescription Opioid Use cp - Patient Portal Instructions cp - Leadership Thank You Letter cp - Work release form rv1 Prescriptions: - Diclofenac Sodium 75 mg Oral tablet, delayed release (enteric coated) - take 1 tablet ORAL route 2 times per day; 20 tablet; Refills: 0, Product cp Selection Permitted - methocarbamol 750 mg Oral tablet - take 1 tablet ORAL route 3 times per day; 30 tablet; Refills: 0, Product cp Selection Permitted Addendum: 10/05/2023 12:38 Co-signature as Attending Physician, Valdo Buck MD I agree with the assessment s p4 and plan of care. I reviewed the patient's care provided by the Advanced Practice Provider and agree with the diagnosis and treatment plan. Signatures: Dispatcher [employer] EDMS Jamal Silver PA PA cp Peltier, Brian, RN RN Raquel Pruett RN RN pf1 Valdo Buck MD MD sp4 Corrections: (The following items were deleted from the chart) 10/03 01:06 01:01 PMHx: kidney stones (Pneumonia); pf1 pf1 02:02 02:02 Low back pain cp cp
[2023-10-03 02:46] VITALS: BP 144/101; TEMP 99; O2SAT 99
== END 2023-10-03 02:18 | disposition home or self-care (01) ==
LOC: ER 00:33
DX: M54.9 Dorsalgia, unspecified (principal); I10 Essential (primary) hypertension; E11.9 Type 2 diabetes mellitus without complications; E78.5 Hyperlipidemia, unspecified
CPT/HCPCS: 81001; 96372; 99284; J1100